=== PATIENT | male | born 1950 | race Caucasian/White ===

== ENCOUNTER 2018-12-04 23:52 | Inpatient (IN) | payer MEDICARE, SELFPAY ==
[~2018-12-04] VITALS: Ht 180.3 cm; Wt 161.0 kg
[2018-12-05 01:24] LABS: BASO # 0.1 x10^3/uL (0.0-0.2); BASO % 1 % (0-3); EOS # 0.5 x10^3/uL (0.0-0.7); EOS % 6 % (0-3); HEMOGLOBIN 13.9 g/dL (13.0-17.5); LYMPH # 0.7 x10^3/uL (1.0-4.8); LYMPH % 8 % (24-48); MEAN CORPUSCULAR HEMOGLOBIN 32 pg (25-35); MEAN CORPUSCULAR HGB CONC 32 g/dL (31-37); MEAN CORPUSCULAR VOLUME 98 fL (79-100); MONO # 0.8 x10^3/uL (0.0-1.1); MONO % 10 % (0-9); NEUT # 6.3 x10^3uL (1.8-7.7); NEUT % 75 % (31-73); PLATELET COUNT 241 x10^3/uL (140-400); RED BLOOD COUNT 4.37 x10^6/uL (4.30-5.70); WHITE BLOOD COUNT 8.4 x10^3/uL (4.0-11.0)
[2018-12-05 01:39] LABS: CALCIUM 8.8 mg/dL (8.5-10.1); CREATININE 1.4 mg/dL (0.7-1.3); GFR 50.1; POTASSIUM 4.3 mmol/L (3.5-5.1)
[2018-12-05 01:44] LABS: ALBUMIN 3.3 g/dL (3.4-5.0); ALBUMIN/GLOBULIN RATIO 0.6 (1.0-1.7); TOTAL BILIRUBIN 0.6 mg/dL (0.2-1.0); TOTAL PROTEIN 8.6 g/dL (6.4-8.2)
[2018-12-05] MEDS ORDERED: IPRATRPIUM/ALBUTEROL 0.5/2.5MG 3 ML NEBU. NEB ONE (02:00)
[2018-12-05 03:00] VITALS: BP 160/78
--- NOTE | 2018-12-05 03:21 | PHYS DOC ---
Past Medical History Past Medical History: COPD, CVA, Diabetes-Type II, Heart Disease, Hypertension, Renal Disease, Stroke Past Surgical History: Pacemaker Additional Past Surgical Histo: HERNIA Alcohol Use: None Drug Use: None Adult General Chief Complaint Chief Complaint: SHORTNESS OF BREATH HPI HPI Patient is a 68 year old male with history of COPD, as heart failure, who presents with increased leg swelling with weeping of bilateral lower extremities. Patient has history of chronic respiratory failure requiring 4 L by nasal cannula. His reported to have O2 saturation and upper 80s. No fever chills, nausea vomiting or sweats. No chest pain, shortness of breath. Denies history of DVT or PE. No other acute symptoms or complaints.[] Review of Systems Review of Systems Review symptoms as per history of present illness. All other review symptoms are negative. All other systems were reviewed and found to be within normal limits, except as documented in this note. Current Medications Current Medications Current Medications Medications (Trade) Dose Ordered Sig/Clau Start Time Stop Time Status Last Admin Dose Admin Albuterol/ Ipratropium (Duoneb) 3 ml 1X ONCE 12/05/18 02:00 12/05/18 02:01 DC 12/05/18 01:50 3 ML Allergies Allergies Allergies Coded Allergies Type Severity Reaction Last Updated Verified adhesive tape Allergy Intermediate 12/05/18 Yes Physical Exam Physical Exam Constitutional: Well developed, well nourished, no acute distress, non-toxic ap pearance. [] HENT: Normocephalic, atraumatic, bilateral external ears normal, nose normal. [] Eyes: PERRL. [] Neck: Normal range of motion. [] Cardiovascular:Heart rate regular rhythm, no murmur, peripheral edema, negative Homans sign/ [] Lungs & Thorax: Respirations diminished coarse breath sounds bilaterally.[] Abdomen: Bowel sounds normal, soft, ventral wall hernia. [] Skin: Warm, dry, no erythema, no rash. [] Back: No tenderness, no CVA tenderness. [] Extremities: Left hand partial amputation[] Neurologic: Alert and oriented X 3, normal motor function, normal sensory functi on, no focal deficits noted. [] Psychologic: Affect normal, judgement normal, mood normal. [] Current Patient Data Vital Signs Vital Signs Date Time Temp Pulse Resp B/P (MAP) Pulse Ox O2 Delivery O2 Flow Rate FiO2 12/05/18 01:49 96 Nasal Cannula 4.0 12/05/18 01:32 72 137/71 (93) 12/05/18 00:08 98.7 22 98.7 Lab Values Laboratory Tests Test 12/05/18 01:10 White Blood Count 8.4 x10^3/uL (4.0-11.0) Red Blood Count 4.37 x10^6/uL (4.30-5.70) Hemoglobin 13.9 g/dL (13.0-17.5) Hematocrit 43.0 % (39.0-53.0) Mean Corpuscular Volume 98 fL (79-100) Mean Corpuscular Hemoglobin 32 pg (25-35) Mean Corpuscular Hemoglobin Concent 32 g/dL (31-37) Red Cell Distribution Width 15.0 % (11.5-14.5) H Platelet Count 241 x10^3/uL (140-400) Neutrophils (%) (Auto) 75 % (31-73) H Lymphocytes (%) (Auto) 8 % (24-48) L Monocytes (%) (Auto) 10 % (0-9) H Eosinophils (%) (Auto) 6 % (0-3) H Basophils (%) (Auto) 1 % (0-3) Neutrophils # (Auto) 6.3 x10^3uL (1.8-7.7) Lymphocytes # (Auto) 0.7 x10^3/uL (1.0-4.8) L Monocytes # (Auto) 0.8 x10^3/uL (0.0-1.1) Eosinophils # (Auto) 0.5 x10^3/uL (0.0-0.7) Basophils # (Auto) 0.1 x10^3/uL (0.0-0.2) Sodium Level 142 mmol/L (136-145) Potassium Level 4.3 mmol/L (3.5-5.1) Chloride Level 105 mmol/L (98-107) Carbon Dioxide Level 31 mmol/L (21-32) Anion Gap 6 (6-14) Blood Urea Nitrogen 24 mg/dL (8-26) Creatinine 1.4 mg/dL (0.7-1.3) H Estimated GFR (Cockcroft-Gault) 50.1 BUN/Creatinine Ratio 17 (6-20) Glucose Level 99 mg/dL (70-99) Lactic Acid Level 0.6 mmol/L (0.4-2.0) Calcium Level 8.8 mg/dL (8.5-10.1) Total Bilirubin 0.6 mg/dL (0.2-1.0) Aspartate Amino Transferase (AST) 16 U/L (15-37) Alanine Aminotransferase (ALT) 19 U/L (16-63) Alkaline Phosphatase 89 U/L (46-116) Troponin I Quantitative < 0.017 ng/mL (0.000-0.055) C-Reactive Protein, Quantitative 20.0 mg/L (0-3.3) H ND-Pkp-U-Type Natriuretic Peptide 744 pg/mL (0-124) H Total Protein 8.6 g/dL (6.4-8.2) H Albumin 3.3 g/dL (3.4-5.0) L Albumin/Globulin Ratio 0.6 (1.0-1.7) L Laboratory Tests 12/05/18 01:10 Laboratory Tests 12/05/18 01:10 EKG EKG [EKG: Atrial fibrillation, rate 95, QTC 504.] Radiology/Procedures Radiology/Procedures [Chest x-ray: Cardiomegaly, question left pleural effusion versus infiltrate on preliminary ED review] Course & Med Decision Making Course & Med Decision Making Pertinent Labs and Imaging studies reviewed. (See chart for details) [Patient given nebs, for treatment of CHF exacerbation. IV Lasix ordered after patient admitted. Patient declining BiPAP mask in the ED. ] Dragon Disclaimer Dragon Disclaimer This electronic medical record was generated, in whole or in part, using a voice recognition dictation system. Departure Departure Impression: Primary Impression: Acute and chronic respiratory failure Additional Impression: Congestive heart failure Disposition: 09 ADMITTED INPATIENT Admitting Physician: Berta Srivastava Condition: IMPROVED Referrals: NON,STAFF (PCP) Problem Qualifiers RANDEE FRANCO DO December 05, 2018 03:21
[2018-12-05] MEDS ORDERED: FUROSEMIDE 20 MG/2 ML VIAL. IVP ONE (03:30)
[2018-12-05] MEDS ORDERED: ONDANSETRON PF 4 MG/2 ML VIAL. IV PRN (03:30)
--- NOTE | 2018-12-05 03:34 | RAD ---
CHEST AP ONLY Clinical Indication: Shortness of air Comparison: None. Findings: There is left chest dual-chamber ICD. Atherosclerotic thoracic aorta. Cardiac size appears normal. There is mild pulmonary vascular congestion. Reticular opacity in the right lung base may be atelectasis or scarring. There is airspace opacity in the left mid to lower lung. There is no pleural effusion or pneumothorax. There is degenerative arthropathy of the bilateral shoulders. IMPRESSION: 1. Moderate left mid and lower lung airspace disease. 2. Mild pulmonary vascular congestion. Electronically signed by: Evan Fernandez MD (12/05/2018 3:31 AM) [facility]
[2018-12-05 07:00] VITALS: BP 142/94
[2018-12-05] MEDS: IPRATRPIUM/ALBUTEROL 0.5/2.5MG 3 ML NEBU. NEB SCH ×4 (08:00→20:00)
[2018-12-05] MEDS ORDERED: FUROSEMIDE 20 MG/2 ML VIAL. IVP SCH (09:00)
[2018-12-05] MEDS ORDERED: NYST15PO9 TP (09:09)
[2018-12-05] MEDS ORDERED: POLY17PO PO (09:09)
[2018-12-05] MEDS ORDERED: ASPI-630 PO (09:09)
[2018-12-05] MEDS ORDERED: DIPH25CA20 PO (09:09)
[2018-12-05] MEDS ORDERED: CARV6.2511 PO (09:09)
[2018-12-05] MEDS ORDERED: TORS20TA2 PO (09:09)
[2018-12-05] MEDS ORDERED: AMIO200T4 PO (09:09)
[2018-12-05] MEDS ORDERED: GLIM2TAB2 PO (09:09)
[2018-12-05] MEDS ORDERED: WARF4TAB64 PO (09:09)
[2018-12-05] MEDS ORDERED: SODI45SP4 NS (09:09)
[2018-12-05] MEDS ORDERED: AMLO5TAB10 PO (09:09)
[2018-12-05] MEDS ORDERED: ACET325T9 PO (09:09)
[2018-12-05] MEDS ORDERED: AMMO226L TP (09:09)
[2018-12-05 09:27] LABS: BASE EXCESS ABG 2 mmol/L (-3-3); HCO3 ABG 27 mmol/L (21-28); PCO2 ABG 44 mmHg (35-46); PO2 ABG 67 mmHg (65-108); SAT O2 ABG 93 % (92-99)
[2018-12-05 09:30] LABS: FIO2 ABG 36%
[2018-12-05] MEDS ORDERED: SODIUM CHLORIDE 0.65% NASAL SPRAY 45ML BOTTLE. NS PRN ×2 (09:45)
[2018-12-05] MEDS: GLIMEPIRIDE 2 MG TABLET. PO SCH (09:47)
[2018-12-05] MEDS: AMIODARONE HCL 200 MG TABLET. PO SCH (09:47)
[2018-12-05] MEDS: amLODIPine BESYLATE 5 MG TABLET PO SCH (09:47)
[2018-12-05] MEDS: ASPIRIN CHEWABLE 81 MG TABLET. PO SCH (09:47)
[2018-12-05] MEDS: CARVEDILOL 6.25 MG TABLET. PO SCH ×2 (09:48→17:13)
[2018-12-05] MEDS: POLYETHYLENE GLYCOL 3350 17 GM PACKET. PO SCH (10:00)
[2018-12-05] MEDS: AMMONIUM LACTATE 12% TOPICAL LOTION 226GM BOTTLE. TP SCH ×3 (10:00→20:39)
[2018-12-05] MEDS ORDERED: PIP/TAZO PER PHARMACY MC PRN (10:00)
[2018-12-05] MEDS: NYSTATIN TOPICAL POWDER 15GM BOTTLE. TP SCH ×3 (10:11→20:39)
[2018-12-05] MEDS: PIPERACILLIN/TAZOBACTAM 3.375 GM in IV NORMAL SALINE 50ML 50 ML IV SCH ×3 (10:12→23:58)
[2018-12-05 10:27] LABS: PROTHROMBIN TIME PATIENT 32.7 SEC (11.7-14.0)
[2018-12-05 11:00] VITALS: BP 138/88
[2018-12-05] MEDS ORDERED: VANCOMYCIN 2 GM in IV NORMAL SALINE 500ML BAG 500 ML IV ONE (11:00)
--- NOTE | 2018-12-05 11:02 | HP ---
ADMIT DATE: 12/05/2018 HISTORY OF PRESENT ILLNESS: The patient is a 68-year-old male patient, a resident at [facility] in [place], who was basically admitted with increasing shortness of breath and worsening swelling of his legs that are weeping on both sides. The patient has also morbid obesity and obstructive sleep apnea, for which he is on BiPAP and apparently given his worsening leg swelling and shortness of breath, a decision was made to transfer him to the Emergency Room of [facility] as he was also hypoxic with oxygen saturation of only 80%. He was extensively investigated and has had a chest x-ray which showed that he has mild to moderate left mid and lower lung airspace disease and mild pulmonary vascular congestion and the patient was admitted with acute on chronic congestive heart failure and COPD exacerbation. He has also severe intertriginous candidiasis and urinary incontinence making that worse. He is diabetic and he is very noncompliant with all his medications. PAST MEDICAL HISTORY: Significant for type 2 diabetes mellitus, hypertension, chronic kidney disease, atrial fibrillation, morbid obesity and obstructive sleep apnea, on CPAP. He has chronic hypoxic hypercapnic respiratory failure, cardiomyopathy, cerebrovascular accident, ventricular tachycardia for which he has AICD and also chronic intertriginous candidiasis. PAST SURGICAL HISTORY: Significant for left heart catheterization, hernia repair, colonoscopy, AICD implantation for ventricular tachycardia. FAMILY HISTORY: Both parents had hypertension. SOCIAL HISTORY: He is single, used to live alone, was a registered nurse. According to him, he does not smoke, drink alcohol or use any recreational drugs. ALLERGIES: He is allergic to TAPE. MEDICATIONS: He is currently on following medications; he is on diphenhydramine 25 mg every 6 hours, Coumadin 4 mg daily, amiodarone 200 mg once a day, carvedilol 6.25 mg twice a day, amlodipine besylate 5 mg daily, aspirin 81 mg once a day, acetaminophen 650 mg every 4 hours, torsemide 20 mg daily, sodium chloride for Saline Mist one spray to each nostril every 4 hours as needed, polyethylene glycol 17 grams daily, glimepiride 2 mg once a day, nystatin powder topically 3 times a day, and ammonium lactate for Lac-Hydrin apply topically twice a day for his dry skin. REVIEW OF SYSTEMS: As per history of present illness. PHYSICAL EXAMINATION: GENERAL: On arrival to the Emergency Room, the patient was slightly tachypneic. There is no pallor, jaundice, cyanosis, or thyromegaly. No jugular venous distention. Marked bilateral lower limb edema. VITAL SIGNS: His heart rate was 84, blood pressure was 122/71, temperature was 98.7, respiratory rate was 52 and oxygen saturation was only 90% on 3 liters of oxygen. HEAD, EYES, EARS, NOSE AND THROAT: Showed normocephalic, atraumatic. NECK: Supple. HEART: Showed normal first and second heart sounds. No gallop, rub or murmur. CHEST: Shows central trachea, equal bilateral chest expansion, air entry, vesicular breath sounds. He has crepitation, mostly in the right side serially. Scattered rhonchi bilaterally. ABDOMEN: Markedly distended, soft with the periumbilical hernia. There is no tenderness. No guarding or rigidity. No organomegaly. All hernial orifices intact. Bowel sounds normal. NEUROLOGIC: He is awake and alert, responding appropriately. All cranial nerves intact. He moves extremities without difficulty, although he is mostly bed bound and wheelchair bound. LABORATORY DATA AND DIAGNOSTIC STUDIES: His lab work on arrival showed a white cell count of 8400, hemoglobin 13.9, hematocrit 43, MCV 98 and platelet count of 241,000 with normal manual differential. His chemistry showed serum sodium of 142, potassium 4.3, chloride 105, bicarbonate 31, anion gap of 6, BUN 24, creatinine 1.4, estimated GFR was 50 mL per minute, his glucose was 99, calcium was 8.8. Total bilirubin, AST, ALT, alkaline phosphatase normal. His total protein was 8.6, albumin was 3.3. His chest x-ray showed that there is a left chest dual chamber ICD, has atherosclerotic thoracic aorta. Cardiac size appears normal. There is mild pulmonary vascular congestion; reticular opacity in the right lung base, may be atelectasis or scarring. There is airspace opacity in the left mid to lower lung. There is no pleural effusion or pneumothorax. There is degenerative arthropathy in the bilateral shoulders. ASSESSMENT AND PLAN: The patient was admitted with chronic obstructive pulmonary disease exacerbation, acute on chronic hypoxic hypercapnic respiratory failure and questionable healthcare-associated pneumonia as chest x-ray showed that he has left lower lobe infiltrate and he has also congestive heart failure, probably acute diastolic and chronic and he has urinary incontinence for which he has an indwelling Jacome catheter and also severe intertriginous candidiasis that is very resistant to treatment to treat him with multiple courses of nystatin powder as well as Diflucan. The patient unfortunately is very noncompliant, does not allow us to check his blood sugars and the glucosuria probably aggravates his candidiasis. My plan is to resume all his medications, consult the Communications Senior Associate, check his prothrombin time, INR as well as his arterial blood gases and also consult the Cardiology team to optimize his treatment. We will continue with nystatin topically for now and if he continues to have problem with that, we will consult the Infectious Disease. RENEA RAGLAND MD DR: ANGEL/nila JOB#: [id number] / [id number]
--- NOTE | 2018-12-05 11:05 | RAD ---
Bilateral lower extremity venous duplex study 12/05/2018 Clinical History: Bilateral leg swelling. Noncompliant with Coumadin. Technique: Using a combination of real time ultrasound imaging and color-flow and pulse Doppler imaging techniques along with graded compression and augmentation, duplex evaluation of the deep venous system of the both lower extremities was performed. Multiple images were obtained. Findings: There is no sonographic evidence of deep venous thrombosis involving the visualized deep venous structures of either lower extremity. Impression: Negative study. Electronically signed by: Abhishek Price MD (12/05/2018 11:02 AM) [facility]
[2018-12-05] MEDS: diphenhydrAMINE HCL 25 MG CAPSULE PO SCH ×2 (11:50→16:57)
[2018-12-05] MEDS: VANCOMYCIN PER PHARMACY MC PRN (12:47)
--- NOTE | 2018-12-05 12:59 | NUR ---
Pharmacy Vancomycin Dosing Note S:Consulted to monitor and dose vancomycin started 12/05/18. O:BRITTANY DOAN is a 68 year old M with Pneumonia Height: 6 feet, 1 inches Weight: 161 kg [place] Body Weight: 79.90 Adjusted Body Weight: 112.34 Dosing Weight: ADJUSTED Other Antibiotics: ZOSYN LABS: Last BUN: 24 Last Creatinine: 1.4 Creatinine Clearance: 78 mL/min Last WBC: 8.4 Last Procalcitonin: <0.1 Tmax (past 24 hours): 98.1 Microbiology: I/O: 240/1250 Drug Levels: Last level: on at Last dose given 12/05/18 at 1051 Vancomycin Dosing: Loading Dose: 2000 mg x1 Dosing Weight: Actual Target Trough: 15-20 A: Based on: WEIGHT AND RENAL FUNCTION P: 1. BEGIN Vancomycin 1500 mg IV q12h 2. Follow up Trough level on 12/06/18 at 2230 3. Pharmacy will continue to monitor, follow and adjust therapy as needed. Stacie Taylor RPH, 12/05/18 [id number]
[2018-12-05 15:00] VITALS: BP 122/65
--- NOTE | 2018-12-05 15:57 | EKG ---
[facility] [address] [place] [address] Test Date: 2018-12-05 Test Time: 00:51:48 Pat Name: BRITTANY DOAN Department: Room: [facility] Gender: M Hospital Admissions Clerk: : 1950 Requested By: RANDEE FRANCO Order Number: [id number] Reading MD: Sherif Quezada MD Measurements Intervals [place] Rate: 95 P: CT: QRS: -31 QRSD: 118 T: 56 QT: 398 QTc: 503 Interpretive Statements ATRIAL FIBRILLATION ABNORMAL LEFT AXIS DEVIATION LEFT ANTERIOR FASCICULAR BLOCK QRS(T) CONTOUR ABNORMALITY CONSIDER ANTEROSEPTAL MYOCARDIAL DAMAGE PROLONGED QT ABNORMAL ECG Electronically Signed On 12-05-2018 17:02:46 CDT by Sherif Quezada MD
--- NOTE | 2018-12-05 16:16 | PDOC ---
PULMONARY PROGRESS NOTES Vitals Vital Signs Date Time Temp Pulse Resp B/P (MAP) Pulse Ox O2 Delivery O2 Flow Rate FiO2 12/05/18 11:00 98.1 87 18 138/88 (105) 96 Nasal Cannula 4.0 98.1 Labs Laboratory Tests Test 12/05/18 01:10 12/05/18 07:14 12/05/18 09:15 12/05/18 11:26 White Blood Count 8.4 x10^3/uL (4.0-11.0) Red Blood Count 4.37 x10^6/uL (4.30-5.70) Hemoglobin 13.9 g/dL (13.0-17.5) Hematocrit 43.0 % (39.0-53.0) Mean Corpuscular Volume 98 fL (79-100) Mean Corpuscular Hemoglobin 32 pg (25-35) Mean Corpuscular Hemoglobin Concent 32 g/dL (31-37) Red Cell Distribution Width 15.0 % (11.5-14.5) Platelet Count 241 x10^3/uL (140-400) Neutrophils (%) (Auto) 75 % (31-73) Lymphocytes (%) (Auto) 8 % (24-48) Monocytes (%) (Auto) 10 % (0-9) Eosinophils (%) (Auto) 6 % (0-3) Basophils (%) (Auto) 1 % (0-3) Neutrophils # (Auto) 6.3 x10^3uL (1.8-7.7) Lymphocytes # (Auto) 0.7 x10^3/uL (1.0-4.8) Monocytes # (Auto) 0.8 x10^3/uL (0.0-1.1) Eosinophils # (Auto) 0.5 x10^3/uL (0.0-0.7) Basophils # (Auto) 0.1 x10^3/uL (0.0-0.2) Prothrombin Time 32.7 SEC (11.7-14.0) Prothromb Time International Ratio 3.2 (0.8-1.1) Sodium Level 142 mmol/L (136-145) Potassium Level 4.3 mmol/L (3.5-5.1) Chloride Level 105 mmol/L (98-107) Carbon Dioxide Level 31 mmol/L (21-32) Anion Gap 6 (6-14) Blood Urea Nitrogen 24 mg/dL (8-26) Creatinine 1.4 mg/dL (0.7-1.3) Estimated GFR (Cockcroft-Gault) 50.1 BUN/Creatinine Ratio 17 (6-20) Glucose Level 99 mg/dL (70-99) Lactic Acid Level 0.6 mmol/L (0.4-2.0) Calcium Level 8.8 mg/dL (8.5-10.1) Total Bilirubin 0.6 mg/dL (0.2-1.0) Aspartate Amino Transf (AST/SGOT) 16 U/L (15-37) Alanine Aminotransferase (ALT/SGPT) 19 U/L (16-63) Alkaline Phosphatase 89 U/L (46-116) Troponin I Quantitative < 0.017 ng/mL (0.000-0.055) C-Reactive Protein, Quantitative 20.0 mg/L (0-3.3) FG-Bti-T-Type Natriuretic Peptide 744 pg/mL (0-124) Total Protein 8.6 g/dL (6.4-8.2) Albumin 3.3 g/dL (3.4-5.0) Albumin/Globulin Ratio 0.6 (1.0-1.7) Procalcitonin < 0.10 ng/mL (0.00-0.10) Glucose (Fingerstick) 153 mg/dL (70-99) 137 mg/dL (70-99) O2 Saturation 93 % (92-99) Arterial Blood pH 7.41 (7.35-7.45) Arterial Blood pCO2 at Patient Temp 44 mmHg (35-46) Arterial Blood pO2 at Patient Temp 67 mmHg (65-108) Arterial Blood HCO3 27 mmol/L (21-28) Arterial Blood Base Excess 2 mmol/L (-3-3) FiO2 36% Laboratory Tests Test 12/05/18 01:10 12/05/18 07:14 12/05/18 09:15 12/05/18 11:26 White Blood Count 8.4 x10^3/uL (4.0-11.0) Red Blood Count 4.37 x10^6/uL (4.30-5.70) Hemoglobin 13.9 g/dL (13.0-17.5) Hematocrit 43.0 % (39.0-53.0) Mean Corpuscular Volume 98 fL (79-100) Mean Corpuscular Hemoglobin 32 pg (25-35) Mean Corpuscular Hemoglobin Concent 32 g/dL (31-37) Red Cell Distribution Width 15.0 % (11.5-14.5) Platelet Count 241 x10^3/uL (140-400) Neutrophils (%) (Auto) 75 % (31-73) Lymphocytes (%) (Auto) 8 % (24-48) Monocytes (%) (Auto) 10 % (0-9) Eosinophils (%) (Auto) 6 % (0-3) Basophils (%) (Auto) 1 % (0-3) Neutrophils # (Auto) 6.3 x10^3uL (1.8-7.7) Lymphocytes # (Auto) 0.7 x10^3/uL (1.0-4.8) Monocytes # (Auto) 0.8 x10^3/uL (0.0-1.1) Eosinophils # (Auto) 0.5 x10^3/uL (0.0-0.7) Basophils # (Auto) 0.1 x10^3/uL (0.0-0.2) Prothrombin Time 32.7 SEC (11.7-14.0) Prothromb Time International Ratio 3.2 (0.8-1.1) Sodium Level 142 mmol/L (136-145) Potassium Level 4.3 mmol/L (3.5-5.1) Chloride Level 105 mmol/L (98-107) Carbon Dioxide Level 31 mmol/L (21-32) Anion Gap 6 (6-14) Blood Urea Nitrogen 24 mg/dL (8-26) Creatinine 1.4 mg/dL (0.7-1.3) Estimated GFR (Cockcroft-Gault) 50.1 BUN/Creatinine Ratio 17 (6-20) Glucose Level 99 mg/dL (70-99) Lactic Acid Level 0.6 mmol/L (0.4-2.0) Calcium Level 8.8 mg/dL (8.5-10.1) Total Bilirubin 0.6 mg/dL (0.2-1.0) Aspartate Amino Transf (AST/SGOT) 16 U/L (15-37) Alanine Aminotransferase (ALT/SGPT) 19 U/L (16-63) Alkaline Phosphatase 89 U/L (46-116) Troponin I Quantitative < 0.017 ng/mL (0.000-0.055) C-Reactive Protein, Quantitative 20.0 mg/L (0-3.3) BL-Dfq-P-Type Natriuretic Peptide 744 pg/mL (0-124) Total Protein 8.6 g/dL (6.4-8.2) Albumin 3.3 g/dL (3.4-5.0) Albumin/Globulin Ratio 0.6 (1.0-1.7) Procalcitonin < 0.10 ng/mL (0.00-0.10) Glucose (Fingerstick) 153 mg/dL (70-99) 137 mg/dL (70-99) O2 Saturation 93 % (92-99) Arterial Blood pH 7.41 (7.35-7.45) Arterial Blood pCO2 at Patient Temp 44 mmHg (35-46) Arterial Blood pO2 at Patient Temp 67 mmHg (65-108) Arterial Blood HCO3 27 mmol/L (21-28) Arterial Blood Base Excess 2 mmol/L (-3-3) FiO2 36% Medications Active Scripts Medications Dose Route/Sig Max Daily Dose Days Date Category Saline Mist (Sodium Chloride) 44 Ml [place] 44 Ml NS PRN PRN 12/05/18 Reported Banophen (Diphenhydramine Hcl) 25 Mg Capsule 25 Mg PO Q6HRS 12/05/18 Reported Tylenol (Acetaminophen) 325 Mg Tablet 2 Tab PO PRN Q4HRS 12/05/18 Reported Warfarin Sodium 4 Mg Tablet 4 Mg PO DAILY 12/05/18 Reported Lac-Hydrin Five (Ammonium Lactate) 226 Gm Lotion 226 Gm TP BID 12/05/18 Reported Nystatin 15 Gm Powder 1 [place] TP TID 12/05/18 Reported Carvedilol (Carvedilol) 6.25 Mg Tablet 6.25 Mg PO BIDWMEALS 12/05/18 Reported Torsemide 20 Mg Tablet 1 Tab PO DAILY 12/05/18 Reported Glimepiride 2 Mg Tablet 1 Tab PO DAILY 12/05/18 Reported Gavilax (Polyethylene Glycol 3350) 17 Gm Powd.pack 17 Gm PO DAILY08 12/05/18 Reported Aspirin 81 Mg Tab.chew 1 Tab PO DAILY 12/05/18 Reported Amlodipine Besylate 5 Mg Tablet 5 Mg PO DAILY 12/05/18 Reported Amiodarone Hcl 200 Mg Tablet 1 Tab PO DAILY 12/05/18 Reported Impression . A/C RESP FAILURE ACUTE COR PULMONALE PNEUMONIA THANKS AGREE WITH CURRENT RX ZORA CATHERINE MD December 05, 2018 16:16
--- NOTE | 2018-12-05 17:25 | PDOC2 ---
CARDIOLOGY CONSULT NOTE CHEIF COMPLAINT: Swelling in my legs HPI: Consult requested by Dr. RAGLAND 68-year-old man with multiple comorbidities who presents to the hospital with lower extremity edema. Current working diagnosis is that of acute exacerbation of COPD. The patient was quite difficult to interview and seems to have poor insight into his current physical state. He denied any chest pain or dyspnea but then later stated that he is able to only get around in a wheelchair mostly due to his morbid obesity. He blamed most of his weight gain on food that he receives at the detention. He denies any syncope, palpitations, orthopnea or PND. He hasn't struggling with lower 70 edema for several months. He is currently also being treated for a COPD exacerbation and is on home oxygen therapy. Although the patient has significant cardiovascular history he during the interview denied any specific cardiac problems. PMHX: 1. Morbid obesity 2. COPD 3. Diabetes 4. Hypertension 5. Dyslipidemia 6. Probable diastolic heart failure chronic 7. Probable bilateral venous stasis changes, lymphedema and venous insufficiency. 8. History of ventricular tachycardia, ? ischemic or NICM and s/p dual chamber ICD 9. Atrial fibrillation - likely permanent SOCHX: He lives in a detention. Denies any excessive alcohol use. He does not smoke. FAMHX: Noncontributory CURRENT MEDS: Current Medications Medications (Trade) Dose Ordered Sig/Clau Start Time Stop Time Status Last Admin Dose Admin Acetaminophen (Tylenol) 650 mg PRN Q4HRS PRN 12/05/18 09:45 Albuterol/ Ipratropium (Duoneb) 3 ml RTQID 12/05/18 08:00 12/06/18 07:59 Amiodarone HCl (Cordarone) 200 mg DAILY 12/05/18 10:00 12/05/18 09:47 200 MG Amlodipine Besylate (Norvasc) 5 mg DAILY 12/05/18 10:00 12/05/18 09:47 5 MG Aspirin (Children'S Aspirin) 81 mg DAILY 12/05/18 10:00 12/05/18 09:47 81 MG Carvedilol (Coreg) 6.25 mg BIDWMEALS 12/05/18 10:00 12/05/18 09:48 6.25 MG Diphenhydramine HCl (Benadryl) 25 mg Q6HRS 12/05/18 12:00 Furosemide (Lasix) 40 mg DAILY 12/06/18 09:00 Glimepiride (Amaryl) 2 mg DAILY 12/05/18 10:00 12/05/18 09:47 2 MG Lactic Acid (Lac-Hydrin) 1 karen BID 12/05/18 10:00 Nystatin (Nystop) 1 karen TID 12/05/18 10:00 12/05/18 15:05 1 KAREN Ondansetron HCl (Zofran) 4 mg PRN Q8HRS PRN 12/05/18 03:30 12/06/18 03:29 Piperacillin Sod/ Tazobactam Sod (Zosyn Per Pharmacy) 1 each PRN DAILY PRN 12/05/18 10:00 Piperacillin Sod/ Tazobactam Sod 3.375 gm/Sodium Chloride 50 ml @ 100 mls/hr Q6HRS 12/05/18 10:30 12/05/18 10:12 100 MLS/HR Polyethylene Glycol (miraLAX PACKET) 17 gm DAILY08 12/05/18 10:00 Sodium Chloride (Saline Mist Nasal) 1 karen PRN Q1HR PRN 12/05/18 09:45 Vancomycin HCl (Vanco Per Pharmacy) 1 each PRN DAILY PRN 12/05/18 10:00 12/05/18 12:47 1 EACH Vancomycin HCl (Vancomycin Trough Level) 1 each 1X ONCE 12/06/18 22:30 12/06/18 22:31 Vancomycin HCl 1.5 gm/Sodium Chloride 500 ml @ 250 mls/hr Q12H 12/05/18 23:00 Vancomycin HCl 2 gm/Sodium Chloride 500 ml @ 250 mls/hr 1X ONCE 12/05/18 11:00 12/05/18 12:59 DC 12/05/18 10:51 250 MLS/HR Warfarin Sodium (Coumadin Per Physician) 1 each PRN DAILY PRN 12/05/18 09:45 12/05/18 14:20 1 EACH Warfarin Sodium (Coumadin) 4 mg DAILY16 12/06/18 16:00 ALLERGIES: Allergies Coded Allergies Type Severity Reaction Last Updated Verified adhesive tape Allergy Intermediate 12/05/18 Yes ROS: Negative for 05/09 systems reviewed unless otherwise noted above in HPI. PHYSICAL EXAM: Vital Signs: Vital Signs Date Time Temp Pulse Resp B/P (MAP) Pulse Ox O2 Delivery O2 Flow Rate FiO2 12/05/18 15:00 98.6 93 18 122/65 (84) 93 Nasal Cannula 4.0 98.6 I & O Intake and Output 12/05/18 07:00 Intake Total 240 ml Output Total 1250 ml Balance -1010 ml Intake Oral 240 ml Output Urine Total 1250 ml Physical Exam: GEN.: He is morbidly obese and has tachypnea with eating/talking HEENT: Head is normocephalic, atraumatic NECK: Supple. LUNGS: Decreased breath sounds throughout. HEART: RRR, S1, S2 present. 2+ radial pulses. Unable to palpate pedal pulses. ABDOMEN: Soft, nontender. Positive bowel sounds. EXTREMITIES: 2+ pitting edema, chronic venous stasis changes. NEUROLOGIC: Normal speech, normal tone PSYCHIATRIC: Normal affect, normal mood. SKIN: No obvious ulcerations. DIAGNOSTIC TESTING: Cr 1.4 Hgb/plts wnl. CXR reviewed. Ekg with afib. ASSESSMENT: 1. Acute on chronic probable diastolic HF, 2. s/p ICD with prior arrhythmia 3. Bilateral chronic venous insufficiency, lymphedema likely due to obesity and other comorbidities. PLAN: 1. I spoke with the patient regarding treatment options. He flat out told me that he will not get any further CV interventions. He does not want any invasive procedures. Therefore, we will obtain an echo to ensure that he doesn't have any significant LV dysfunction, which may alter his medical therapy. 2. Continue amiodarone, warfarin for afib. 3. Continue lasix, coreg and amlodipine. Await EF prior to initiation of any after load reducing agents. 4. Check ICD interrogation to rule out arrhythmias. Thanks. Will follow along peripherally. FADY DUMONT MD December 05, 2018 17:25
--- NOTE | 2018-12-05 17:44 | NUR ---
See Nursing Communication. Wu at [employer] at notified for interrogation of ICD tomorrow per order.
[2018-12-05] MEDS: ACETAMINOPHEN 325 MG TABLET. PO PRN (18:36)
[2018-12-05 19:57] VITALS: BP 121/64
--- NOTE | 2018-12-05 21:54 | CONS ---
DATE OF CONSULTATION: 12/05/2018 ATTENDING PHYSICIAN: Dr. Brennan. REASON FOR CONSULTATION: The patient seen in pulmonary consultation at the request of Dr. Brennan for shortness of air, abnormal x-ray revealing left lower lobe airspace disease. HISTORY OF PRESENT ILLNESS: The patient is a 68-year-old that resides at [facility] in [place] was admitted with increasing shortness of breath and lower extremity edema. The patient states he normally wears BiPAP at home. He is compliant with the BiPAP at 5 liters per nasal cannula. He does not walk much. He has noticed some increasing shortness of breath, mainly increasing lower extremity edema, some paroxysmal nocturnal dyspnea. He was found to be hypoxic with O2 saturations in the 80s. He had a chest x-ray, which revealed a left lower lobe airspace disease with questionable effusion. There is definitely mild venous congestion. I was asked to see him in consultation. The patient denied fever, chills, nausea or productive cough. PAST MEDICAL HISTORY: 1. Chronic respiratory failure, normally on 2 liters of oxygen supplementation throughout the day. 2. Obstructive sleep apnea, BiPAP at bedtime. 3. Type 2 diabetes. 4. Morbid obesity. 5. Hypertension. 6. Chronic AFib. 7. Chronic kidney disease. 8. Cardiomyopathy with status post ICD placement. 9. Previous CVA. PAST SURGICAL HISTORY: Left heart catheterization, hernia repair, colonoscopy, AICD placement. FAMILY HISTORY: Hypertension. SOCIAL HISTORY: He lives alone, was a registered nurse, does not smoke. ALLERGIES: LISTED TO TAPE. MEDICATIONS: List was reviewed. He is on anticoagulation and amiodarone. CURRENT MEDICATION: List was reviewed. REVIEW OF SYSTEMS: CONSTITUTIONAL: No fever or chills. EYES: No changes in visual acuity. HENT: No nasal congestion or sore throat. PULMONARY: As indicated above. CARDIOVASCULAR: No recent chest pain or pressure. ABDOMEN: No nausea, vomiting, diarrhea. GENITOURINARY: No dysuria or frequency. MUSCULOSKELETAL: No localized muscle aches or joint pains. SKIN: No new skin rashes. He does have some chronic lower extremity lymphedema and cellulitis. PHYSICAL EXAMINATION: GENERAL: Morbid obese individual in no respiratory distress. BMI of 46, currently on 4 liters. HEENT: Eyes, the sclerae were nonicteric. NECK: Jugular venous distention was not elevated. No lymphadenopathy. CHEST: Full expansion. LUNGS: Crackles throughout both lung garcia. No wheezes. CARDIOVASCULAR: Regular rate and rhythm with S1, S2, no S3. ABDOMEN: Soft, nontender, nondistended. Obese. EXTREMITIES: Obese with edema and cellulitis. NEUROLOGIC: The patient was awake, alert, following commands. A detailed neuro exam was not performed. LABORATORY DATA: Reviewed. White count was 8.4, hemoglobin and hematocrit were noted. Arterial blood gas; pH of 7.41, PaCO2 of 44, PaO2 of 67, bicarb of 27. INR was 3.2. Electrolytes were noted. C-reactive protein was markedly elevated. Troponin level was not elevated. Albumin was 3.3. Chest x-ray as indicated above. IMPRESSION: 1. Ycvkl-pt-qjycdcu hypoxemic respiratory failure. 2. Lijkj-tx-scejzkg cor pulmonale. 3. Chronic lower extremity lymphedema with cellulitis. 4. Left lower lobe airspace disease compatible with pneumonia, possibly Gram-negative or Gram-positive. 5. Morbid obesity. 6. Other comorbidities including type 2 diabetes, hypertension, chronic kidney disease, atrial fibrillation and cardiomyopathy status post automatic implantable cardioverter-defibrillator placement. PLAN: 1. Complex decision making in this patient with multiple comorbidities. We will proceed with treatment for Gram-negative and Gram-positive pneumonia. 2. Diurese. 3. At bedtime BiPAP. 4. Oxygen supplementation throughout the day. 5. Follow clinical course and make further adjustments in his medications. 6. Continue anticoagulation. 7. Monitor blood sugars. 8. Follow up Cardiology input. Dr. Brennan, I do appreciate the privilege in sharing in the patient's care. ZORA CATHERINE MD DR: PABLO/nila JOB#: [id number] / [id number]
[2018-12-05 23:55] VITALS: BP 121/86
[2018-12-05] MEDS: VANCOMYCIN 1.5 GM in IV NORMAL SALINE 500ML BAG 500 ML IV SCH (23:59)
[2018-12-06] MEDS: diphenhydrAMINE HCL 25 MG CAPSULE PO SCH
[2018-12-06] MEDS: ACETAMINOPHEN 325 MG TABLET. PO PRN (00:26)
[2018-12-06] MEDS ORDERED: diphenhydrAMINE HCL 25 MG CAPSULE PO PRN (02:45)
[2018-12-06 03:58] VITALS: BP 123/79
[2018-12-06] MEDS: PIPERACILLIN/TAZOBACTAM 3.375 GM in IV NORMAL SALINE 50ML 50 ML IV SCH ×3 (05:35→17:35)
[2018-12-06 07:30] VITALS: BP 102/78
[2018-12-06] MEDS: POLYETHYLENE GLYCOL 3350 17 GM PACKET. PO SCH (08:00)
[2018-12-06] MEDS ORDERED: MAGNESIUM CITRATE 296 ML SOLUTION. PO ONE (08:30)
--- NOTE | 2018-12-06 08:41 | PDOC ---
PULMONARY PROGRESS NOTES Subjective PT STILL SOA Vitals Vital Signs Date Time Temp Pulse Resp B/P (MAP) Pulse Ox O2 Delivery O2 Flow Rate FiO2 12/06/18 07:30 98.0 80 24 102/78 (86) 97 Nasal Cannula 4.0 98.0 ROS: No Nausea, No Chest Pain, No Abdominal Pain General: Alert Lungs: Wheezing, Crackles Cardiovascular: S1, S2 Abdomen: Other (OBESE) Neuro Exam: Alert Extremities: Other (EDEMA CELLUTITIS) Skin: Warm Labs Laboratory Tests Test 12/05/18 01:10 12/05/18 07:14 12/05/18 07:30 12/05/18 09:15 White Blood Count 8.4 x10^3/uL (4.0-11.0) Red Blood Count 4.37 x10^6/uL (4.30-5.70) Hemoglobin 13.9 g/dL (13.0-17.5) Hematocrit 43.0 % (39.0-53.0) Mean Corpuscular Volume 98 fL (79-100) Mean Corpuscular Hemoglobin 32 pg (25-35) Mean Corpuscular Hemoglobin Concent 32 g/dL (31-37) Red Cell Distribution Width 15.0 % (11.5-14.5) Platelet Count 241 x10^3/uL (140-400) Neutrophils (%) (Auto) 75 % (31-73) Lymphocytes (%) (Auto) 8 % (24-48) Monocytes (%) (Auto) 10 % (0-9) Eosinophils (%) (Auto) 6 % (0-3) Basophils (%) (Auto) 1 % (0-3) Neutrophils # (Auto) 6.3 x10^3uL (1.8-7.7) Lymphocytes # (Auto) 0.7 x10^3/uL (1.0-4.8) Monocytes # (Auto) 0.8 x10^3/uL (0.0-1.1) Eosinophils # (Auto) 0.5 x10^3/uL (0.0-0.7) Basophils # (Auto) 0.1 x10^3/uL (0.0-0.2) Prothrombin Time 32.7 SEC (11.7-14.0) Prothromb Time International Ratio 3.2 (0.8-1.1) Sodium Level 142 mmol/L (136-145) Potassium Level 4.3 mmol/L (3.5-5.1) Chloride Level 105 mmol/L (98-107) Carbon Dioxide Level 31 mmol/L (21-32) Anion Gap 6 (6-14) Blood Urea Nitrogen 24 mg/dL (8-26) Creatinine 1.4 mg/dL (0.7-1.3) Estimated GFR (Cockcroft-Gault) 50.1 BUN/Creatinine Ratio 17 (6-20) Glucose Level 99 mg/dL (70-99) Lactic Acid Level 0.6 mmol/L (0.4-2.0) Calcium Level 8.8 mg/dL (8.5-10.1) Total Bilirubin 0.6 mg/dL (0.2-1.0) Aspartate Amino Transf (AST/SGOT) 16 U/L (15-37) Alanine Aminotransferase (ALT/SGPT) 19 U/L (16-63) Alkaline Phosphatase 89 U/L (46-116) Troponin I Quantitative < 0.017 ng/mL (0.000-0.055) C-Reactive Protein, Quantitative 20.0 mg/L (0-3.3) NT-Mhj-Q-Type Natriuretic Peptide 744 pg/mL (0-124) Total Protein 8.6 g/dL (6.4-8.2) Albumin 3.3 g/dL (3.4-5.0) Albumin/Globulin Ratio 0.6 (1.0-1.7) Procalcitonin < 0.10 ng/mL (0.00-0.10) Glucose (Fingerstick) 153 mg/dL (70-99) Nasal Screen MRSA (PCR) Positive (Negative) O2 Saturation 93 % (92-99) Arterial Blood pH 7.41 (7.35-7.45) Arterial Blood pCO2 at Patient Temp 44 mmHg (35-46) Arterial Blood pO2 at Patient Temp 67 mmHg (65-108) Arterial Blood HCO3 27 mmol/L (21-28) Arterial Blood Base Excess 2 mmol/L (-3-3) FiO2 36% Test 12/05/18 11:26 12/05/18 16:31 12/05/18 20:46 12/06/18 07:48 Glucose (Fingerstick) 137 mg/dL (70-99) 92 mg/dL (70-99) 114 mg/dL (70-99) 121 mg/dL (70-99) Laboratory Tests Test 12/05/18 09:15 12/05/18 11:26 12/05/18 16:31 12/05/18 20:46 O2 Saturation 93 % (92-99) Arterial Blood pH 7.41 (7.35-7.45) Arterial Blood pCO2 at Patient Temp 44 mmHg (35-46) Arterial Blood pO2 at Patient Temp 67 mmHg (65-108) Arterial Blood HCO3 27 mmol/L (21-28) Arterial Blood Base Excess 2 mmol/L (-3-3) FiO2 36% Glucose (Fingerstick) 137 mg/dL (70-99) 92 mg/dL (70-99) 114 mg/dL (70-99) Test 12/06/18 07:48 Glucose (Fingerstick) 121 mg/dL (70-99) Medications Active Scripts Medications Dose Route/Sig Max Daily Dose Days Date Category Saline Mist (Sodium Chloride) 44 Ml Laotto 44 Ml NS PRN PRN 12/05/18 Reported Banophen (Diphenhydramine Hcl) 25 Mg Capsule 25 Mg PO Q6HRS 12/05/18 Reported Tylenol (Acetaminophen) 325 Mg Tablet 2 Tab PO PRN Q4HRS 12/05/18 Reported Warfarin Sodium 4 Mg Tablet 4 Mg PO DAILY 12/05/18 Reported Lac-Hydrin Five (Ammonium Lactate) 226 Gm Lotion 226 Gm TP BID 12/05/18 Reported Nystatin 15 Gm Powder 1 Yamila TP TID 12/05/18 Reported Carvedilol (Carvedilol) 6.25 Mg Tablet 6.25 Mg PO BIDWMEALS 12/05/18 Reported Torsemide 20 Mg Tablet 1 Tab PO DAILY 12/05/18 Reported Glimepiride 2 Mg Tablet 1 Tab PO DAILY 12/05/18 Reported Gavilax (Polyethylene Glycol 3350) 17 Gm Powd.pack 17 Gm PO DAILY08 12/05/18 Reported Aspirin 81 Mg Tab.chew 1 Tab PO DAILY 12/05/18 Reported Amlodipine Besylate 5 Mg Tablet 5 Mg PO DAILY 12/05/18 Reported Amiodarone Hcl 200 Mg Tablet 1 Tab PO DAILY 12/05/18 Reported Impression . IMPRESSION: 1. Xzzrs-bx-laxpsog hypoxemic respiratory failure. 2. Ltlgc-zh-qwsaiil cor pulmonale. 3. Chronic lower extremity lymphedema with cellulitis. 4. Left lower lobe airspace disease compatible with pneumonia, possibly Gram-negative or Gram-positive. 5. Morbid obesity. 6. Other comorbidities including type 2 diabetes, hypertension, chronic kidney disease, atrial fibrillation and cardiomyopathy status post automatic implantable cardioverter-defibrillator placement. Plan . PT UNABLE TO SIT UP IN CHAIR UNABLE TO TOLERATED CPAP/BIPAP WITH FULL FACE MASK I THINK MAIN PROBLEM IS ACUTE COR PULMONALE TREAT FOR PNEUMONIA DIFFICULT SITUATION TO MANAGE 12/05 1. Complex decision making in this patient with multiple comorbidities. We will proceed with treatment for Gram-negative and Gram-positive pneumonia. 2. Diurese. 3. At bedtime BiPAP. 4. Oxygen supplementation throughout the day. 5. Follow clinical course and make further adjustments in his medications. 6. Continue anticoagulation. 7. Monitor blood sugars. 8. Follow up Cardiology input. Dr. Brennan, I do appreciate the privilege in sharing in the patient's care. ZORA CATHERINE MD December 06, 2018 08:41
[2018-12-06] MEDS: DOCUSATE SODIUM 100 MG CAPSULE. PO SCH ×3 (09:00→21:00)
[2018-12-06] MEDS: GLIMEPIRIDE 2 MG TABLET. PO SCH (09:41)
[2018-12-06] MEDS: ASPIRIN CHEWABLE 81 MG TABLET. PO SCH (09:41)
[2018-12-06] MEDS: AMIODARONE HCL 200 MG TABLET. PO SCH (09:42)
[2018-12-06] MEDS: CARVEDILOL 6.25 MG TABLET. PO SCH ×2 (09:42→17:34)
[2018-12-06] MEDS: AMMONIUM LACTATE 12% TOPICAL LOTION 226GM BOTTLE. TP SCH ×2 (09:43→21:37)
[2018-12-06] MEDS: amLODIPine BESYLATE 5 MG TABLET PO SCH (09:43)
[2018-12-06] MEDS: FUROSEMIDE 40 MG/4 ML VIAL. IVP SCH (09:43)
[2018-12-06] MEDS: NYSTATIN TOPICAL POWDER 15GM BOTTLE. TP SCH ×3 (09:44→21:36)
--- NOTE | 2018-12-06 09:45 | NUR ---
Wound Care Pt seen for wound care consult re: LE wounds. Pt has two stasis ulcers on his left lower leg, superficial, sloughy and draining min-moderate amount, wounds cleaned and redressed with Xeroform gauze, ABD and kerlix, pt refused lotion, admission photos in chart. Pt also has maceration, redness and yeast to groin and pannus folds, areas cleaned, dried and Nystatin powder applied. After several requests, pt continues to decline for WCRNs to assess pt's backside, pt became angry and stated he's getting ready for lunch and doesn't want us to move him, will attempt to reassess at another time. no other wounds noted on skin inspection, heels floated with pillows.
--- NOTE | 2018-12-06 10:00 | NUR ---
IP: Pt is mrsa screen + requiring contact precautions.
[2018-12-06] MEDS: VANCOMYCIN PER PHARMACY MC PRN (10:11)
[2018-12-06] MEDS: MULTIVITAMIN with MINERAL TABLET. PO SCH (10:33)
[2018-12-06] MEDS: ASCORBIC ACID 500 MG TABLET PO SCH (10:33)
[2018-12-06 10:51] VITALS: BP 108/72
[2018-12-06] MEDS: LACTOBACILLUS RHAMNOSUS GG 1 CAPSULE. PO SCH ×2 (13:00→21:36)
[2018-12-06] MEDS: VANCOMYCIN 1.5 GM in IV NORMAL SALINE 500ML BAG 500 ML IV SCH (13:12)
--- NOTE | 2018-12-06 15:26 | CARD ---
MR#: [id number] Date of Study: 12/06/2018 Ordering Physician: FADY QUEZADA, Referring Physician: RENEA RAGLAND, Tech: Mee Carmona APPROVED REPORT EXAM: Two-dimensional and M-mode echocardiogram with Doppler and color Doppler. Other Information Quality : FairHR: 78bpm INDICATION COPD Dyspnea Atrial Fibrillation Cardiomyopathy Congestive Heart Failure Surgery/Intervention ICD/Pacemaker: Date: 2013 RISK FACTORS Hyperlipidemia Diabetes 2D DIMENSIONS RVDd3.4 (2.9-3.5cm)Left Atrium(2D)3.7 (1.6-4.0cm) IVSd1.4 (0.7-1.1cm)Aortic Root(2D)3.6 (2.0-3.7cm) LVDd6.4 (3.9-5.9cm)LVOT Diameter2.7 (1.8-2.4cm) PWd1.2 (0.7-1.1cm)LVDs4.3 (2.5-4.0cm) FS (%) 28.7 %SV111.5 ml LVEF(%)54.2 (>50%) Aortic Valve AoV Peak Porfirio.148.0cm/sAoV VTI26.4cm AO Peak GR.8.8mmHgLVOT VTI 17.22cm AO Mean GR.5mmHg TDI Lateral E' P. V11.39cm/sMedial E' P. V10.49cm/s Tricuspid Valve TR P. Iwilihgg992oj/sRAP DIJSXJWQ1zqNf TR Peak Gr.42mfLgMHXX57lnIg Pulmonary Vein S1 Zspfgijk21.8cm/sS2 Ubjgtnvp63.67cm/s D2 Mcaoypnb02.7cm/sPVa qgcmbnqr290jgon LEFT VENTRICLE The Left Ventricle is mildly dilated. There is mild to moderate concentric left ventricular hypertrop hy. The left ventricular systolic function is low normal. The Ejection Fraction is 50%. Unable to det ermine wall motion accurately due to image limitation but grossly within normal limits. Tissue Dopple r imaging reveals moderate left ventricular diastolic dysfunction. RIGHT VENTRICLE The right ventricle is borderline dilated. There is normal right ventricular wall thickness. The righ t ventricular systolic function is normal. ATRIA The left atrium is moderately dilated. The right atrium is mildly dilated. The interatrial septum is intact with no evidence for an atrial septal defect or patent foramen ovale as noted on 2-D or Dopple r imaging. AORTIC VALVE Doppler and Color Flow revealed no significant aortic regurgitation. There is no significant aortic v alvular stenosis. MITRAL VALVE There is no evidence of mitral valve prolapse. There is no mitral valve stenosis. Doppler and Color F low revealed no mitral valve regurgitation noted. TRICUSPID VALVE The tricuspid valve is not well visualized. Doppler and Color Flow revealed trace tricuspid regurgita tion. There is no tricuspid valve stenosis. PULMONIC VALVE The pulmonic valve is not well visualized. Doppler and Color Flow revealed no pulmonic valvular regur gitation. GREAT VESSELS The aortic root is normal in size. The IVC is normal in size and collapses >50% with inspiration. PERICARDIAL EFFUSION There is no evidence of significant pericardial effusion. Critical Notification Critical Value: No <Conclusion> The left ventricular systolic function is low normal. The Ejection Fraction is 50%. Unable to determine wall motion accurately due to image limitation but grossly within normal limits. Tissue Doppler imaging reveals moderate left ventricular diastolic dysfunction. Signed by : Fady Quezada, Electronically Approved : 12/06/2018 15:25:34
--- NOTE | 2018-12-06 15:33 | NUR ---
KRISTI consulted for dc needs. Chart reviewed and BASSAM RN. KRISTI confirmed with [facility], pt is LTC resident at [facility] and plan of return upon dc.
[2018-12-06 15:43] VITALS: BP 106/78
[2018-12-06] MEDS ORDERED: SODIUM CHLORIDE 0.65% NASAL SPRAY 45ML BOTTLE. NS PRN (16:00)
[2018-12-06] MEDS: WARFARIN 4 MG TABLET. PO SCH (17:35)
[2018-12-06 19:20] VITALS: BP 130/77
--- NOTE | 2018-12-06 22:51 | PN ---
DATE: 12/06/2018 SUBJECTIVE: The patient is resting slightly propped up in bed, in no apparent respiratory distress. Awake, alert, continued to complain of swelling of both lower extremities, shortness of breath. He is clearly orthopneic, cannot lie flat. We did do a Doppler ultrasound of both lower extremities, which showed no evidence of deep vein thrombosis involving the visualized deep venous structure of either lower extremity. He was seen by the cable reeler who is interrogating the AICD and ordering an echocardiogram. The patient was initially refusing to do the echocardiogram thinking that was an MRI. I explained to him the nature of the test and that it was not invasive and apparently finally he agreed to it. He was seen also by the salesperson furniture. We did start him on IV antibiotic for his left lower lobe pneumonia. PHYSICAL EXAMINATION: GENERAL: When I examined him this morning, he was resting, slightly propped up in bed, clearly tachypneic, but no pallor, jaundice or cyanosis. No lymphadenopathy, no thyromegaly. No jugular venous distention, but bilateral lower limb edema. VITAL SIGNS: His heart rate was 80, blood pressure was 102/78, temperature was 98, respiratory rate 24, and oxygen saturation was 97% on 4 liters of oxygen. HEAD, EYES, EARS, NOSE AND THROAT: Showed normocephalic, atraumatic. NECK: Supple. HEART: Showed normal first and second sounds. No gallop, rub or murmur. CHEST: Showed central trachea, equally reduced expansion, air entry, vesicular sounds with crepitation mostly in the left side posteriorly, few scattered rhonchi bilaterally. ABDOMEN: Distended, soft, nontender. NEUROLOGIC: He is awake, alert, responding appropriately. All cranial nerves intact. EXTREMITIES: He moves extremities without difficulty. He has marked bilateral lower extremity lymphedema. SKIN: He has also an indwelling Jacome catheter with marked intertriginous candidiasis in both groins and perianal and scrotal area. His intake was 0, output was 1250. LABORATORY DATA: As of yesterday showed that has no lactic acidosis. His BUN is 24, creatinine 1.4. His hemoglobin was 14, hematocrit 43 with normal white cell count and platelets. His nasal screen for MRSA with PCR was positive. His blood cultures so far negative. ASSESSMENT: In summary, this is a 68-year-old male patient who was most time very noncompliant with care and medication who was admitted with: 1. Ulaos-vx-jhizaib diastolic congestive heart failure. 2. Hyfzx-sn-cgchefi hypoxic respiratory failure. 3. Left lower lobe pneumonia. 4. Morbid obesity, obstructive sleep apnea, on BiPAP. 5. Type 2 diabetes. 6. Hypertension. 7. Chronic atrial fibrillation. 8. Chronic kidney disease. 9. History of cerebrovascular accident. 10. He has cardiomyopathy, status post ICD placement. PLAN: To continue with IV antibiotic. Continue with IV antibiotic. Continue with IV Lasix. We will consult the wound care team for his bilateral lymphedema and also wounds in his left leg. Continue to monitor his blood sugar. Continue with his current medication in the form of glimepiride 2 mg once a day and continue with amiodarone and Coumadin to control his heart for stroke prevention. He is constipated, so I added Colace as well as magnesium citrate. RENEA RAGLAND MD DR: ANGEL/nila JOB#: [id number] / [id number]
[2018-12-06 23:14] LABS: BASO # 0.1 x10^3/uL (0.0-0.2); BASO % 1 % (0-3); EOS # 0.5 x10^3/uL (0.0-0.7); EOS % 6 % (0-3); HEMATOCRIT 40.1 % (39.0-53.0); HEMOGLOBIN 13.1 g/dL (13.0-17.5); LYMPH # 0.6 x10^3/uL (1.0-4.8); LYMPH % 8 % (24-48); MEAN CORPUSCULAR HEMOGLOBIN 32 pg (25-35); MEAN CORPUSCULAR HGB CONC 33 g/dL (31-37); MEAN CORPUSCULAR VOLUME 99 fL (79-100); MONO # 0.7 x10^3/uL (0.0-1.1); MONO % 10 % (0-9); NEUT # 5.8 x10^3uL (1.8-7.7); NEUT % 75 % (31-73); PLATELET COUNT 208 x10^3/uL (140-400); RED BLOOD COUNT 4.06 x10^6/uL (4.30-5.70); RED CELL DISTRIBUTION WIDTH 14.5 % (11.5-14.5); WHITE BLOOD COUNT 7.7 x10^3/uL (4.0-11.0)
[2018-12-06 23:22] VITALS: BP 130/87
[2018-12-06 23:23] LABS: PROTHROMBIN TIME PATIENT 24.5 SEC (11.7-14.0)
[2018-12-06 23:32] LABS: ALBUMIN 2.8 g/dL (3.4-5.0); ALBUMIN/GLOBULIN RATIO 0.6 (1.0-1.7); CALCIUM 8.5 mg/dL (8.5-10.1); CREATININE 1.7 mg/dL (0.7-1.3); MAGNESIUM 2.1 mg/dL (1.8-2.4); TOTAL BILIRUBIN 0.6 mg/dL (0.2-1.0); TOTAL PROTEIN 7.6 g/dL (6.4-8.2)
[2018-12-06 23:34] LABS: VANC TR 22.6 mcg/mL (10.0-20.0)
[2018-12-07] MEDS: PIPERACILLIN/TAZOBACTAM 3.375 GM in IV NORMAL SALINE 50ML 50 ML IV SCH ×4 (02:01→18:00)
[2018-12-07] MEDS: VANCOMYCIN PER PHARMACY MC PRN ×2 (02:15→13:00)
--- NOTE | 2018-12-07 02:15 | NUR ---
Pharmacy Vancomycin Dosing Note S:Consulted to monitor and dose vancomycin started 12/05/18. O:BRITTANY DOAN is a 68 year old M with Pneumonia . Height: 5 feet, 10 inches Weight: 162.907297 kg [place] Body Weight: 79.90 Adjusted Body Weight: 112.34 Dosing Weight: Actual Other Antibiotics: ZOSYN LABS: Last BUN: 24 Last Creatinine: 1.7 Creatinine Clearance: 78 mL/min Last WBC: 8.4 Last Procalcitonin: <0.1 Tmax (past 24 hours): 99.5 Microbiology: BLOOD CULTURE Preliminary NO GROWTH AFTER 1 DAY I/O: 860/2225 Drug Levels: Last Trough level: TRUE TROUGH 20.2 on 12/06/18 at 2230 Last dose given 12/05/18 at 2359 Vancomycin Dosing: Loading Dose: 2000 mg x1 Dosing Weight: Actual Target Trough: 15-20 A: Based on: TRUE TROUGH P: 1. Begin Vancomycin 1500 mg IV q18h 2. Follow up Trough level on 12/08/18 at 1630 3. Pharmacy will continue to monitor, follow and adjust therapy as needed. ERIC KIMBLE RPH, 12/07/18215 Signed: 12/07/18 at 215 by ERIC KIMBLE RPH PHA
[2018-12-07 03:58] VITALS: BP 117/68
[2018-12-07] MEDS: VANCOMYCIN 1.5 GM in IV NORMAL SALINE 500ML BAG 500 ML IV SCH ×2 (06:13→22:37)
[2018-12-07 07:15] VITALS: BP_SYST 141; BP_SYST 154; BP_DIAS 83; BP_DIAS 88
[2018-12-07 07:50] LABS: CALCIUM 8.2 mg/dL (8.5-10.1); CREATININE 1.4 mg/dL (0.7-1.3); GFR 50.1; POTASSIUM 4.1 mmol/L (3.5-5.1)
[2018-12-07] MEDS: POLYETHYLENE GLYCOL 3350 17 GM PACKET. PO SCH (08:00)
[2018-12-07 08:02] LABS: PROTHROMBIN TIME PATIENT 24.1 SEC (11.7-14.0)
[2018-12-07] MEDS: AMMONIUM LACTATE 12% TOPICAL LOTION 226GM BOTTLE. TP SCH ×2 (08:07→21:07)
[2018-12-07] MEDS: ASPIRIN CHEWABLE 81 MG TABLET. PO SCH (08:08)
[2018-12-07] MEDS: DOCUSATE SODIUM 100 MG CAPSULE. PO SCH ×2 (08:08→21:04)
[2018-12-07] MEDS: AMIODARONE HCL 200 MG TABLET. PO SCH (08:08)
[2018-12-07] MEDS: MULTIVITAMIN with MINERAL TABLET. PO SCH (08:08)
[2018-12-07] MEDS: ASCORBIC ACID 500 MG TABLET PO SCH (08:09)
[2018-12-07] MEDS: GLIMEPIRIDE 2 MG TABLET. PO SCH (08:10)
[2018-12-07] MEDS: amLODIPine BESYLATE 5 MG TABLET PO SCH (08:10)
[2018-12-07] MEDS: CARVEDILOL 6.25 MG TABLET. PO SCH (08:11)
[2018-12-07] MEDS: FUROSEMIDE 40 MG/4 ML VIAL. IVP SCH (08:11)
[2018-12-07] MEDS: LACTOBACILLUS RHAMNOSUS GG 1 CAPSULE. PO SCH ×2 (08:12→21:04)
[2018-12-07] MEDS: NYSTATIN TOPICAL POWDER 15GM BOTTLE. TP SCH ×3 (08:12→21:06)
--- NOTE | 2018-12-07 08:33 | PDOC ---
PULMONARY PROGRESS NOTES Subjective PT STILL SOA Vitals Vital Signs Date Time Temp Pulse Resp B/P (MAP) Pulse Ox O2 Delivery O2 Flow Rate FiO2 12/07/18 08:11 98 144/92 12/07/18 07:15 99.0 22 94 Nasal Cannula 4.0 99.0 ROS: No Nausea, No Chest Pain, No Abdominal Pain General: Alert Lungs: Other (decrease bs) Cardiovascular: S1, S2 Abdomen: Other (OBESE) Neuro Exam: Alert Extremities: Other (EDEMA CELLUTITIS) Skin: Warm Labs Laboratory Tests Test 12/05/18 09:15 12/05/18 11:26 12/05/18 16:31 12/05/18 20:46 O2 Saturation 93 % (92-99) Arterial Blood pH 7.41 (7.35-7.45) Arterial Blood pCO2 at Patient Temp 44 mmHg (35-46) Arterial Blood pO2 at Patient Temp 67 mmHg (65-108) Arterial Blood HCO3 27 mmol/L (21-28) Arterial Blood Base Excess 2 mmol/L (-3-3) FiO2 36% Glucose (Fingerstick) 137 mg/dL (70-99) 92 mg/dL (70-99) 114 mg/dL (70-99) Test 12/06/18 07:48 12/06/18 11:29 12/06/18 17:01 12/06/18 19:54 Glucose (Fingerstick) 121 mg/dL (70-99) 121 mg/dL (70-99) 85 mg/dL (70-99) 156 mg/dL (70-99) Test 12/06/18 22:50 12/07/18 07:00 12/07/18 07:43 White Blood Count 7.7 x10^3/uL (4.0-11.0) Red Blood Count 4.06 x10^6/uL (4.30-5.70) Hemoglobin 13.1 g/dL (13.0-17.5) Hematocrit 40.1 % (39.0-53.0) Mean Corpuscular Volume 99 fL (79-100) Mean Corpuscular Hemoglobin 32 pg (25-35) Mean Corpuscular Hemoglobin Concent 33 g/dL (31-37) Red Cell Distribution Width 14.5 % (11.5-14.5) Platelet Count 208 x10^3/uL (140-400) Neutrophils (%) (Auto) 75 % (31-73) Lymphocytes (%) (Auto) 8 % (24-48) Monocytes (%) (Auto) 10 % (0-9) Eosinophils (%) (Auto) 6 % (0-3) Basophils (%) (Auto) 1 % (0-3) Neutrophils # (Auto) 5.8 x10^3uL (1.8-7.7) Lymphocytes # (Auto) 0.6 x10^3/uL (1.0-4.8) Monocytes # (Auto) 0.7 x10^3/uL (0.0-1.1) Eosinophils # (Auto) 0.5 x10^3/uL (0.0-0.7) Basophils # (Auto) 0.1 x10^3/uL (0.0-0.2) Prothrombin Time 24.5 SEC (11.7-14.0) 24.1 SEC (11.7-14.0) Prothromb Time International Ratio 2.2 (0.8-1.1) 2.2 (0.8-1.1) Sodium Level 145 mmol/L (136-145) 142 mmol/L (136-145) Potassium Level 4.0 mmol/L (3.5-5.1) 4.1 mmol/L (3.5-5.1) Chloride Level 105 mmol/L (98-107) 106 mmol/L (98-107) Carbon Dioxide Level 33 mmol/L (21-32) 30 mmol/L (21-32) Anion Gap 7 (6-14) 6 (6-14) Blood Urea Nitrogen 19 mg/dL (8-26) 16 mg/dL (8-26) Creatinine 1.7 mg/dL (0.7-1.3) 1.4 mg/dL (0.7-1.3) Estimated GFR (Cockcroft-Gault) 40.0 50.1 BUN/Creatinine Ratio 11 (6-20) Glucose Level 128 mg/dL (70-99) 119 mg/dL (70-99) Calcium Level 8.5 mg/dL (8.5-10.1) 8.2 mg/dL (8.5-10.1) Magnesium Level 2.1 mg/dL (1.8-2.4) Total Bilirubin 0.6 mg/dL (0.2-1.0) Aspartate Amino Transf (AST/SGOT) 12 U/L (15-37) Alanine Aminotransferase (ALT/SGPT) 14 U/L (16-63) Alkaline Phosphatase 76 U/L (46-116) Total Protein 7.6 g/dL (6.4-8.2) Albumin 2.8 g/dL (3.4-5.0) Albumin/Globulin Ratio 0.6 (1.0-1.7) Vancomycin Level Trough 22.6 mcg/mL (10.0-20.0) Vancomycin Last Dose Date 12/06/18 Vancomycin Last Dose Time 1100 Glucose (Fingerstick) 116 mg/dL (70-99) Laboratory Tests Test 12/06/18 11:29 12/06/18 17:01 12/06/18 19:54 12/06/18 22:50 Glucose (Fingerstick) 121 mg/dL (70-99) 85 mg/dL (70-99) 156 mg/dL (70-99) White Blood Count 7.7 x10^3/uL (4.0-11.0) Red Blood Count 4.06 x10^6/uL (4.30-5.70) Hemoglobin 13.1 g/dL (13.0-17.5) Hematocrit 40.1 % (39.0-53.0) Mean Corpuscular Volume 99 fL (79-100) Mean Corpuscular Hemoglobin 32 pg (25-35) Mean Corpuscular Hemoglobin Concent 33 g/dL (31-37) Red Cell Distribution Width 14.5 % (11.5-14.5) Platelet Count 208 x10^3/uL (140-400) Neutrophils (%) (Auto) 75 % (31-73) Lymphocytes (%) (Auto) 8 % (24-48) Monocytes (%) (Auto) 10 % (0-9) Eosinophils (%) (Auto) 6 % (0-3) Basophils (%) (Auto) 1 % (0-3) Neutrophils # (Auto) 5.8 x10^3uL (1.8-7.7) Lymphocytes # (Auto) 0.6 x10^3/uL (1.0-4.8) Monocytes # (Auto) 0.7 x10^3/uL (0.0-1.1) Eosinophils # (Auto) 0.5 x10^3/uL (0.0-0.7) Basophils # (Auto) 0.1 x10^3/uL (0.0-0.2) Prothrombin Time 24.5 SEC (11.7-14.0) Prothromb Time International Ratio 2.2 (0.8-1.1) Sodium Level 145 mmol/L (136-145) Potassium Level 4.0 mmol/L (3.5-5.1) Chloride Level 105 mmol/L (98-107) Carbon Dioxide Level 33 mmol/L (21-32) Anion Gap 7 (6-14) Blood Urea Nitrogen 19 mg/dL (8-26) Creatinine 1.7 mg/dL (0.7-1.3) Estimated GFR (Cockcroft-Gault) 40.0 BUN/Creatinine Ratio 11 (6-20) Glucose Level 128 mg/dL (70-99) Calcium Level 8.5 mg/dL (8.5-10.1) Magnesium Level 2.1 mg/dL (1.8-2.4) Total Bilirubin 0.6 mg/dL (0.2-1.0) Aspartate Amino Transf (AST/SGOT) 12 U/L (15-37) Alanine Aminotransferase (ALT/SGPT) 14 U/L (16-63) Alkaline Phosphatase 76 U/L (46-116) Total Protein 7.6 g/dL (6.4-8.2) Albumin 2.8 g/dL (3.4-5.0) Albumin/Globulin Ratio 0.6 (1.0-1.7) Vancomycin Level Trough 22.6 mcg/mL (10.0-20.0) Vancomycin Last Dose Date 12/06/18 Vancomycin Last Dose Time 1100 Test 12/07/18 07:00 12/07/18 07:43 Prothrombin Time 24.1 SEC (11.7-14.0) Prothromb Time International Ratio 2.2 (0.8-1.1) Sodium Level 142 mmol/L (136-145) Potassium Level 4.1 mmol/L (3.5-5.1) Chloride Level 106 mmol/L (98-107) Carbon Dioxide Level 30 mmol/L (21-32) Anion Gap 6 (6-14) Blood Urea Nitrogen 16 mg/dL (8-26) Creatinine 1.4 mg/dL (0.7-1.3) Estimated GFR (Cockcroft-Gault) 50.1 Glucose Level 119 mg/dL (70-99) Calcium Level 8.2 mg/dL (8.5-10.1) Glucose (Fingerstick) 116 mg/dL (70-99) Medications Active Scripts Medications Dose Route/Sig Max Daily Dose Days Date Category Saline Mist (Sodium Chloride) 44 Ml [place] 44 Ml NS PRN PRN 12/05/18 Reported Banophen (Diphenhydramine Hcl) 25 Mg Capsule 25 Mg PO Q6HRS 12/05/18 Reported Tylenol (Acetaminophen) 325 Mg Tablet 2 Tab PO PRN Q4HRS 12/05/18 Reported Warfarin Sodium 4 Mg Tablet 4 Mg PO DAILY 12/05/18 Reported Lac-Hydrin Five (Ammonium Lactate) 226 Gm Lotion 226 Gm TP BID 12/05/18 Reported Nystatin 15 Gm Powder 1 [place] TP TID 12/05/18 Reported Carvedilol (Carvedilol) 6.25 Mg Tablet 6.25 Mg PO BIDWMEALS 12/05/18 Reported Torsemide 20 Mg Tablet 1 Tab PO DAILY 12/05/18 Reported Glimepiride 2 Mg Tablet 1 Tab PO DAILY 12/05/18 Reported Gavilax (Polyethylene Glycol 3350) 17 Gm Powd.pack 17 Gm PO DAILY08 12/05/18 Reported Aspirin 81 Mg Tab.chew 1 Tab PO DAILY 12/05/18 Reported Amlodipine Besylate 5 Mg Tablet 5 Mg PO DAILY 12/05/18 Reported Amiodarone Hcl 200 Mg Tablet 1 Tab PO DAILY 12/05/18 Reported Impression . IMPRESSION: 1. Epwaq-nw-rorwksn hypoxemic respiratory failure. 2. Gjusr-ic-fruyfme cor pulmonale. 3. Chronic lower extremity lymphedema with cellulitis. 4. Left lower lobe airspace disease compatible with pneumonia, possibly Gram-negative or Gram-positive. 5. Morbid obesity. 6. Other comorbidities including type 2 diabetes, hypertension, chronic kidney disease, atrial fibrillation and cardiomyopathy status post automatic implantable cardioverter-defibrillator placement. 7. EF 50%, Moderate diastolic dys. Plan . PT UNABLE TO SIT UP IN CHAIR BIPAP QHS I THINK MAIN PROBLEM IS ACUTE COR PULMONALE TREAT FOR PNEUMONIA DIFFICULT SITUATION TO MANAGE REPEAT CXR IN AM 12/05 1. Complex decision making in this patient with multiple comorbidities. We will proceed with treatment for Gram-negative and Gram-positive pneumonia. 2. Diurese. 3. At bedtime BiPAP. 4. Oxygen supplementation throughout the day. 5. Follow clinical course and make further adjustments in his medications. 6. Continue anticoagulation. 7. Monitor blood sugars. 8. Follow up Cardiology input. D/W PEGGY PERRY MD December 07, 2018 08:33
[2018-12-07 11:02] VITALS: BP 131/74
--- NOTE | 2018-12-07 13:16 | PDOC ---
RICH RUBALCAVA DIRECTOR VISUAL 12/07/18 1316: CARDIO Progress Notes Date and Time Date of Service 12/07/2018 Time of Evaluation 1250 Subjective Subjective: No Chest Pain, No shortness of breath, No Palpitations, Other (does not want to follow up, currently nude and does not wear his clothes) Vitals Vitals Vital Signs Date Time Temp Pulse Resp B/P (MAP) Pulse Ox O2 Delivery O2 Flow Rate FiO2 12/07/18 11:02 98.9 86 24 131/74 (93) 96 Nasal Cannula 4.0 98.9 Weight Weight [ ] Input and Output Intake and Output Intake and Output 12/07/18 07:00 Intake Total 1100 ml Output Total 4885 ml Balance -3785 ml Intake Oral 1100 ml Output Urine Total 4775 ml Stool Total 110 ml # Bowel Movements 5 Laboratory Labs Laboratory Tests Test 12/06/18 17:01 12/06/18 19:54 12/06/18 22:50 12/07/18 07:00 Glucose (Fingerstick) 85 mg/dL (70-99) 156 mg/dL (70-99) White Blood Count 7.7 x10^3/uL (4.0-11.0) Red Blood Count 4.06 x10^6/uL (4.30-5.70) Hemoglobin 13.1 g/dL (13.0-17.5) Hematocrit 40.1 % (39.0-53.0) Mean Corpuscular Volume 99 fL (79-100) Mean Corpuscular Hemoglobin 32 pg (25-35) Mean Corpuscular Hemoglobin Concent 33 g/dL (31-37) Red Cell Distribution Width 14.5 % (11.5-14.5) Platelet Count 208 x10^3/uL (140-400) Neutrophils (%) (Auto) 75 % (31-73) Lymphocytes (%) (Auto) 8 % (24-48) Monocytes (%) (Auto) 10 % (0-9) Eosinophils (%) (Auto) 6 % (0-3) Basophils (%) (Auto) 1 % (0-3) Neutrophils # (Auto) 5.8 x10^3uL (1.8-7.7) Lymphocytes # (Auto) 0.6 x10^3/uL (1.0-4.8) Monocytes # (Auto) 0.7 x10^3/uL (0.0-1.1) Eosinophils # (Auto) 0.5 x10^3/uL (0.0-0.7) Basophils # (Auto) 0.1 x10^3/uL (0.0-0.2) Prothrombin Time 24.5 SEC (11.7-14.0) 24.1 SEC (11.7-14.0) Prothromb Time International Ratio 2.2 (0.8-1.1) 2.2 (0.8-1.1) Sodium Level 145 mmol/L (136-145) 142 mmol/L (136-145) Potassium Level 4.0 mmol/L (3.5-5.1) 4.1 mmol/L (3.5-5.1) Chloride Level 105 mmol/L (98-107) 106 mmol/L (98-107) Carbon Dioxide Level 33 mmol/L (21-32) 30 mmol/L (21-32) Anion Gap 7 (6-14) 6 (6-14) Blood Urea Nitrogen 19 mg/dL (8-26) 16 mg/dL (8-26) Creatinine 1.7 mg/dL (0.7-1.3) 1.4 mg/dL (0.7-1.3) Estimated GFR (Cockcroft-Gault) 40.0 50.1 BUN/Creatinine Ratio 11 (6-20) Glucose Level 128 mg/dL (70-99) 119 mg/dL (70-99) Calcium Level 8.5 mg/dL (8.5-10.1) 8.2 mg/dL (8.5-10.1) Magnesium Level 2.1 mg/dL (1.8-2.4) Total Bilirubin 0.6 mg/dL (0.2-1.0) Aspartate Amino Transf (AST/SGOT) 12 U/L (15-37) Alanine Aminotransferase (ALT/SGPT) 14 U/L (16-63) Alkaline Phosphatase 76 U/L (46-116) Total Protein 7.6 g/dL (6.4-8.2) Albumin 2.8 g/dL (3.4-5.0) Albumin/Globulin Ratio 0.6 (1.0-1.7) Vancomycin Level Trough 22.6 mcg/mL (10.0-20.0) Vancomycin Last Dose Date 12/06/18 Vancomycin Last Dose Time 1100 Test 12/07/18 07:43 12/07/18 11:10 Glucose (Fingerstick) 116 mg/dL (70-99) 122 mg/dL (70-99) Microbiology Micro Microbiology 12/05/18 Blood Culture - Preliminary, Resulted NO GROWTH AFTER 2 DAYS Physical Exam HEENT: Neck Supple W Full Motion Chest: Symmetric LUNGS: Other (diminished) Heart: irregularly irregular (AFIB) Abdomen: Soft N/T, Other (obese) Extremities: Other (2-3+ bilateral LE pitting edema) Neurology: alert, oriented, follow commands Assessment Assessment 1. Acute respiratory failure with PNA/CHF 2. Acute on chronic diastolic CHF/cor pulmonale. EF 50% compensated 3. AICD in situ: medtronic, normal functioning device. 100% AFIB>1 yr mode changed to DDIR with 3.4 battery life. 4. Chronic lymphedema 5. Morbid obesity 6. Chronic AFIB: INR 2.2 Recommendations 1. Medical therapy only, pt has refused any invasive procedures. and was inappropriate to staff. Discussed with pt and compliance as well. 2. DC amiodarone with failed therapy. Warfarin for stroke prevention. Inter mittent burst, will change coreg to metoprolol at 50 mg PO bid for better control. and uptitrate kajal BP trend. 3. Continue lasix and change to PO after tomorrow and amlodipine. 4. Follow up as an outpt if pt complies. 5. Bipap PRN FADY DUMONT MD 12/07/18 1713: CARDIO Progress Notes Plan Plan Pt. seen and examined. Agree with above [facility] note. No significant change room attendant the last 2 days. Still has poor judgement regarding his issues. Continue medical therapy for now. Rest of plan as above. RICH RUBALCAVA APRN December 07, 2018 13:16 FADY DUMONT MD December 07, 2018 17:13
--- NOTE | 2018-12-07 14:24 | NUR ---
SW faxed updates to [facility]. Will continue to follow.
--- NOTE | 2018-12-07 15:04 | PN ---
DATE: 12/07/2018 SUBJECTIVE: The patient is resting slightly propped up in bed, eating his breakfast comfortably. He refused to go on the CPAP machine in the hospital, although he is using his CPAP machine at the assisted. OBJECTIVE: GENERAL: When I examined him, he looked well and was clearly in no respiratory distress. There is no pallor, jaundice or cyanosis. No lymphadenopathy. No thyromegaly. His bilateral lower extremity edema is slightly better. VITAL SIGNS: His heart rate was 98, blood pressure was 144/92, temperature was 99, respiratory rate was 22 and oxygen saturation was 94% on 4 liters of oxygen by nasal cannula. HEAD, EYES, EARS, NOSE AND THROAT: Showed normocephalic, atraumatic. NECK: Supple. HEART: Showed normal first and second heart sounds. No gallop, rub or murmur. CHEST: Shows central trachea, equal bilateral chest expansion, air entry, vesicular sounds with very few scattered rhonchi and crepitation, mostly in the left side posteriorly. ABDOMEN: Distended, soft, nontender. NEUROLOGIC: He is awake, alert, responding appropriately. All cranial nerves intact. He moves extremities without difficulty, although he is mostly bedbound, chair bound. His intertriginous candidiasis that was very extensive for has largely subsided now mostly in the groin areas. His intake was 860, output was 2225. LABORATORY DATA: His lab work this morning showed his white cell count to be 7700, hemoglobin 13, hematocrit 40, MCV 99 and platelet count 208,000. His chemistry this morning showed a serum sodium 142, potassium 4.1, chloride 106, bicarbonate 30, anion gap of 6, BUN 16, creatinine 1.4, estimated GFR was 50 mL per minute, his glucose was 119, calcium was 8.2. His prothrombin time was 24.1, INR of 2.2. His vancomycin trough level was 22.6 and his nasal screen for MRSA with PCR was negative. His blood cultures are so far negative. ASSESSMENT: 1. Acute on chronic diastolic congestive heart failure. 2. Acute on chronic hypoxic respiratory failure. 3. Left lower lobe pneumonia. 4. Morbid obesity, obstructive sleep apnea, on CPAP. 5. Type 2 diabetes mellitus. 6. Hypertension. 7. Chronic atrial fibrillation, rate controlled, well anticoagulated. 8. Chronic kidney disease. 9. History of cerebrovascular accident. 10. He has cardiomyopathy status post AICD placement. PLAN: My plan is to continue with the IV antibiotic. Continue with IV Lasix. Continue to monitor his blood sugar and adjust insulin as needed. Continue with amiodarone and Coumadin to control the heart rate and for stroke prevention. We will repeat his chest x-ray tomorrow and I will probably discontinue his vancomycin given that his cultures were negative. RENEA RAGLAND MD DR: ANGEL/nila JOB#: [id number] / [id number]
[2018-12-07 15:06] VITALS: BP 138/72
[2018-12-07] MEDS: WARFARIN 4 MG TABLET. PO SCH (16:22)
--- NOTE | 2018-12-07 19:20 | NUR ---
Nursing note: Pt refusing to turn with or with assistance. Refusing to be repositioned in bed. Pt educated on importance of maintaining skin intergrity, risk for pressure ulcers. 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 Pt has a flat affect. Pt appears to be grumpy, but states he is only joking. Will relay to oncoming staff.
[2018-12-07 19:40] VITALS: BP 137/80
[2018-12-07] MEDS: METOPROLOL TART IMMED RELEASE 50 MG TABLET. PO SCH (21:05)
[2018-12-07 23:16] VITALS: BP 139/77
[2018-12-08] MEDS: PIPERACILLIN/TAZOBACTAM 3.375 GM in IV NORMAL SALINE 50ML 50 ML IV SCH ×3 (00:40→13:06)
[2018-12-08 03:50] VITALS: BP 87/69
[2018-12-08 07:15] VITALS: BP 110/71
[2018-12-08] MEDS: POLYETHYLENE GLYCOL 3350 17 GM PACKET. PO SCH (08:00)
--- NOTE | 2018-12-08 08:17 | RAD ---
Portable chest, 12/08/2018: HISTORY: Pneumonia Comparison is made to a study from 12/05/2018. A left-sided transvenous pacemaker remains in place with 2 leads extending into the right heart. The heart is moderately enlarged. There is calcific plaquing the aorta. There is unchanged mild interstitial prominence in the lungs. Obscuration of the left lateral costophrenic angle is probably related to a prominent epicardial fat pad in patient rotation. Infiltrate or pleural fluid in this region cannot be excluded. There is no evidence of pneumothorax. IMPRESSION: 1. Cardiomegaly. 2. Ongoing bilateral interstitial opacities suggesting low-grade interstitial edema versus fibrosis. Electronically signed by: Jorge Park MD (12/08/2018 8:15 AM) [facility]
[2018-12-08] MEDS: MULTIVITAMIN with MINERAL TABLET. PO SCH (09:00)
[2018-12-08] MEDS: ASCORBIC ACID 500 MG TABLET PO SCH (09:00)
[2018-12-08] MEDS: DOCUSATE SODIUM 100 MG CAPSULE. PO SCH (09:00)
[2018-12-08] MEDS: LACTOBACILLUS RHAMNOSUS GG 1 CAPSULE. PO SCH (09:11)
[2018-12-08] MEDS: METOPROLOL TART IMMED RELEASE 50 MG TABLET. PO SCH (09:12)
[2018-12-08] MEDS: ASPIRIN CHEWABLE 81 MG TABLET. PO SCH (09:13)
[2018-12-08] MEDS: GLIMEPIRIDE 2 MG TABLET. PO SCH (09:13)
[2018-12-08] MEDS: amLODIPine BESYLATE 5 MG TABLET PO SCH (09:14)
[2018-12-08] MEDS: FUROSEMIDE 40 MG/4 ML VIAL. IVP SCH (09:14)
[2018-12-08] MEDS: NYSTATIN TOPICAL POWDER 15GM BOTTLE. TP SCH ×2 (09:15→13:07)
[2018-12-08] MEDS: AMMONIUM LACTATE 12% TOPICAL LOTION 226GM BOTTLE. TP SCH (09:15)
[2018-12-08 09:36] LABS: PROTHROMBIN TIME PATIENT 22.4 SEC (11.7-14.0)
--- NOTE | 2018-12-08 10:55 | PDOC ---
PULMONARY PROGRESS NOTES Subjective no soa Vitals Vital Signs Date Time Temp Pulse Resp B/P (MAP) Pulse Ox O2 Delivery O2 Flow Rate FiO2 12/08/18 09:14 80 110/71 12/08/18 08:30 Nasal Cannula 4.0 12/08/18 07:15 98.5 20 93 98.5 ROS: No Nausea, No Chest Pain, No Abdominal Pain General: Alert Lungs: Other (decrease bs) Cardiovascular: S1, S2 Abdomen: Other (OBESE) Neuro Exam: Alert Extremities: Other (EDEMA CELLUTITIS) Skin: Warm Labs Laboratory Tests Test 12/06/18 11:29 12/06/18 17:01 12/06/18 19:54 12/06/18 22:50 Glucose (Fingerstick) 121 mg/dL (70-99) 85 mg/dL (70-99) 156 mg/dL (70-99) White Blood Count 7.7 x10^3/uL (4.0-11.0) Red Blood Count 4.06 x10^6/uL (4.30-5.70) Hemoglobin 13.1 g/dL (13.0-17.5) Hematocrit 40.1 % (39.0-53.0) Mean Corpuscular Volume 99 fL (79-100) Mean Corpuscular Hemoglobin 32 pg (25-35) Mean Corpuscular Hemoglobin Concent 33 g/dL (31-37) Red Cell Distribution Width 14.5 % (11.5-14.5) Platelet Count 208 x10^3/uL (140-400) Neutrophils (%) (Auto) 75 % (31-73) Lymphocytes (%) (Auto) 8 % (24-48) Monocytes (%) (Auto) 10 % (0-9) Eosinophils (%) (Auto) 6 % (0-3) Basophils (%) (Auto) 1 % (0-3) Neutrophils # (Auto) 5.8 x10^3uL (1.8-7.7) Lymphocytes # (Auto) 0.6 x10^3/uL (1.0-4.8) Monocytes # (Auto) 0.7 x10^3/uL (0.0-1.1) Eosinophils # (Auto) 0.5 x10^3/uL (0.0-0.7) Basophils # (Auto) 0.1 x10^3/uL (0.0-0.2) Prothrombin Time 24.5 SEC (11.7-14.0) Prothromb Time International Ratio 2.2 (0.8-1.1) Sodium Level 145 mmol/L (136-145) Potassium Level 4.0 mmol/L (3.5-5.1) Chloride Level 105 mmol/L (98-107) Carbon Dioxide Level 33 mmol/L (21-32) Anion Gap 7 (6-14) Blood Urea Nitrogen 19 mg/dL (8-26) Creatinine 1.7 mg/dL (0.7-1.3) Estimated GFR (Cockcroft-Gault) 40.0 BUN/Creatinine Ratio 11 (6-20) Glucose Level 128 mg/dL (70-99) Calcium Level 8.5 mg/dL (8.5-10.1) Magnesium Level 2.1 mg/dL (1.8-2.4) Total Bilirubin 0.6 mg/dL (0.2-1.0) Aspartate Amino Transf (AST/SGOT) 12 U/L (15-37) Alanine Aminotransferase (ALT/SGPT) 14 U/L (16-63) Alkaline Phosphatase 76 U/L (46-116) Total Protein 7.6 g/dL (6.4-8.2) Albumin 2.8 g/dL (3.4-5.0) Albumin/Globulin Ratio 0.6 (1.0-1.7) Vancomycin Level Trough 22.6 mcg/mL (10.0-20.0) Vancomycin Last Dose Date 12/06/18 Vancomycin Last Dose Time 1100 Test 12/07/18 07:00 12/07/18 07:43 12/07/18 11:10 12/07/18 16:58 Prothrombin Time 24.1 SEC (11.7-14.0) Prothromb Time International Ratio 2.2 (0.8-1.1) Sodium Level 142 mmol/L (136-145) Potassium Level 4.1 mmol/L (3.5-5.1) Chloride Level 106 mmol/L (98-107) Carbon Dioxide Level 30 mmol/L (21-32) Anion Gap 6 (6-14) Blood Urea Nitrogen 16 mg/dL (8-26) Creatinine 1.4 mg/dL (0.7-1.3) Estimated GFR (Cockcroft-Gault) 50.1 Glucose Level 119 mg/dL (70-99) Calcium Level 8.2 mg/dL (8.5-10.1) Glucose (Fingerstick) 116 mg/dL (70-99) 122 mg/dL (70-99) 80 mg/dL (70-99) Test 12/07/18 21:02 12/08/18 07:35 12/08/18 08:55 Glucose (Fingerstick) 98 mg/dL (70-99) 110 mg/dL (70-99) Prothrombin Time 22.4 SEC (11.7-14.0) Prothromb Time International Ratio 2.0 (0.8-1.1) Laboratory Tests Test 12/07/18 11:10 12/07/18 16:58 12/07/18 21:02 12/08/18 07:35 Glucose (Fingerstick) 122 mg/dL (70-99) 80 mg/dL (70-99) 98 mg/dL (70-99) 110 mg/dL (70-99) Test 12/08/18 08:55 Prothrombin Time 22.4 SEC (11.7-14.0) Prothromb Time International Ratio 2.0 (0.8-1.1) Medications Active Scripts Medications Dose Route/Sig Max Daily Dose Days Date Category Saline Mist (Sodium Chloride) 44 Ml [place] 44 Ml NS PRN PRN 12/05/18 Reported Banophen (Diphenhydramine Hcl) 25 Mg Capsule 25 Mg PO Q6HRS 12/05/18 Reported Tylenol (Acetaminophen) 325 Mg Tablet 2 Tab PO PRN Q4HRS 12/05/18 Reported Warfarin Sodium 4 Mg Tablet 4 Mg PO DAILY 12/05/18 Reported Lac-Hydrin Five (Ammonium Lactate) 226 Gm Lotion 226 Gm TP BID 12/05/18 Reported Nystatin 15 Gm Powder 1 Yamila TP TID 12/05/18 Reported Carvedilol (Carvedilol) 6.25 Mg Tablet 6.25 Mg PO BIDWMEALS 12/05/18 Reported Torsemide 20 Mg Tablet 1 Tab PO DAILY 12/05/18 Reported Glimepiride 2 Mg Tablet 1 Tab PO DAILY 12/05/18 Reported Gavilax (Polyethylene Glycol 3350) 17 Gm Powd.pack 17 Gm PO DAILY08 12/05/18 Reported Aspirin 81 Mg Tab.chew 1 Tab PO DAILY 12/05/18 Reported Amlodipine Besylate 5 Mg Tablet 5 Mg PO DAILY 12/05/18 Reported Amiodarone Hcl 200 Mg Tablet 1 Tab PO DAILY 12/05/18 Reported Impression . IMPRESSION: 1. Ungvu-xe-tmzpxnz hypoxemic respiratory failure. 2. Mfsnw-lz-rbpfsil cor pulmonale. 3. Chronic lower extremity lymphedema with cellulitis. 4. Left lower lobe airspace disease compatible with pneumonia, possibly Gram-negative or Gram-positive. 5. Morbid obesity. 6. Other comorbidities including type 2 diabetes, hypertension, chronic kidney disease, atrial fibrillation and cardiomyopathy status post automatic implantable cardioverter-defibrillator placement. 7. EF 50%, Moderate diastolic dys. Plan . PT UNABLE TO SIT UP IN CHAIR BIPAP QHS I THINK MAIN PROBLEM IS ACUTE COR PULMONALE TREAT FOR PNEUMONIA DIFFICULT SITUATION TO MANAGE REPEAT CXR UNCHANGED, CLINICALLY IMPROVED 12/05 1. Complex decision making in this patient with multiple comorbidities. We will proceed with treatment for Gram-negative and Gram-positive pneumonia. 2. Diurese. 3. At bedtime BiPAP. 4. Oxygen supplementation throughout the day. 5. Follow clinical course and make further adjustments in his medications. 6. Continue anticoagulation. 7. Monitor blood sugars. 8. Follow up Cardiology input. OK WITH DC TO SKILL D/W PEGGY PERRY MD December 08, 2018 10:55
[2018-12-08 11:02] VITALS: BP 128/74
[2018-12-08 12:16] LABS: HEMOGLOBIN A1C 5.5 % (4.8-5.6)
[2018-12-08 15:17] VITALS: BP 119/71
[2018-12-08] MEDS ORDERED: AMOX1TAB61 PO (16:10)
[2018-12-08] MEDS ORDERED: LACT100C2 PO (16:10)
--- NOTE | 2018-12-08 16:13 | SNU/HH DC ---
DISCHARGE ORDERS DISCHARGE INFORMATION: DISCHARGE DATE: December 08, 2018 FINAL DIAGNOSIS Problems Medical Problems: (1) Acute and chronic respiratory failure Status: Acute (2) Congestive heart failure Status: Acute CONDITION ON DISCHARGE: Stable CODE STATUS: Code Status: Full PRISON: SNF STAY <30 DAYS: Yes POST DISCHARGE ORDERS: ACTIVITY ORDERS: Resume previous activity DIET AFTER DISCHARGE: ADA CHECKS AFTER DISCHARGE: CHECKS AFTER DISCHARGE: Check blood sugar, ac/hs TREATMENT/EQUIPMENT ORDERS: ADAPTIVE EQUIPMENT NEEDED: Wheelchair RESPIRATORY EQUIPMENT NEEDED: Oxygen, CPAP Physical Therapy For: Evalulation/Treatment Occupational Therapy For: Evaluation/Treatment DISCHARGE MEDICATIONS: Home Meds Active Scripts Lactobacillus Acidophilus (Acidophilus) 100 Mg Capsule, 100 MG PO BID for c diff for 10 Days, #20 CAP Prov:RENEA RAGLAND MD 12/08/18 Amoxicillin/Potassium Clav (AUGMENTIN 875-125 TABLET) 1 Each Tablet, 1 TAB PO BID for pneumonia for 7 Days, #14 TAB Prov:RENEA RAGLAND MD 12/08/18 Reported Medications Sodium Chloride (Saline Mist) 44 Ml [place], 44 ML NS PRN PRN for dry nose, SPRAY 12/05/18 Diphenhydramine Hcl (BANOPHEN) 25 Mg Capsule, 25 MG PO Q6HRS PRN for ITCHING, CAP 12/05/18 Acetaminophen (TYLENOL) 325 Mg Tablet, 2 TAB PO PRN Q4HRS for pain, #30 TAB 12/05/18 Warfarin Sodium (WARFARIN SODIUM) 4 Mg Tablet, 4 MG PO DAILY for anticoagulation, #30 TAB 12/05/18 Ammonium Lactate (Lac-Hydrin Five) 226 Gm Lotion, 226 GM TP BID for infected sites, MISC 12/05/18 Nystatin (NYSTATIN) 15 Gm Powder, 1 DAVON TP TID for infected sites, #1 BOTTLE 12/05/18 Carvedilol (CARVEDILOL ) 6.25 Mg Tablet, 6.25 MG PO BIDWMEALS for CARDIAC, TAB 12/05/18 Torsemide (TORSEMIDE) 20 Mg Tablet, 1 TAB PO DAILY for fluid retention, #90 TAB 1 Refill 12/05/18 Glimepiride (GLIMEPIRIDE) 2 Mg Tablet, 1 TAB PO DAILY for blood sugars, #30 TAB 5 Refills 12/05/18 Polyethylene Glycol 3350 (GAVILAX) 17 Gm Powd.pack, 17 GM PO DAILY08 for constipation, PKT 12/05/18 Aspirin (ASPIRIN) 81 Mg Tab.chew, 1 TAB PO DAILY for antiplatelet, #30 TAB 3 Refills 12/05/18 Amlodipine Besylate (AMLODIPINE BESYLATE) 5 Mg Tablet, 5 MG PO DAILY for blood pressure, TAB 12/05/18 Amiodarone Hcl (AMIODARONE HCL) 200 Mg Tablet, 1 TAB PO DAILY for heart , #90 TAB 1 Refill 12/05/18 RENEA RAGLAND MD December 08, 2018 16:13
--- NOTE | 2018-12-08 16:24 | NUR ---
KRISTI following pt. KRISTI phoned and faxed orders to [facility]. 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 Packet on chart and BASSAM RN.
[2018-12-08] MEDS: WARFARIN 4 MG TABLET. PO SCH (16:55)
--- NOTE | 2018-12-08 17:24 | NUR ---
Discharge Note: BRITTANY DOAN [address] Discharge instructions and discharge home medications reviewed with Other facility Jerad Nurse and a copy given. All questions have been answered and understanding verbalized. The following instructions and handouts were given: COPD exac, Pneumonia Discontinued lines and drains: Peripheral IV intact. Patient discharged to [facility] with wheelchair van personnel via Wheelchair
--- NOTE | 2018-12-08 18:42 | DS ---
DATE OF DISCHARGE: 12/08/2018 HOSPITAL COURSE: The patient is a 68-year-old male patient, a resident of [facility] [place] in [place], who was admitted with increasing shortness of breath, worsening swelling of both legs that are weeping on both sides. The patient also has morbid obesity and obstructive sleep apnea and he was also hypoxic with oxygen saturation about 80%. He was extensively investigated and has had chest x-ray, which showed he has mild to moderate left mid to lower lung airspace disease and mild pulmonary vascular congestion. He was admitted with acute on chronic congestive heart failure, COPD exacerbation and also severe intertriginous candidiasis and urinary incontinence making that worse. He is diabetic and he is very noncompliant with all his medication. We did start him on IV antibiotic in the form of Zosyn and vancomycin and he did actually well with that. He was seen in consultation by the skip locator and the store associate and as he remained stable, afebrile, and his swelling has largely subsided and the indwelling Jacome catheter held with the urinary incontinence and the intertriginous candidiasis, a decision was made to discharge him back to [facility] [place] in [place] to continue oral antibiotic in the form of Augmentin, will keep the Jacome catheter for at least a week until he finish his antibiotic. I also added lactobacillus to continue with all other medications. PHYSICAL EXAMINATION: GENERAL: When I saw him this afternoon, he looked well and was clearly in no apparent respiratory distress. No pallor or jaundice, cyanosis or thyromegaly. No jugular venous distension. He has bilateral lower edema. VITAL SIGNS: His heart rate was 72, blood pressure was 119/71, temperature was 98.4, respiratory rate was 22 and oxygen saturation was 95% on 4 liters of oxygen. HEAD, EYES, EARS, NOSE AND THROAT: Normocephalic, atraumatic. NECK: Supple. HEART: Showed normal first and second heart sounds with no gallop, rub or murmur. CHEST: Clear to auscultation. No crepitation or rhonchi. ABDOMEN: Distended, soft, nontender. NEUROLOGIC: He is awake, alert. All his cranial nerves are intact. He moves extremities without difficulty; however, he is mostly bedbound and chair bound. His intake over the last 24 hours was 1100, output was 4885. LABORATORY DATA: His lab work this morning showed a serum sodium of 142, potassium 4.1, chloride 106, bicarbonate 30, anion gap of 6, BUN 16, creatinine 1.4, estimated GFR was 50 mL per minute, his glucose 119, calcium was 8.2. His white cell count was 7700, hemoglobin 13, hematocrit 40, MCV 99 and platelet count 108. DISCHARGE MEDICATIONS: He was discharged back to [facility] [place] in [place] to continue on amoxicillin/clavulanic acid 875 mg twice a day for 7 days, lactobacillus acidophilus 1 capsule twice a day for 10 days. He should continue on acetaminophen 650 mg every 4 hours, amiodarone 200 mg once a day, amlodipine 5 mg daily, ammonium lactate for Lac-Hydrin apply topically twice a day, aspirin 81 mg once a day, carvedilol 6.25 mg twice a day, diphenhydramine 25 mg every 6 hours, glimepiride 2 mg once a day, nystatin powder applied topically 3 times a day, polyethylene glycol 17 grams as needed, sodium chloride saline spray one spray to each nostril twice a day, torsemide 20 mg daily and warfarin 4 mg once a day. FINAL DISCHARGE DIAGNOSES: 1. Acute on chronic diastolic congestive heart failure. 2. Acute on chronic hypoxic respiratory failure. 3. Left lower lobe pneumonia. 4. Chronic obstructive pulmonary disease exacerbation. 5. Morbid obesity, obstructive sleep apnea, on CPAP. 6. Type 2 diabetes mellitus, reasonably controlled. 7. Hypertension. 8. Chronic atrial fibrillation, rate controlled, well anticoagulated. 9. Chronic kidney disease. 10. History of cerebrovascular accident. 11. He has cardiomyopathy, status post automatic implantable cardioverter-defibrillator placement. 12. Severe intertriginous candidiasis, much improved. RENEA RAGLAND MD DR: ANGEL/nila JOB#: [id number] / [id number]
[2018-12-09] MEDS ORDERED: FUROSEMIDE 40 MG TABLET. PO SCH (09:00)
== END 2018-12-08 17:25 | disposition home or self-care (01) | DRG 871 ==
LOC: ER 23:52 → 6 SOUTH 12-05 02:18
PROVIDERS: ADMIT Internal Medicine; ATTEND Internal Medicine
DX: A41.9 Sepsis, unspecified organism (principal); J15.6 Pneumonia due to other Gram-negative bacteria; J96.21 Acute and chronic respiratory failure with hypoxia; I50.33 Acute on chronic diastolic (congestive) heart failure; J96.22 Acute and chronic respiratory failure with hypercapnia; J18.1 Lobar pneumonia, unspecified organism; I13.0 Hypertensive heart and chronic kidney disease with heart failure and stage 1 through stage 4 chronic kidney disease, or unspecified chronic kidney disease; J44.1 Chronic obstructive pulmonary disease with (acute) exacerbation; L03.90 Cellulitis, unspecified; J44.0 Chronic obstructive pulmonary disease with (acute) lower respiratory infection; I42.9 Cardiomyopathy, unspecified; Z68.41 Body mass index [BMI] 40.0-44.9, adult; N18.9 Chronic kidney disease, unspecified; I27.81 Cor pulmonale (chronic); E11.22 Type 2 diabetes mellitus with diabetic chronic kidney disease; I48.2 Chronic atrial fibrillation; G47.33 Obstructive sleep apnea (adult) (pediatric); E66.01 Morbid (severe) obesity due to excess calories; B37.2 Candidiasis of skin and nail; I87.2 Venous insufficiency (chronic) (peripheral); Z86.73 Personal history of transient ischemic attack (TIA), and cerebral infarction without residual deficits; Z82.49 Family history of ischemic heart disease and other diseases of the circulatory system; Z95.810 Presence of automatic (implantable) cardiac defibrillator; Z91.19 Patient's noncompliance with other medical treatment and regimen; Z91.14 Patient's other noncompliance with medication regimen
CPT/HCPCS: 36415; 36600; 71045; 80048; 80053; 80202; 82805; 82962; 83036; 83605; 83735; 83880; 84145; 84484; 85025; 85610; 86140; 87040; 87641; 93005; 93306; 93970; 94640; 96365; 96366; 96375; J1940; J2543; J3370; J7040; J7620; 99285-25

== ENCOUNTER 2020-02-06 18:26 | Inpatient (IN) | payer MEDICARE, MEDICAID ==
[~2020-02-06] VITALS: Ht 177.8 cm; Wt 137.0 kg
[~2020-02-06 18:26] MED LIST: ACET325T9 PO; AMIO200T4 PO; AMLO5TAB10 PO; AMMO226L TP; AMOX1TAB61 PO; ASPI-630 PO; CARV6.2511 PO; DIPH25CA20 PO; GLIM2TAB7 PO; LACT100C2 PO; NYST15PO9 TP; POLY17PO PO; SODI45SP4 NS; TORS20TA2 PO; WARF4TAB64 PO
[2020-02-06] MEDS ORDERED: ACETAMINOPHEN 500 MG TABLET PO ONE (19:00)
[2020-02-06 19:19] LABS: BASO # 0.1 x10^3/uL (0.0-0.2); BASO % 1 % (0-3); EOS # 0.2 x10^3/uL (0.0-0.7); EOS % 2 % (0-3); HEMATOCRIT 33.4 % (39.0-53.0); HEMOGLOBIN 11.6 g/dL (13.0-17.5); LYMPH # 0.6 x10^3/uL (1.0-4.8); LYMPH % 7 % (24-48); MEAN CORPUSCULAR HEMOGLOBIN 34 pg (25-35); MEAN CORPUSCULAR HGB CONC 35 g/dL (31-37); MEAN CORPUSCULAR VOLUME 98 fL (79-100); MONO % 11 % (0-9); NEUT # 7.5 x10^3/uL (1.8-7.7); NEUT % 80 % (31-73); PLATELET COUNT 189 x10^3/uL (140-400); RED BLOOD COUNT 3.39 x10^6/uL (4.30-5.70); RED CELL DISTRIBUTION WIDTH 15.5 % (11.5-14.5); WHITE BLOOD COUNT 9.4 x10^3/uL (4.0-11.0)
[2020-02-06 19:26] LABS: CALCIUM 8.2 mg/dL (8.5-10.1); CREATININE 1.7 mg/dL (0.7-1.3); GFR 39.9; POTASSIUM 3.9 mmol/L (3.5-5.1)
[2020-02-06] MEDS ORDERED: MORPHINE SULFATE 2 MG/ML VIAL. IM ONE (19:30)
[2020-02-06 19:39] LABS: ALBUMIN 2.6 g/dL (3.4-5.0); ALBUMIN/GLOBULIN RATIO 0.6 (1.0-1.7); TOTAL BILIRUBIN 1.1 mg/dL (0.2-1.0); TOTAL PROTEIN 7.3 g/dL (6.4-8.2)
[2020-02-06] MEDS ORDERED: MORPHINE SULFATE 2 MG/ML VIAL. IV ONE (19:45)
--- NOTE | 2020-02-06 20:50 | RAD ---
Exam performed: One view chest HISTORY: Shortness of breath. DATE OF SERVICE: 02/08/2020. Comparison made to single view chest from 12/08/2018. FINDINGS: Cardiomegaly. Increasing confluent airspace opacities are seen throughout both lungs. There is probable left pleural effusion. There is a bipolar pacemaker in place. IMPRESSION: Cardiomegaly with worsening bilateral airspace infiltrates Electronically signed by: Marnie Mendez MD (02/06/2020 8:48 PM) [facility]
[2020-02-06 21:45] VITALS: BP 115/58
--- NOTE | 2020-02-06 21:45 | NUR ---
Received pt from ED and transferred to bed with assist x3 with sliding sheet. Pt moaned when repositioned however not responding when attempting to ask questions or after repositioning in bed. Pt with vitals within normal limits while this nurse in the room. However after leaving room noted that pt's O2 saturation was 77% on NRB at 12L. Entered back in the room and increased NRB to 15L and O2 saturation increased to 85%. Called RT and informed of pt's status and spoke of getting orders for ABG however RT called back and states orders were there however not entered correctly and she will be up to get ABG.
[2020-02-06] MEDS ORDERED: VANCOMYCIN 1 GM in IV NORMAL SALINE 250ML 250 ML IV SCH (22:15)
[2020-02-06] MEDS ORDERED: AZITHRMYCN 500MG IVPB FOR OMNI 250 ML IV ONE (22:30)
[2020-02-06 22:35] LABS: BASE EXCESS COOX 4 mmol/L (-3-3); HCO3 COOX 33 mmol/L (21-28); METHEMOGLOBIN 0.4 % (0.0-1.9); OXYHEMOGLOBIN 91.1 %; PCO2 COOX 71 mmHg (35-46); PO2 COOX 83 mmHg (65-108); SAT O2 COOX 93 % (92-99)
--- NOTE | 2020-02-06 22:36 | PHYS DOC ---
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 Patient being sent for evaluation of shortness of breath and fever. Upon EMS arrival patient was 70% on 5 L nasal cannula. EMS placeD patient on a 12l nonrebreather and on arrival his O2 sat have been 95% or greater. Patient states he does not know why he is here. He actually denies any shortness of breath. Patient is afebrile here with a temperature of 98 8.4. He is tachypneic with a respiratory rate of 27 and his blood pressure is within normal limits. + Covid patients at his NH. Review of Systems: Review of Systems: Constitutional: positive fever Eyes: Denies change in visual acuity. [] HENT: Denies nasal congestion or sore throat. [] Respiratory: positive shortness of breath history, positive hypoxia Cardiovascular: Denies chest pain or edema. [] GI: Denies abdominal pain, nausea, vomiting, bloody stools or diarrhea. [] : Denies dysuria. [] Musculoskeletal: Denies back pain or joint pain. [] Integument: Denies rash. [] Neurologic: Denies headache, focal weakness or sensory changes. [] Endocrine: Denies polyuria or polydipsia. [] Lymphatic: Denies swollen glands. [] Psychiatric: Denies depression or anxiety. [] Heart Score: Risk Factors: Risk Factors: DM, Current or recent (<one month) smoker, HTN, HLP, family history of CAD, obesity. Risk Scores: Score 0 - 3: 2.5% MACE over next 6 weeks - Discharge Home Score 4 - 6: 20.3% MACE over next 6 weeks - Admit for Clinical Observation Score 7 - 10: 72.7% MACE over next 6 weeks - Early Invasive Strategies Current Medications: Current Medications Medications (Trade) Dose Ordered Sig/Clau Start Time Stop Time Status Last Admin Dose Admin Acetaminophen (Tylenol) 1,000 mg 1X ONCE 02/06/20 19:00 02/06/20 19:01 Cancel Allergies: Allergies: Allergies Coded Allergies Type Severity Reaction Last Updated Verified adhesive tape Allergy Intermediate 12/05/18 Yes I S O L A T I O N *CONTACT* Allergy Unknown 12/06/18 Yes Physical Exam: PE: Constitutional: Well developed, well nourished, no acute distress, non-toxic appearance. [] HENT: Normocephalic, atraumatic, bilateral external ears normal, oropharynx moist, no oral exudates, nose normal. [] Eyes: PERRLA, EOMI, conjunctiva normal, no discharge. [] Neck: Normal range of motion, no tenderness, supple, no stridor. [] Cardiovascular:Heart rate regular rhythm, no murmur [] Lungs & Thorax: Bilateral breath sounds clear to auscultation [] Abdomen: Bowel sounds normal, soft, no tenderness, no masses, no pulsatile masses. [] Skin: Warm, dry, no erythema, no rash. [] Back: No tenderness, no CVA tenderness. [] Extremities: No tenderness, no cyanosis, no clubbing, ROM intact, no edema. [] Neurologic: Alert and oriented X 3, normal motor function, normal sensory function, no focal deficits noted. [] Psychologic: Affect normal, judgement normal, mood normal. [] Current Patient Data: Labs: Laboratory Tests Test 02/06/20 19:00 02/06/20 21:52 White Blood Count 9.4 x10^3/uL (4.0-11.0) Red Blood Count 3.39 x10^6/uL (4.30-5.70) L Hemoglobin 11.6 g/dL (13.0-17.5) L Hematocrit 33.4 % (39.0-53.0) L Mean Corpuscular Volume 98 fL (79-100) Mean Corpuscular Hemoglobin 34 pg (25-35) Mean Corpuscular Hemoglobin Concent 35 g/dL (31-37) Red Cell Distribution Width 15.5 % (11.5-14.5) H Platelet Count 189 x10^3/uL (140-400) Neutrophils (%) (Auto) 80 % (31-73) H Lymphocytes (%) (Auto) 7 % (24-48) L Monocytes (%) (Auto) 11 % (0-9) H Eosinophils (%) (Auto) 2 % (0-3) Basophils (%) (Auto) 1 % (0-3) Neutrophils # (Auto) 7.5 x10^3/uL (1.8-7.7) Lymphocytes # (Auto) 0.6 x10^3/uL (1.0-4.8) L Monocytes # (Auto) 1.0 x10^3/uL (0.0-1.1) Eosinophils # (Auto) 0.2 x10^3/uL (0.0-0.7) Basophils # (Auto) 0.1 x10^3/uL (0.0-0.2) Sodium Level 144 mmol/L (136-145) Potassium Level 3.9 mmol/L (3.5-5.1) Chloride Level 105 mmol/L (98-107) Carbon Dioxide Level 35 mmol/L (21-32) H Anion Gap 4 (6-14) L Blood Urea Nitrogen 25 mg/dL (8-26) Creatinine 1.7 mg/dL (0.7-1.3) H Estimated GFR (Cockcroft-Gault) 39.9 BUN/Creatinine Ratio 15 (6-20) Glucose Level 121 mg/dL (70-99) H Lactic Acid Level 1.3 mmol/L (0.4-2.0) Calcium Level 8.2 mg/dL (8.5-10.1) L Total Bilirubin 1.1 mg/dL (0.2-1.0) H Aspartate Amino Transferase (AST) 15 U/L (15-37) Alanine Aminotransferase (ALT) 10 U/L (16-63) L Alkaline Phosphatase 78 U/L (46-116) Troponin I Quantitative < 0.017 ng/mL (0.000-0.055) LQ-Usg-D-Type Natriuretic Peptide 5495 pg/mL (0-124) H Total Protein 7.3 g/dL (6.4-8.2) Albumin 2.6 g/dL (3.4-5.0) L Albumin/Globulin Ratio 0.6 (1.0-1.7) L Glucose (Fingerstick) 117 mg/dL (70-99) H Laboratory Tests 02/06/20 19:00 Laboratory Tests 02/06/20 19:00 Vital Signs: Vital Signs Date Time Temp Pulse Resp B/P (MAP) Pulse Ox O2 Delivery O2 Flow Rate FiO2 02/06/20 21:17 25 121/66 (84) 93 NonRebreather Mask 12.0 02/06/20 19:16 99.8 99.8 02/06/20 18:26 90 EKG: EKG: [] Radiology/Procedures: Radiology/Procedures: [] Impression: Cardiomegaly. Increasing confluent airspace opacities are seen throughout both lungs. There is probable left pleural effusion. There is a bipolar pacemaker in place. IMPRESSION: Cardiomegaly with worsening bilateral airspace infiltrates Electronically signed by: Marnie Mendez MD (02/06/2020 8:48 PM) [facility] Course & Med Decision Making: Course & Med Decision Making Pertinent Labs and Imaging studies reviewed. (See chart for details) [] Patient being evaluated for COVID. COVID lab obtained and pending. Chest x- ray infiltrates. Patient was treated with Zosyn Rocephin and vancomycin. Dragon Disclaimer: Dragon Disclaimer: This electronic medical record was generated, in whole or in part, using a voice recognition dictation system. Departure Departure Impression: Primary Impression: Person under investigation for COVID-19 Additional Impressions: Hypoxia Pneumonia Disposition: ADMITTED INPATIENT Admitting Physician: Madi. De La Rosa Condition: GUARDED Referrals: RENEA RAGLAND MD (PCP) Justicifation of Admission Dx: Justifications for Admission: Justification of Admission Dx: Yes Aspiration Pneumonia: Hypoxemia TL SANTOYO I DO Feb 06, 2020 22:36
--- NOTE | 2020-02-06 22:37 | NUR ---
Received ok orders to transfer pt to ICU for bipap.
--- NOTE | 2020-02-06 22:40 | NUR ---
After receiving ok orders to transfer, paged Impregnator Operator however approximately 10 min later received call from ICU nurse Eliane and states she will be taking the pt. Given report on pt and informed at this time only being able to do assessment on pt unable to perform anything else since just receiving from ED and attempting to assist pt with respiratory status. Informed Nurse of pt with excoriation in skin folds, groins, pannus and under arms.
[2020-02-06] MEDS ORDERED: VANCOMYCIN PER PHARMACY MC PRN (23:00)
[2020-02-06] MEDS ORDERED: VANCOMYCIN 2 GM in IV NORMAL SALINE 500ML BAG 500 ML IV ONE (23:00)
[2020-02-06 23:15] VITALS: BP 106/68
[2020-02-06 23:30] VITALS: BP 118/64
--- NOTE | 2020-02-06 23:37 | NUR ---
Spoke to Dr. Brennan and received ok orders for full code status. Placed in chart and informed ICU Nurse.
[2020-02-06 23:45] VITALS: BP 109/58
[2020-02-06 23:59] VITALS: BP 86/53
--- NOTE | 2020-02-06 23:59 | NUR ---
Pharmacy Vancomycin Dosing Note S:Consulted to monitor and dose vancomycin started 02/06/20. O:BRITTANY DOAN is a 69 year old M with Pneumonia . Height: 5 feet, 9 inches Weight: 159.0 kg [place] Body Weight: 70.70 Adjusted Body Weight: 106.02 Dosing Weight: Actual Other Antibiotics: ZOSYN 4.5GM IV Q6H LABS: Last BUN: 25 Last Creatinine: 1.7 Creatinine Clearance: 60 mL/min Last WBC: 9.4 Last Procalcitonin: Tmax (past 24 hours): Microbiology: I/O: Drug Levels: Last level: on at Last dose given at Vancomycin Dosing: Loading Dose: 2000 mg x1 02/06/20 2300 Dosing Weight: Actual Target Trough: 15-20 A: Based on: Actual Wt and CrCl P: 1. 02/07/20 1100 Vancomycin 2000 mg IV q12h 2. Follow up Trough level on 02/08/20 at 1030 3. Pharmacy will continue to monitor, follow and adjust therapy as needed. SVETA ABCA RPH, 02/06/20 2359 Signed: 02/06/20 at 0000 by SVETA BACA RPH PHA
[2020-02-07] VITALS (25 sets, daily range): BP systolic 87–133; BP diastolic 51–80
[2020-02-07] MEDS ORDERED: PIPERACILLIN/TAZOBACTAM 4.5 GM in IV NORMAL SALINE 100ML 100 ML IV SCH
--- NOTE | 2020-02-07 | NUR ---
2314 TRANSFER From 6s to ICU for increasing O2 needs. Upon arrival patient placed on bipap. RT to redraw ABG in one hour Addendum: 02/07/20 at 0034 by YULISA FONTANA RN unable to complete admission. patient is non-verbal
[2020-02-07] MEDS ORDERED: ACET325T21 PO (00:21)
[2020-02-07 01:29] LABS: BASE EXCESS ABG 9 mmol/L (-3-3); FIO2 ABG 50; HCO3 ABG 36 mmol/L (21-28); PCO2 ABG 59 mmHg (35-46); PO2 ABG 70 mmHg (65-108); SAT O2 ABG 92 % (92-99)
--- NOTE | 2020-02-07 07:55 | EKG ---
[facility] [address] [place] [address] Test Date: 2020-02-06 Test Time: 18:40:43 Pat Name: BRITTANY DOAN Department: Room: Gender: M Stopping Builder: : [id number] Requested By: TL SANTOYO Order Number: [id number] Reading MD: Measurements Intervals [place] Rate: 95 P: DE: QRS: -28 QRSD: 118 T: 66 QT: 384 QTc: 486 Interpretive Statements IRREGULAR RHYTHM, NO P-WAVE FOUND LEFTWARD AXIS LOW LIMB LEAD VOLTAGE PROLONGED QT NO SPECIFIC ECG ABNORMALITIES RI6.01 No previous ECG available for comparison
[2020-02-07 09:10] LABS: BASE EXCESS ABG 7 mmol/L (-3-3); HCO3 ABG 32 mmol/L (21-28); PCO2 ABG 48 mmHg (35-46); PO2 ABG 75 mmHg (65-108); SAT O2 ABG 95 % (92-99)
[2020-02-07 09:19] LABS: FIO2 ABG 60%
[2020-02-07 09:58] LABS: BASO % 1 % (0-3); EOS # 0.3 x10^3/uL (0.0-0.7); EOS % 5 % (0-3); HEMATOCRIT 33.2 % (39.0-53.0); LYMPH # 0.6 x10^3/uL (1.0-4.8); LYMPH % 9 % (24-48); MEAN CORPUSCULAR HEMOGLOBIN 33 pg (25-35); MEAN CORPUSCULAR HGB CONC 33 g/dL (31-37); MEAN CORPUSCULAR VOLUME 100 fL (79-100); MONO # 0.6 x10^3/uL (0.0-1.1); MONO % 9 % (0-9); NEUT # 5.3 x10^3/uL (1.8-7.7); NEUT % 78 % (31-73); PLATELET COUNT 177 x10^3/uL (140-400); RED BLOOD COUNT 3.34 x10^6/uL (4.30-5.70); RED CELL DISTRIBUTION WIDTH 15.8 % (11.5-14.5); WHITE BLOOD COUNT 6.8 x10^3/uL (4.0-11.0)
[2020-02-07 10:16] LABS: CALCIUM 8.4 mg/dL (8.5-10.1); CREATININE 1.7 mg/dL (0.7-1.3); GFR 39.9; MAGNESIUM 2.2 mg/dL (1.8-2.4); POTASSIUM 3.6 mmol/L (3.5-5.1)
[2020-02-07] MEDS ORDERED: ACETAMINOPHEN 325 MG TABLET. PO PRN (10:45)
[2020-02-07] MEDS ORDERED: SODIUM CHLORIDE 0.65% NASAL SPRAY 45ML BOTTLE. NS PRN (10:45)
[2020-02-07] MEDS: AMMONIUM LACTATE 12% TOPICAL LOTION 226GM BOTTLE. TP SCH ×3 (11:00→20:39)
[2020-02-07] MEDS ORDERED: VANCOMYCIN 2 GM in IV NORMAL SALINE 500ML BAG 500 ML IV SCH (11:00)
[2020-02-07] MEDS: POLYETHYLENE GLYCOL 3350 17 GM PACKET. PO SCH ×2 (11:00→12:14)
[2020-02-07] MEDS: amLODIPine BESYLATE 5 MG TABLET PO SCH (11:00)
--- NOTE | 2020-02-07 11:01 | PDOC ---
Infectious Disease Note Vital Sign Vital Signs Vital Signs Date Time Temp Pulse Resp B/P (MAP) Pulse Ox O2 Delivery O2 Flow Rate FiO2 02/07/20 10:00 80 20 106/65 (79) 95 BiPAP/CPAP 02/07/20 08:00 99.4 99.4 02/06/20 22:00 15.0 Labs Lab Laboratory Tests Test 02/06/20 19:00 02/06/20 21:52 02/06/20 22:23 02/07/20 01:13 White Blood Count 9.4 x10^3/uL (4.0-11.0) Red Blood Count 3.39 x10^6/uL (4.30-5.70) Hemoglobin 11.6 g/dL (13.0-17.5) Hematocrit 33.4 % (39.0-53.0) Mean Corpuscular Volume 98 fL (79-100) Mean Corpuscular Hemoglobin 34 pg (25-35) Mean Corpuscular Hemoglobin Concent 35 g/dL (31-37) Red Cell Distribution Width 15.5 % (11.5-14.5) Platelet Count 189 x10^3/uL (140-400) Neutrophils (%) (Auto) 80 % (31-73) Lymphocytes (%) (Auto) 7 % (24-48) Monocytes (%) (Auto) 11 % (0-9) Eosinophils (%) (Auto) 2 % (0-3) Basophils (%) (Auto) 1 % (0-3) Neutrophils # (Auto) 7.5 x10^3/uL (1.8-7.7) Lymphocytes # (Auto) 0.6 x10^3/uL (1.0-4.8) Monocytes # (Auto) 1.0 x10^3/uL (0.0-1.1) Eosinophils # (Auto) 0.2 x10^3/uL (0.0-0.7) Basophils # (Auto) 0.1 x10^3/uL (0.0-0.2) Sodium Level 144 mmol/L (136-145) Potassium Level 3.9 mmol/L (3.5-5.1) Chloride Level 105 mmol/L (98-107) Carbon Dioxide Level 35 mmol/L (21-32) Anion Gap 4 (6-14) Blood Urea Nitrogen 25 mg/dL (8-26) Creatinine 1.7 mg/dL (0.7-1.3) Estimated GFR (Cockcroft-Gault) 39.9 BUN/Creatinine Ratio 15 (6-20) Glucose Level 121 mg/dL (70-99) Lactic Acid Level 1.3 mmol/L (0.4-2.0) Calcium Level 8.2 mg/dL (8.5-10.1) Total Bilirubin 1.1 mg/dL (0.2-1.0) Aspartate Amino Transf (AST/SGOT) 15 U/L (15-37) Alanine Aminotransferase (ALT/SGPT) 10 U/L (16-63) Alkaline Phosphatase 78 U/L (46-116) Troponin I Quantitative < 0.017 ng/mL (0.000-0.055) LE-Nbt-E-Type Natriuretic Peptide 5495 pg/mL (0-124) Total Protein 7.3 g/dL (6.4-8.2) Albumin 2.6 g/dL (3.4-5.0) Albumin/Globulin Ratio 0.6 (1.0-1.7) Glucose (Fingerstick) 117 mg/dL (70-99) O2 Saturation 93 % (92-99) 92 % (92-99) Arterial Blood pH 7.28 (7.35-7.45) 7.41 (7.35-7.45) Arterial Blood pCO2 at Patient Temp 71 mmHg (35-46) 59 mmHg (35-46) Arterial Blood pO2 at Patient Temp 83 mmHg (65-108) 70 mmHg (65-108) Arterial Blood HCO3 33 mmol/L (21-28) 36 mmol/L (21-28) Arterial Blood Base Excess 4 mmol/L (-3-3) 9 mmol/L (-3-3) Oxyhemoglobin 91.1 % Methemoglobin 0.4 % (0.0-1.9) Carbon Monoxide, Quantitative 1.7 % (0.0-1.9) FiO2 100 50 Test 02/07/20 08:43 02/07/20 09:35 O2 Saturation 95 % (92-99) Arterial Blood pH 7.45 (7.35-7.45) Arterial Blood pCO2 at Patient Temp 48 mmHg (35-46) Arterial Blood pO2 at Patient Temp 75 mmHg (65-108) Arterial Blood HCO3 32 mmol/L (21-28) Arterial Blood Base Excess 7 mmol/L (-3-3) FiO2 60% White Blood Count 6.8 x10^3/uL (4.0-11.0) Red Blood Count 3.34 x10^6/uL (4.30-5.70) Hemoglobin 11.0 g/dL (13.0-17.5) Hematocrit 33.2 % (39.0-53.0) Mean Corpuscular Volume 100 fL (79-100) Mean Corpuscular Hemoglobin 33 pg (25-35) Mean Corpuscular Hemoglobin Concent 33 g/dL (31-37) Red Cell Distribution Width 15.8 % (11.5-14.5) Platelet Count 177 x10^3/uL (140-400) Neutrophils (%) (Auto) 78 % (31-73) Lymphocytes (%) (Auto) 9 % (24-48) Monocytes (%) (Auto) 9 % (0-9) Eosinophils (%) (Auto) 5 % (0-3) Basophils (%) (Auto) 1 % (0-3) Neutrophils # (Auto) 5.3 x10^3/uL (1.8-7.7) Lymphocytes # (Auto) 0.6 x10^3/uL (1.0-4.8) Monocytes # (Auto) 0.6 x10^3/uL (0.0-1.1) Eosinophils # (Auto) 0.3 x10^3/uL (0.0-0.7) Basophils # (Auto) 0.0 x10^3/uL (0.0-0.2) Prothrombin Time 18.0 SEC (11.7-14.0) Prothromb Time International Ratio 1.5 (0.8-1.1) Sodium Level 147 mmol/L (136-145) Potassium Level 3.6 mmol/L (3.5-5.1) Chloride Level 106 mmol/L (98-107) Carbon Dioxide Level 33 mmol/L (21-32) Anion Gap 8 (6-14) Blood Urea Nitrogen 27 mg/dL (8-26) Creatinine 1.7 mg/dL (0.7-1.3) Estimated GFR (Cockcroft-Gault) 39.9 Glucose Level 72 mg/dL (70-99) Calcium Level 8.4 mg/dL (8.5-10.1) Magnesium Level 2.2 mg/dL (1.8-2.4) Micro Microbiology 02/06/20 Blood Culture - Final, Complete Objective Assessment pt seen, consult dictated Plan Plan of Care / MARY ARMENTA MD Feb 07, 2020 11:00
--- NOTE | 2020-02-07 11:05 | HP ---
ADMIT DATE: 02/06/2020 HISTORY OF PRESENT ILLNESS: The patient is a 69-year-old male patient, a resident at [facility], who apparently was noted by the nursing staff at the [facility] to have short of breath, he was febrile, hypoxic with oxygen saturation was only 70% on 5 liters by nasal cannula. He was put on 12 liters nonrebreather mask and by the time he arrived to the Emergency Room, his oxygen saturation was 95%. He was very confused and denied any shortness of breath. When he arrived here, he was afebrile on arrival, although the nursing staff when they called me said that his temperature was 101.5, he was tachypneic with the respiratory rate 27, blood pressure was within normal limits. He was extensively investigated in the Emergency Room. His lab work showed his white cell count was normal. His chemistry was mostly unremarkable. He has chronic kidney disease and his prothrombin time, INR was subtherapeutic. His blood gases showed that he was in acute hypoxic hypercapnic respiratory failure and his chest x-ray showed the patient has cardiomegaly with worsening bilateral airspace infiltrate. Therefore, the patient was admitted with acute hypoxic hypercapnic respiratory failure and treated with healthcare-associated pneumonia with IV vancomycin and Zosyn. Shortly after he was admitted, he continued to be hypoxic and therefore he was transferred to the ICU to continue on BiPAP machine. The patient himself is very lethargic and confused, does not give any useful information, although he normally is awake, alert, although sometimes somewhat eccentric. PAST MEDICAL HISTORY: Significant for type 2 diabetes mellitus, hypertension, chronic kidney disease, atrial fibrillation, morbid obesity and obstructive sleep apnea, on CPAP. He is known to have chronic hypoxic hypercapnic respiratory failure, cardiomyopathy, cerebrovascular accident. Has had episodes of ventricular tachycardia, for which he has an AICD and chronic intertriginous candidiasis. PAST SURGICAL HISTORY: Significant for left heart catheterization, hernia repair, colonoscopy, AICD implantation for ventricular tachycardia. FAMILY HISTORY: Both parents have hypertension and both . SOCIAL HISTORY: He is single, never , used to live alone, was a registered nurse. According to him, he does not smoke, drink alcohol or use any recreational drugs. ALLERGIES: ALLERGIC TO TAPE. MEDICATIONS: He is currently on the following medications: He is on diphenhydramine 25 mg every 6 hours as needed for itching, warfarin 4 mg daily, amiodarone 200 mg daily, carvedilol 6.25 mg twice a day, amlodipine 5 mg once a day, aspirin 81 mg chewable tablet 1 tablet once a day, acetaminophen 650 mg every 4 hours, torsemide 20 mg daily, saline mist one spray to each nostril every 4 hours, lactobacillus acidophilus 100 mg p.o. b.i.d., polyethylene glycol 17 grams daily, glimepiride 2 mg daily, Nystatin powder apply topically 3 times a day, ammonium lactate apply to dry skin of both lower extremities twice a day. REVIEW OF SYSTEMS: As per history of present illness. PHYSICAL EXAMINATION: GENERAL: On arrival to the Emergency Room, he was clearly tachypneic, pale. No jaundice, cyanosis or thyromegaly. No jugular venous distention. No limb edema. VITAL SIGNS: His heart rate was 90, blood pressure was 131/60, temperature was 98.4, respiratory rate was 27 and oxygen saturation was 95% on 10 liters of oxygen by nonrebreather mask. HEAD, EYES, EARS, NOSE AND THROAT: Normocephalic, atraumatic. NECK: Supple. HEART: Showed normal first and second heart sounds. No gallop or murmur. CHEST: Shows central trachea, equal bilateral expansion, air entry. Vesicular breath sounds. No crepitation or rhonchi anteriorly. ABDOMEN: Distended, soft, nontender. No guarding or rigidity. No organomegaly. All hernial orifice intact. Bowel sounds normal. NEUROLOGIC: He was alert, oriented x 3 with normal motor and sensory function with no obvious focal deficit. EXTREMITIES: Showed no clubbing, cyanosis or edema. He has chronic venous hypertension with marked hyperpigmentation of both lower extremities. He has also intertriginous candidiasis skin folds on both groin areas, although it seems to be much better than before. LABORATORY WORK: On arrival showed a white cell count of 9400, hemoglobin 11.6, hematocrit 33.4, MCV 98 and platelet count of 189,000 with normal manual differential. His prothrombin time was 18, INR of 1.5. His chemistry on arrival showed a serum sodium 144, potassium 3.9, chloride 105, bicarbonate 35, anion gap of 4, BUN 25, creatinine 1.7, estimated GFR was 39 mL per minute. His glucose is 121, calcium was 8.2. Total bilirubin, AST, ALT, alkaline phosphatase were normal. Total protein was 7.3, albumin was 2.6. Lactic acid was only 1.3. His beta natriuretic peptide was high at 5495. His blood gases on admission showed a pH of 7.28, pCO2 of 71, pO2 of 83, bicarbonate 33 and oxygen saturation was 93% on FiO2 of 100%. His blood sent for culture and sensitivity, the result showed growth of gram-positive cocci in clusters 1/2 bottles. The patient was started on IV Zosyn and vancomycin and per the ER physician, continued on BiPAP machine. We will consult the insurance risk manager and Infectious Disease to assist with management. RENEA RAGLAND MD DR: ANGEL/nila JOB#: [id number] / [id number]
--- NOTE | 2020-02-07 11:17 | PN ---
DATE: 02/07/2020 SUBJECTIVE: The patient is resting, slightly propped up in bed, continued to be very sleepy, but arousable. On questing him, he denied any complaint. The nursing staff did not voice any concerns that he has an uneventful night. PHYSICAL EXAMINATION: GENERAL: When I examined him, he looked somewhat pale, but no jaundice, cyanosis or thyromegaly. No jugular venous distention. No lower limb edema. VITAL SIGNS: His heart rate was 96, blood pressure was 118/64, temperature was 99.1, respiratory rate 30 and oxygen saturation was 97% on FiO2 of 60% on BiPAP machine. HEAD, EYES, EARS, NOSE AND THROAT: Showed normocephalic, atraumatic. NECK: Supple. HEART: Showed normal first and second heart sounds. No gallop, rub or murmur. CHEST: Clear to auscultation. No crepitation or rhonchi. ABDOMEN: Distended, soft, nontender. NEUROLOGIC: He was lethargic, but arousable. All cranial nerves are intact. He moves extremities without difficulty. His intake and output were incompletely recorded. LABORATORY DATA: His lab work this morning showed a white cell count of 6800, hemoglobin 11, hematocrit 33, MCV 100, and platelet count of 177,000. His chemistry this morning showed a serum sodium 147, potassium 3.6, chloride 106, bicarbonate 33, anion gap of 8, BUN 27, creatinine 1.7, estimated GFR was 40 mL per minute. His glucose was 72, calcium was 8.4, magnesium was 2.2. His blood gases this morning showed a pH of 7.45, pCO2 of 48, pO2 of 75, bicarbonate 32, oxygen saturation was 95% on FiO2 of 60%. His blood culture apparently showed growth of gram-positive cocci in clusters in 1 of 2 bottles. ASSESSMENT: 1. Acute hypoxic hypercapnic respiratory failure for which he is currently on BiPAP machine. 2. Healthcare-associated pneumonia for which he is currently on IV Zosyn and vancomycin. 3. Chronic hypoxic respiratory failure. 4. Morbid obesity, obstructive sleep apnea for which he is on CPAP. 5. Atrial fibrillation, rate controlled, well anticoagulated on Coumadin, although his INR is supratherapeutic. 6. The patient is known to have chronic diastolic congestive heart failure. 7. Chronic kidney disease, has ventricular tachycardia for which he has an automatic implantable cardioverter-defibrillator, chronic intertriginous candidiasis and type 2 diabetes as well as hypertension. PLAN: To switch him to Zyvox and discontinue the vancomycin given impaired kidney function. I will also cut down the dose of Zosyn. His kidney function is impaired. I will consult the [employer] managed service sales exec as well as the Infectious Disease specialist. RENEA RAGLAND MD DR: ANGEL/nila JOB#: [id number] / [id number]
[2020-02-07] MEDS: PIPERACILLIN/TAZOBACTAM 2.25 GM in IV NORMAL SALINE 50ML 50 ML IV SCH ×3 (11:22→23:54)
--- NOTE | 2020-02-07 12:08 | CONS ---
DATE OF CONSULTATION: 02/07/2020 REQUESTING PHYSICIAN: RENEA RAGLAND MD REASON FOR CONSULTATION: Blood culture positive. HISTORY OF PRESENT ILLNESS: This is a 69-year-old gentleman who is a senior living resident for at least 2 years, who was brought in for change in mental status and hypoxia. The patient's oxygen saturation was 70% on 5 liters. The patient has multiple medical problems. There was no nausea, vomiting, diarrhea or fever noted. The patient was admitted. Blood cultures were done, which is 1 out of 2 positive with Gram-positive cocci. The patient has bilateral pulmonary infiltrates, normal white count. COVID-19 has been ordered and is pending. The patient received several antibiotics and now is on Zyvox and Zosyn. The patient is alert, awake, able to communicate. He says he did not feel that he was short of breath or confused and he had no complaints. He does not know why he is here. PAST MEDICAL HISTORY: Positive for diabetes mellitus, hypertension, obesity, renal insufficiency, atrial fibrillation, obstructive sleep apnea, cardiomyopathy, CVA, AICD in place. SOCIAL HISTORY: Negative for smoking, alcohol or illicit drug use. The patient is a senior living resident. The patient cannot walk. ALLERGIES: No known drug allergies. CURRENT MEDICATIONS: Reviewed. REVIEW OF SYSTEMS: As per HPI, all other systems reviewed are negative. PHYSICAL EXAMINATION: GENERAL: Alert, oriented gentleman, not in distress. VITAL SIGNS: Stable with a T-max 99.4. HEENT: NAD. NECK: Supple, no JVP, no lymphadenopathy. LUNGS: Clear. HEART: S1, S2 regular. ABDOMEN: Benign. EXTREMITIES: No edema, cyanosis. The patient does have venous insufficiency changes in the leg. SKIN: Unremarkable. NEUROLOGIC: The patient is alert, awake, able to communicate simple questions and able to answer appropriately, does move all the extremities, although very weak and debilitated. LABORATORY DATA: White count is 8.6, hemoglobin 11.0, and platelets are normal. BUN and creatinine is 27 and 1.7. Lactic acid 1.3. BNP 5495. COVID-19 is pending. Blood culture 1 out of 2 is positive with Gram-positive cocci in clusters. Chest x-ray is showing bilateral cardiomegaly and bilateral airspace infiltrate. IMPRESSION: 1. Blood cultures positive 1 out of 2 most likely to be contaminant, identification is pending. 2. Pulmonary infiltrate. COVID-19 is pending. 3. Hypoxemia. 3. Congestive heart failure. 4. Renal insufficiency. 5. Diabetes. 6. Hypertension. 7. Obesity. RECOMMENDATIONS: Continue Zyvox and Zosyn. Supportive care. We will follow the cultures and adjust. Thank you very much, Dr. Ragland, for giving me the opportunity to participate in this patient's care. MARY ARMENTA MD DR: JANNET/nila JOB#: [id number] / [id number]
[2020-02-07] MEDS: LACTOBACILLUS RHAMNOSUS GG 1 CAPSULE. PO SCH ×2 (12:13→20:39)
[2020-02-07] MEDS: CARVEDILOL 6.25 MG TABLET. PO SCH (12:13)
[2020-02-07] MEDS: GLIMEPIRIDE 2 MG TABLET. PO SCH (12:13)
[2020-02-07] MEDS: ASPIRIN CHEWABLE 81 MG TABLET. PO SCH (12:14)
[2020-02-07] MEDS: TORSEMIDE 20 MG TABLET. PO SCH (12:14)
[2020-02-07] MEDS: NYSTATIN TOPICAL POWDER 15GM BOTTLE. TP SCH ×3 (12:14→20:39)
[2020-02-07] MEDS: AMIODARONE HCL 200 MG TABLET. PO SCH (12:14)
--- NOTE | 2020-02-07 12:21 | NUR ---
SS following for discharge planning. SS reviewed pt chart and discussed with pt RN. Pt is LTC resident from [facility], [place], ; fax [phone]. Pt is currently on BIPAP, IV Zosyn, and IV Zyvox. Pt COVID19 pending. SS will continue to follow for discharge planning.
[2020-02-07] MEDS ORDERED: SENN8.6T99 PO (13:41)
[2020-02-07] MEDS ORDERED: FINA5TAB4 PO (13:41)
[2020-02-07] MEDS ORDERED: APIX5TAB PO (13:41)
[2020-02-07] MEDS ORDERED: HYDR-2769 PO (13:41)
[2020-02-07] MEDS ORDERED: MULT-245 PO (13:41)
[2020-02-07] MEDS ORDERED: TAMS0.4C97 PO (13:41)
[2020-02-07] MEDS ORDERED: ANTI-COAG MONITOR BY PHARMACY. MC PRN (14:00)
--- NOTE | 2020-02-07 14:08 | PDOC ---
PULMONARY PROGRESS NOTES Vitals Vital Signs Date Time Temp Pulse Resp B/P (MAP) Pulse Ox O2 Delivery O2 Flow Rate FiO2 02/07/20 13:00 98 20 133/73 (93) 94 BiPAP/CPAP 02/07/20 12:00 98.1 98.1 02/06/20 22:00 15.0 General: Alert Lungs: Other Cardiovascular: S1, S2 Abdomen: Other Extremities: Other Labs Laboratory Tests Test 02/06/20 19:00 02/06/20 21:52 02/06/20 22:23 02/07/20 01:13 White Blood Count 9.4 x10^3/uL (4.0-11.0) Red Blood Count 3.39 x10^6/uL (4.30-5.70) Hemoglobin 11.6 g/dL (13.0-17.5) Hematocrit 33.4 % (39.0-53.0) Mean Corpuscular Volume 98 fL (79-100) Mean Corpuscular Hemoglobin 34 pg (25-35) Mean Corpuscular Hemoglobin Concent 35 g/dL (31-37) Red Cell Distribution Width 15.5 % (11.5-14.5) Platelet Count 189 x10^3/uL (140-400) Neutrophils (%) (Auto) 80 % (31-73) Lymphocytes (%) (Auto) 7 % (24-48) Monocytes (%) (Auto) 11 % (0-9) Eosinophils (%) (Auto) 2 % (0-3) Basophils (%) (Auto) 1 % (0-3) Neutrophils # (Auto) 7.5 x10^3/uL (1.8-7.7) Lymphocytes # (Auto) 0.6 x10^3/uL (1.0-4.8) Monocytes # (Auto) 1.0 x10^3/uL (0.0-1.1) Eosinophils # (Auto) 0.2 x10^3/uL (0.0-0.7) Basophils # (Auto) 0.1 x10^3/uL (0.0-0.2) Sodium Level 144 mmol/L (136-145) Potassium Level 3.9 mmol/L (3.5-5.1) Chloride Level 105 mmol/L (98-107) Carbon Dioxide Level 35 mmol/L (21-32) Anion Gap 4 (6-14) Blood Urea Nitrogen 25 mg/dL (8-26) Creatinine 1.7 mg/dL (0.7-1.3) Estimated GFR (Cockcroft-Gault) 39.9 BUN/Creatinine Ratio 15 (6-20) Glucose Level 121 mg/dL (70-99) Lactic Acid Level 1.3 mmol/L (0.4-2.0) Calcium Level 8.2 mg/dL (8.5-10.1) Total Bilirubin 1.1 mg/dL (0.2-1.0) Aspartate Amino Transf (AST/SGOT) 15 U/L (15-37) Alanine Aminotransferase (ALT/SGPT) 10 U/L (16-63) Alkaline Phosphatase 78 U/L (46-116) Troponin I Quantitative < 0.017 ng/mL (0.000-0.055) YJ-Ayz-D-Type Natriuretic Peptide 5495 pg/mL (0-124) Total Protein 7.3 g/dL (6.4-8.2) Albumin 2.6 g/dL (3.4-5.0) Albumin/Globulin Ratio 0.6 (1.0-1.7) Glucose (Fingerstick) 117 mg/dL (70-99) O2 Saturation 93 % (92-99) 92 % (92-99) Arterial Blood pH 7.28 (7.35-7.45) 7.41 (7.35-7.45) Arterial Blood pCO2 at Patient Temp 71 mmHg (35-46) 59 mmHg (35-46) Arterial Blood pO2 at Patient Temp 83 mmHg (65-108) 70 mmHg (65-108) Arterial Blood HCO3 33 mmol/L (21-28) 36 mmol/L (21-28) Arterial Blood Base Excess 4 mmol/L (-3-3) 9 mmol/L (-3-3) Oxyhemoglobin 91.1 % Methemoglobin 0.4 % (0.0-1.9) Carbon Monoxide, Quantitative 1.7 % (0.0-1.9) FiO2 100 50 Test 02/07/20 08:43 02/07/20 09:35 O2 Saturation 95 % (92-99) Arterial Blood pH 7.45 (7.35-7.45) Arterial Blood pCO2 at Patient Temp 48 mmHg (35-46) Arterial Blood pO2 at Patient Temp 75 mmHg (65-108) Arterial Blood HCO3 32 mmol/L (21-28) Arterial Blood Base Excess 7 mmol/L (-3-3) FiO2 60% White Blood Count 6.8 x10^3/uL (4.0-11.0) Red Blood Count 3.34 x10^6/uL (4.30-5.70) Hemoglobin 11.0 g/dL (13.0-17.5) Hematocrit 33.2 % (39.0-53.0) Mean Corpuscular Volume 100 fL (79-100) Mean Corpuscular Hemoglobin 33 pg (25-35) Mean Corpuscular Hemoglobin Concent 33 g/dL (31-37) Red Cell Distribution Width 15.8 % (11.5-14.5) Platelet Count 177 x10^3/uL (140-400) Neutrophils (%) (Auto) 78 % (31-73) Lymphocytes (%) (Auto) 9 % (24-48) Monocytes (%) (Auto) 9 % (0-9) Eosinophils (%) (Auto) 5 % (0-3) Basophils (%) (Auto) 1 % (0-3) Neutrophils # (Auto) 5.3 x10^3/uL (1.8-7.7) Lymphocytes # (Auto) 0.6 x10^3/uL (1.0-4.8) Monocytes # (Auto) 0.6 x10^3/uL (0.0-1.1) Eosinophils # (Auto) 0.3 x10^3/uL (0.0-0.7) Basophils # (Auto) 0.0 x10^3/uL (0.0-0.2) Prothrombin Time 18.0 SEC (11.7-14.0) Prothromb Time International Ratio 1.5 (0.8-1.1) Sodium Level 147 mmol/L (136-145) Potassium Level 3.6 mmol/L (3.5-5.1) Chloride Level 106 mmol/L (98-107) Carbon Dioxide Level 33 mmol/L (21-32) Anion Gap 8 (6-14) Blood Urea Nitrogen 27 mg/dL (8-26) Creatinine 1.7 mg/dL (0.7-1.3) Estimated GFR (Cockcroft-Gault) 39.9 Glucose Level 72 mg/dL (70-99) Calcium Level 8.4 mg/dL (8.5-10.1) Magnesium Level 2.2 mg/dL (1.8-2.4) Laboratory Tests Test 02/06/20 19:00 02/06/20 21:52 02/06/20 22:23 02/07/20 01:13 White Blood Count 9.4 x10^3/uL (4.0-11.0) Red Blood Count 3.39 x10^6/uL (4.30-5.70) Hemoglobin 11.6 g/dL (13.0-17.5) Hematocrit 33.4 % (39.0-53.0) Mean Corpuscular Volume 98 fL (79-100) Mean Corpuscular Hemoglobin 34 pg (25-35) Mean Corpuscular Hemoglobin Concent 35 g/dL (31-37) Red Cell Distribution Width 15.5 % (11.5-14.5) Platelet Count 189 x10^3/uL (140-400) Neutrophils (%) (Auto) 80 % (31-73) Lymphocytes (%) (Auto) 7 % (24-48) Monocytes (%) (Auto) 11 % (0-9) Eosinophils (%) (Auto) 2 % (0-3) Basophils (%) (Auto) 1 % (0-3) Neutrophils # (Auto) 7.5 x10^3/uL (1.8-7.7) Lymphocytes # (Auto) 0.6 x10^3/uL (1.0-4.8) Monocytes # (Auto) 1.0 x10^3/uL (0.0-1.1) Eosinophils # (Auto) 0.2 x10^3/uL (0.0-0.7) Basophils # (Auto) 0.1 x10^3/uL (0.0-0.2) Sodium Level 144 mmol/L (136-145) Potassium Level 3.9 mmol/L (3.5-5.1) Chloride Level 105 mmol/L (98-107) Carbon Dioxide Level 35 mmol/L (21-32) Anion Gap 4 (6-14) Blood Urea Nitrogen 25 mg/dL (8-26) Creatinine 1.7 mg/dL (0.7-1.3) Estimated GFR (Cockcroft-Gault) 39.9 BUN/Creatinine Ratio 15 (6-20) Glucose Level 121 mg/dL (70-99) Lactic Acid Level 1.3 mmol/L (0.4-2.0) Calcium Level 8.2 mg/dL (8.5-10.1) Total Bilirubin 1.1 mg/dL (0.2-1.0) Aspartate Amino Transf (AST/SGOT) 15 U/L (15-37) Alanine Aminotransferase (ALT/SGPT) 10 U/L (16-63) Alkaline Phosphatase 78 U/L (46-116) Troponin I Quantitative < 0.017 ng/mL (0.000-0.055) QH-Bkf-T-Type Natriuretic Peptide 5495 pg/mL (0-124) Total Protein 7.3 g/dL (6.4-8.2) Albumin 2.6 g/dL (3.4-5.0) Albumin/Globulin Ratio 0.6 (1.0-1.7) Glucose (Fingerstick) 117 mg/dL (70-99) O2 Saturation 93 % (92-99) 92 % (92-99) Arterial Blood pH 7.28 (7.35-7.45) 7.41 (7.35-7.45) Arterial Blood pCO2 at Patient Temp 71 mmHg (35-46) 59 mmHg (35-46) Arterial Blood pO2 at Patient Temp 83 mmHg (65-108) 70 mmHg (65-108) Arterial Blood HCO3 33 mmol/L (21-28) 36 mmol/L (21-28) Arterial Blood Base Excess 4 mmol/L (-3-3) 9 mmol/L (-3-3) Oxyhemoglobin 91.1 % Methemoglobin 0.4 % (0.0-1.9) Carbon Monoxide, Quantitative 1.7 % (0.0-1.9) FiO2 100 50 Test 02/07/20 08:43 02/07/20 09:35 O2 Saturation 95 % (92-99) Arterial Blood pH 7.45 (7.35-7.45) Arterial Blood pCO2 at Patient Temp 48 mmHg (35-46) Arterial Blood pO2 at Patient Temp 75 mmHg (65-108) Arterial Blood HCO3 32 mmol/L (21-28) Arterial Blood Base Excess 7 mmol/L (-3-3) FiO2 60% White Blood Count 6.8 x10^3/uL (4.0-11.0) Red Blood Count 3.34 x10^6/uL (4.30-5.70) Hemoglobin 11.0 g/dL (13.0-17.5) Hematocrit 33.2 % (39.0-53.0) Mean Corpuscular Volume 100 fL (79-100) Mean Corpuscular Hemoglobin 33 pg (25-35) Mean Corpuscular Hemoglobin Concent 33 g/dL (31-37) Red Cell Distribution Width 15.8 % (11.5-14.5) Platelet Count 177 x10^3/uL (140-400) Neutrophils (%) (Auto) 78 % (31-73) Lymphocytes (%) (Auto) 9 % (24-48) Monocytes (%) (Auto) 9 % (0-9) Eosinophils (%) (Auto) 5 % (0-3) Basophils (%) (Auto) 1 % (0-3) Neutrophils # (Auto) 5.3 x10^3/uL (1.8-7.7) Lymphocytes # (Auto) 0.6 x10^3/uL (1.0-4.8) Monocytes # (Auto) 0.6 x10^3/uL (0.0-1.1) Eosinophils # (Auto) 0.3 x10^3/uL (0.0-0.7) Basophils # (Auto) 0.0 x10^3/uL (0.0-0.2) Prothrombin Time 18.0 SEC (11.7-14.0) Prothromb Time International Ratio 1.5 (0.8-1.1) Sodium Level 147 mmol/L (136-145) Potassium Level 3.6 mmol/L (3.5-5.1) Chloride Level 106 mmol/L (98-107) Carbon Dioxide Level 33 mmol/L (21-32) Anion Gap 8 (6-14) Blood Urea Nitrogen 27 mg/dL (8-26) Creatinine 1.7 mg/dL (0.7-1.3) Estimated GFR (Cockcroft-Gault) 39.9 Glucose Level 72 mg/dL (70-99) Calcium Level 8.4 mg/dL (8.5-10.1) Magnesium Level 2.2 mg/dL (1.8-2.4) Medications Active Scripts Medications Dose Route/Sig Max Daily Dose Days Date Category Senokot (Sennosides) 8.6 Mg Tablet 2 Tab PO BID 20 02/07/20 Reported Finasteride 5 Mg Tablet 1 Tab PO DAILY 02/07/20 Reported Multi Vitamin Daily (Multivitamin) 1 Each Tablet 1 Tab PO DAILY 30 02/07/20 Reported Hydrocodone-Apap 10-325 (Hydrocodone Bit/Acetaminophen) 1 Tab Tablet 1 Tab PO PRN Q4HRS PRN 02/07/20 Reported Flomax (Tamsulosin Hcl) 0.4 Mg Cap.er.24h 1 Cap PO HS 02/07/20 Reported Eliquis (Apixaban) 5 Mg Tablet 5 Mg PO BID 02/07/20 Reported Tylenol (Acetaminophen) 325 Mg Tablet 2 Tab PO PRN Q4HRS 12/05/18 Reported Nystatin 15 Gm Powder 1 [place]ila TP TID 12/05/18 Reported Carvedilol (Carvedilol) 6.25 Mg Tablet 6.25 Mg PO BIDWMEALS 12/05/18 Reported Torsemide 20 Mg Tablet 2 Tab PO DAILY 12/05/18 Reported Glimepiride 2 Mg Tablet 1 Tab PO DAILY 12/05/18 Reported Aspirin 81 Mg Tab.chew 1 Tab PO DAILY 12/05/18 Reported Amlodipine Besylate 5 Mg Tablet 5 Mg PO DAILY 12/05/18 Reported Amiodarone Hcl 200 Mg Tablet 1 Tab PO DAILY 12/05/18 Reported Impression . Full note dictated, discussed with Dr. Moody Acute hypoxemic respiratory failure, possibly bacteremic, possible COVID-19. See orders. ZORA CATHERINE MD Feb 07, 2020 14:08
--- NOTE | 2020-02-07 14:35 | CONS ---
DATE OF CONSULTATION: 02/07/2020 ATTENDING PHYSICIAN: Rj Brennan MD REASON FOR CONSULTATION: The patient is seen in pulmonary consultation at the request of Dr. Brennan for respiratory failure. HISTORY OF PRESENT ILLNESS: The patient is a 69-year-old male who resides at a [facility] for the past 2 years, was brought in as a consequence of decreased level of consciousness and oxygen saturation of 70%. The patient is currently awake, alert. He is on BiPAP. He has had some blood cultures done, which were positive 1/2. He has been seen by Infectious Disease service. He is currently being treated for bacteremia, possible pneumonia. His x-ray revealed bilateral pulmonary infiltrates airspace in quality. LABORATORY DATA: Reviewed. White count was not elevated. SARS-CoV-2 testing is pending. His arterial blood gas initially pH 7.28, PaCO2 of 71, pO2 of 83. Repeat arterial blood gas; pH of 7.45, PaCO2 of 48, PaO2 of 75. His INR was 1.5. Electrolytes were noted. BUN and creatinine were elevated. BNP was elevated. PAST MEDICAL HISTORY: Remarkable for diabetes, hypertension, obesity, renal insufficiency, chronic AFib, obstructive sleep apnea, cardiomyopathy, CVA. PAST SURGICAL HISTORY: Status post AICD placement. SOCIAL HISTORY: He resides at a [facility]. There is no history of smoking. ALLERGIES: No known drug allergies. REVIEW OF SYSTEMS: Unobtainable secondary to the patient's condition. PHYSICAL EXAMINATION: VITAL SIGNS: Since admission, he has had a T-max of 99.8. HEENT: Eyes, the sclerae were nonicteric. NECK: Jugular venous distention was not elevated. No lymphadenopathy. CHEST: Full expansion. LUNGS: Adequate flow with some scattered rhonchi. CARDIOVASCULAR: Regular rate and rhythm with S1, S2, no S3. ABDOMEN: Soft, nontender, nondistended. EXTREMITIES: No clubbing, cyanosis or edema. NEUROLOGIC: The patient was awake, alert, following commands. A detailed neuro exam was not performed. LABORATORY DATA: As indicated above. Blood cultures once again 1/2 positive cultures for Gram-positive cocci in clusters. IMPRESSION: 1. Acute hypoxemic respiratory failure. 2. Bacteremia 3. Abnormal x-ray revealing bilateral pulmonary infiltrates. 4. Possible COVID-19. 5. Acute on chronic heart failure. 6. Renal insufficiency. 7. Diabetes. 8. Hypertension. DISCUSSION: The patient presents with complex medical decision making. He comes in with hypoxic abnormal x-ray with comorbidities of diabetes, hypertension, chronic kidney disease and congestive heart failure. He also is bacteremic. He will be treated for the possibility of Gram-positive, Gram-negative pneumonia. Check SARS-CoV-2. He will be maintained in isolation room. DVT and GI prophylaxis will be obtained. ID has been consulted. Continue current empiric antibiotics, oxygen supplementation, BiPAP. No need for intubation at this time. Full note dictated, discussed with Dr. Moody. Acute hypoxemic respiratory failure, possibly bacteremic, possible COVID-19. See orders. ZORA CATHERINE MD DR: PABLO/nila JOB#: [id number] / [id number]
[2020-02-07] MEDS ORDERED: WARFARIN 3 MG TABLET. PO SCH (16:00)
[2020-02-07] MEDS: APIXABAN 5 MG TABLET. PO SCH (20:39)
[2020-02-08] VITALS (23 sets, daily range): BP systolic 97–131; BP diastolic 50–82
[2020-02-08 05:44] LABS: HEMATOCRIT 31.8 % (39.0-53.0); HEMOGLOBIN 10.5 g/dL (13.0-17.5); RED BLOOD COUNT 3.19 x10^6/uL (4.30-5.70); RED CELL DISTRIBUTION WIDTH 15.5 % (11.5-14.5); WHITE BLOOD COUNT 6.7 x10^3/uL (4.0-11.0)
[2020-02-08] MEDS: PIPERACILLIN/TAZOBACTAM 2.25 GM in IV NORMAL SALINE 50ML 50 ML IV SCH ×3 (05:47→17:38)
[2020-02-08 06:10] LABS: ALBUMIN/GLOBULIN RATIO 0.5 (1.0-1.7); CALCIUM 7.9 mg/dL (8.5-10.1); CREATININE 1.7 mg/dL (0.7-1.3); GFR 39.9; POTASSIUM 3.3 mmol/L (3.5-5.1); TOTAL BILIRUBIN 0.8 mg/dL (0.2-1.0); TOTAL PROTEIN 6.3 g/dL (6.4-8.2)
[2020-02-08 07:19] LABS: PROTHROMBIN TIME PATIENT 16.6 SEC (11.7-14.0)
--- NOTE | 2020-02-08 07:52 | PDOC ---
Infectious Disease Note Subjective Subjective pt is awake, on bipap, says feeling ok ROS ROS no n/v/d Vital Sign Vital Signs Vital Signs Date Time Temp Pulse Resp B/P (MAP) Pulse Ox O2 Delivery O2 Flow Rate FiO2 02/08/20 07:19 95 BiPAP/CPAP 02/08/20 07:00 80 19 105/57 (73) 02/08/20 04:00 97.9 97.9 Physical Exam PHYSICAL EXAM GENERAL: Alert, oriented gentleman, not in distress. VITAL SIGNS: Stable HEENT: NAD. NECK: Supple, no JVP, no lymphadenopathy. LUNGS: Clear. HEART: S1, S2 regular. ABDOMEN: Benign. EXTREMITIES: No edema, cyanosis. The patient does have venous insufficiency changes in the leg. SKIN: Unremarkable. NEUROLOGIC: The patient is alert, awake, able to communicate simple questions and able to answer appropriately, does move all the extremities, although very weak and debilitated. Labs Lab Laboratory Tests Test 02/07/20 08:43 02/07/20 09:35 02/08/20 05:25 O2 Saturation 95 % (92-99) Arterial Blood pH 7.45 (7.35-7.45) Arterial Blood pCO2 at Patient Temp 48 mmHg (35-46) Arterial Blood pO2 at Patient Temp 75 mmHg (65-108) Arterial Blood HCO3 32 mmol/L (21-28) Arterial Blood Base Excess 7 mmol/L (-3-3) FiO2 60% White Blood Count 6.8 x10^3/uL (4.0-11.0) 6.7 x10^3/uL (4.0-11.0) Red Blood Count 3.34 x10^6/uL (4.30-5.70) 3.19 x10^6/uL (4.30-5.70) Hemoglobin 11.0 g/dL (13.0-17.5) 10.5 g/dL (13.0-17.5) Hematocrit 33.2 % (39.0-53.0) 31.8 % (39.0-53.0) Mean Corpuscular Volume 100 fL (79-100) 100 fL (79-100) Mean Corpuscular Hemoglobin 33 pg (25-35) 33 pg (25-35) Mean Corpuscular Hemoglobin Concent 33 g/dL (31-37) 33 g/dL (31-37) Red Cell Distribution Width 15.8 % (11.5-14.5) 15.5 % (11.5-14.5) Platelet Count 177 x10^3/uL (140-400) 182 x10^3/uL (140-400) Neutrophils (%) (Auto) 78 % (31-73) Lymphocytes (%) (Auto) 9 % (24-48) Monocytes (%) (Auto) 9 % (0-9) Eosinophils (%) (Auto) 5 % (0-3) Basophils (%) (Auto) 1 % (0-3) Neutrophils # (Auto) 5.3 x10^3/uL (1.8-7.7) Lymphocytes # (Auto) 0.6 x10^3/uL (1.0-4.8) Monocytes # (Auto) 0.6 x10^3/uL (0.0-1.1) Eosinophils # (Auto) 0.3 x10^3/uL (0.0-0.7) Basophils # (Auto) 0.0 x10^3/uL (0.0-0.2) Prothrombin Time 18.0 SEC (11.7-14.0) 16.6 SEC (11.7-14.0) Prothromb Time International Ratio 1.5 (0.8-1.1) 1.4 (0.8-1.1) Sodium Level 147 mmol/L (136-145) 146 mmol/L (136-145) Potassium Level 3.6 mmol/L (3.5-5.1) 3.3 mmol/L (3.5-5.1) Chloride Level 106 mmol/L (98-107) 107 mmol/L (98-107) Carbon Dioxide Level 33 mmol/L (21-32) 35 mmol/L (21-32) Anion Gap 8 (6-14) 4 (6-14) Blood Urea Nitrogen 27 mg/dL (8-26) 29 mg/dL (8-26) Creatinine 1.7 mg/dL (0.7-1.3) 1.7 mg/dL (0.7-1.3) Estimated GFR (Cockcroft-Gault) 39.9 39.9 Glucose Level 72 mg/dL (70-99) 73 mg/dL (70-99) Calcium Level 8.4 mg/dL (8.5-10.1) 7.9 mg/dL (8.5-10.1) Magnesium Level 2.2 mg/dL (1.8-2.4) BUN/Creatinine Ratio 17 (6-20) Total Bilirubin 0.8 mg/dL (0.2-1.0) Aspartate Amino Transf (AST/SGOT) 11 U/L (15-37) Alanine Aminotransferase (ALT/SGPT) 10 U/L (16-63) Alkaline Phosphatase 58 U/L (46-116) Total Protein 6.3 g/dL (6.4-8.2) Albumin 2.0 g/dL (3.4-5.0) Albumin/Globulin Ratio 0.5 (1.0-1.7) Micro Microbiology 02/06/20 Blood Culture - Final, Complete Objective Assessment IMPRESSION: 1. Blood cultures positive 1 out of 2 most likely to be contaminant, identification is pending. 2. Pulmonary infiltrate. COVID-19 neg 3. Hypoxemia. 3. Congestive heart failure. 4. Renal insufficiency. 5. Diabetes. 6. Hypertension. 7. Obesity. Plan Plan of Care cont antibiotics cont supportive care bipap overall prognosis guarded MARY ARMENTA MD Feb 08, 2020 07:52
[2020-02-08] MEDS ORDERED: POTASSIUM CHLORIDE 20 MEQ TABLET.ER. PO ONE (08:00)
[2020-02-08 08:13] LABS: BASE EXCESS ABG 9 mmol/L (-3-3); HCO3 ABG 34 mmol/L (21-28); PCO2 ABG 48 mmHg (35-46); PO2 ABG 62 mmHg (65-108); SAT O2 ABG 91 % (92-99)
[2020-02-08 08:43] LABS: FIO2 ABG 60 BIPAP
[2020-02-08] MEDS: APIXABAN 5 MG TABLET. PO SCH ×2 (09:01→21:22)
[2020-02-08] MEDS: GLIMEPIRIDE 2 MG TABLET. PO SCH (09:01)
[2020-02-08] MEDS: TORSEMIDE 20 MG TABLET. PO SCH (09:01)
[2020-02-08] MEDS: AMIODARONE HCL 200 MG TABLET. PO SCH (09:02)
[2020-02-08] MEDS: CARVEDILOL 6.25 MG TABLET. PO SCH ×3 (09:02→17:38)
[2020-02-08] MEDS: POLYETHYLENE GLYCOL 3350 17 GM PACKET. PO SCH (09:03)
[2020-02-08] MEDS: ASPIRIN CHEWABLE 81 MG TABLET. PO SCH (09:03)
[2020-02-08] MEDS: LACTOBACILLUS RHAMNOSUS GG 1 CAPSULE. PO SCH ×2 (09:03→21:22)
--- NOTE | 2020-02-08 09:25 | PDOC ---
PULMONARY PROGRESS NOTES Subjective Patient on BiPAP continues to be short of air no chest pain no pressure Vitals Vital Signs Date Time Temp Pulse Resp B/P (MAP) Pulse Ox O2 Delivery O2 Flow Rate FiO2 02/08/20 09:07 89 112/65 02/08/20 08:00 19 94 BiPAP/CPAP 02/08/20 04:00 97.9 97.9 ROS: No Nausea, No Chest Pain, No Abdominal Pain, No Increase Cough General: Alert Lungs: Crackles Cardiovascular: S1, S2 Abdomen: Other Neuro Exam: Alert Extremities: Other (Edema, peripheral vascular change) Skin: Warm Labs Laboratory Tests Test 02/06/20 19:00 02/06/20 21:52 02/06/20 22:23 02/07/20 01:13 White Blood Count 9.4 x10^3/uL (4.0-11.0) Red Blood Count 3.39 x10^6/uL (4.30-5.70) Hemoglobin 11.6 g/dL (13.0-17.5) Hematocrit 33.4 % (39.0-53.0) Mean Corpuscular Volume 98 fL (79-100) Mean Corpuscular Hemoglobin 34 pg (25-35) Mean Corpuscular Hemoglobin Concent 35 g/dL (31-37) Red Cell Distribution Width 15.5 % (11.5-14.5) Platelet Count 189 x10^3/uL (140-400) Neutrophils (%) (Auto) 80 % (31-73) Lymphocytes (%) (Auto) 7 % (24-48) Monocytes (%) (Auto) 11 % (0-9) Eosinophils (%) (Auto) 2 % (0-3) Basophils (%) (Auto) 1 % (0-3) Neutrophils # (Auto) 7.5 x10^3/uL (1.8-7.7) Lymphocytes # (Auto) 0.6 x10^3/uL (1.0-4.8) Monocytes # (Auto) 1.0 x10^3/uL (0.0-1.1) Eosinophils # (Auto) 0.2 x10^3/uL (0.0-0.7) Basophils # (Auto) 0.1 x10^3/uL (0.0-0.2) Sodium Level 144 mmol/L (136-145) Potassium Level 3.9 mmol/L (3.5-5.1) Chloride Level 105 mmol/L (98-107) Carbon Dioxide Level 35 mmol/L (21-32) Anion Gap 4 (6-14) Blood Urea Nitrogen 25 mg/dL (8-26) Creatinine 1.7 mg/dL (0.7-1.3) Estimated GFR (Cockcroft-Gault) 39.9 BUN/Creatinine Ratio 15 (6-20) Glucose Level 121 mg/dL (70-99) Lactic Acid Level 1.3 mmol/L (0.4-2.0) Calcium Level 8.2 mg/dL (8.5-10.1) Total Bilirubin 1.1 mg/dL (0.2-1.0) Aspartate Amino Transf (AST/SGOT) 15 U/L (15-37) Alanine Aminotransferase (ALT/SGPT) 10 U/L (16-63) Alkaline Phosphatase 78 U/L (46-116) Troponin I Quantitative < 0.017 ng/mL (0.000-0.055) YM-Lqa-N-Type Natriuretic Peptide 5495 pg/mL (0-124) Total Protein 7.3 g/dL (6.4-8.2) Albumin 2.6 g/dL (3.4-5.0) Albumin/Globulin Ratio 0.6 (1.0-1.7) Coronavirus (PCR) Not detected (Not Detected) Glucose (Fingerstick) 117 mg/dL (70-99) O2 Saturation 93 % (92-99) 92 % (92-99) Arterial Blood pH 7.28 (7.35-7.45) 7.41 (7.35-7.45) Arterial Blood pCO2 at Patient Temp 71 mmHg (35-46) 59 mmHg (35-46) Arterial Blood pO2 at Patient Temp 83 mmHg (65-108) 70 mmHg (65-108) Arterial Blood HCO3 33 mmol/L (21-28) 36 mmol/L (21-28) Arterial Blood Base Excess 4 mmol/L (-3-3) 9 mmol/L (-3-3) Oxyhemoglobin 91.1 % Methemoglobin 0.4 % (0.0-1.9) Carbon Monoxide, Quantitative 1.7 % (0.0-1.9) FiO2 100 50 Test 02/07/20 08:43 02/07/20 09:35 02/08/20 05:25 02/08/20 08:00 O2 Saturation 95 % (92-99) 91 % (92-99) Arterial Blood pH 7.45 (7.35-7.45) 7.47 (7.35-7.45) Arterial Blood pCO2 at Patient Temp 48 mmHg (35-46) 48 mmHg (35-46) Arterial Blood pO2 at Patient Temp 75 mmHg (65-108) 62 mmHg (65-108) Arterial Blood HCO3 32 mmol/L (21-28) 34 mmol/L (21-28) Arterial Blood Base Excess 7 mmol/L (-3-3) 9 mmol/L (-3-3) FiO2 60% 60 bipap White Blood Count 6.8 x10^3/uL (4.0-11.0) 6.7 x10^3/uL (4.0-11.0) Red Blood Count 3.34 x10^6/uL (4.30-5.70) 3.19 x10^6/uL (4.30-5.70) Hemoglobin 11.0 g/dL (13.0-17.5) 10.5 g/dL (13.0-17.5) Hematocrit 33.2 % (39.0-53.0) 31.8 % (39.0-53.0) Mean Corpuscular Volume 100 fL (79-100) 100 fL (79-100) Mean Corpuscular Hemoglobin 33 pg (25-35) 33 pg (25-35) Mean Corpuscular Hemoglobin Concent 33 g/dL (31-37) 33 g/dL (31-37) Red Cell Distribution Width 15.8 % (11.5-14.5) 15.5 % (11.5-14.5) Platelet Count 177 x10^3/uL (140-400) 182 x10^3/uL (140-400) Neutrophils (%) (Auto) 78 % (31-73) Lymphocytes (%) (Auto) 9 % (24-48) Monocytes (%) (Auto) 9 % (0-9) Eosinophils (%) (Auto) 5 % (0-3) Basophils (%) (Auto) 1 % (0-3) Neutrophils # (Auto) 5.3 x10^3/uL (1.8-7.7) Lymphocytes # (Auto) 0.6 x10^3/uL (1.0-4.8) Monocytes # (Auto) 0.6 x10^3/uL (0.0-1.1) Eosinophils # (Auto) 0.3 x10^3/uL (0.0-0.7) Basophils # (Auto) 0.0 x10^3/uL (0.0-0.2) Prothrombin Time 18.0 SEC (11.7-14.0) 16.6 SEC (11.7-14.0) Prothromb Time International Ratio 1.5 (0.8-1.1) 1.4 (0.8-1.1) Sodium Level 147 mmol/L (136-145) 146 mmol/L (136-145) Potassium Level 3.6 mmol/L (3.5-5.1) 3.3 mmol/L (3.5-5.1) Chloride Level 106 mmol/L (98-107) 107 mmol/L (98-107) Carbon Dioxide Level 33 mmol/L (21-32) 35 mmol/L (21-32) Anion Gap 8 (6-14) 4 (6-14) Blood Urea Nitrogen 27 mg/dL (8-26) 29 mg/dL (8-26) Creatinine 1.7 mg/dL (0.7-1.3) 1.7 mg/dL (0.7-1.3) Estimated GFR (Cockcroft-Gault) 39.9 39.9 Glucose Level 72 mg/dL (70-99) 73 mg/dL (70-99) Calcium Level 8.4 mg/dL (8.5-10.1) 7.9 mg/dL (8.5-10.1) Magnesium Level 2.2 mg/dL (1.8-2.4) BUN/Creatinine Ratio 17 (6-20) Total Bilirubin 0.8 mg/dL (0.2-1.0) Aspartate Amino Transf (AST/SGOT) 11 U/L (15-37) Alanine Aminotransferase (ALT/SGPT) 10 U/L (16-63) Alkaline Phosphatase 58 U/L (46-116) Total Protein 6.3 g/dL (6.4-8.2) Albumin 2.0 g/dL (3.4-5.0) Albumin/Globulin Ratio 0.5 (1.0-1.7) Laboratory Tests Test 02/07/20 09:35 02/08/20 05:25 02/08/20 08:00 White Blood Count 6.8 x10^3/uL (4.0-11.0) 6.7 x10^3/uL (4.0-11.0) Red Blood Count 3.34 x10^6/uL (4.30-5.70) 3.19 x10^6/uL (4.30-5.70) Hemoglobin 11.0 g/dL (13.0-17.5) 10.5 g/dL (13.0-17.5) Hematocrit 33.2 % (39.0-53.0) 31.8 % (39.0-53.0) Mean Corpuscular Volume 100 fL (79-100) 100 fL (79-100) Mean Corpuscular Hemoglobin 33 pg (25-35) 33 pg (25-35) Mean Corpuscular Hemoglobin Concent 33 g/dL (31-37) 33 g/dL (31-37) Red Cell Distribution Width 15.8 % (11.5-14.5) 15.5 % (11.5-14.5) Platelet Count 177 x10^3/uL (140-400) 182 x10^3/uL (140-400) Neutrophils (%) (Auto) 78 % (31-73) Lymphocytes (%) (Auto) 9 % (24-48) Monocytes (%) (Auto) 9 % (0-9) Eosinophils (%) (Auto) 5 % (0-3) Basophils (%) (Auto) 1 % (0-3) Neutrophils # (Auto) 5.3 x10^3/uL (1.8-7.7) Lymphocytes # (Auto) 0.6 x10^3/uL (1.0-4.8) Monocytes # (Auto) 0.6 x10^3/uL (0.0-1.1) Eosinophils # (Auto) 0.3 x10^3/uL (0.0-0.7) Basophils # (Auto) 0.0 x10^3/uL (0.0-0.2) Prothrombin Time 18.0 SEC (11.7-14.0) 16.6 SEC (11.7-14.0) Prothromb Time International Ratio 1.5 (0.8-1.1) 1.4 (0.8-1.1) Sodium Level 147 mmol/L (136-145) 146 mmol/L (136-145) Potassium Level 3.6 mmol/L (3.5-5.1) 3.3 mmol/L (3.5-5.1) Chloride Level 106 mmol/L (98-107) 107 mmol/L (98-107) Carbon Dioxide Level 33 mmol/L (21-32) 35 mmol/L (21-32) Anion Gap 8 (6-14) 4 (6-14) Blood Urea Nitrogen 27 mg/dL (8-26) 29 mg/dL (8-26) Creatinine 1.7 mg/dL (0.7-1.3) 1.7 mg/dL (0.7-1.3) Estimated GFR (Cockcroft-Gault) 39.9 39.9 Glucose Level 72 mg/dL (70-99) 73 mg/dL (70-99) Calcium Level 8.4 mg/dL (8.5-10.1) 7.9 mg/dL (8.5-10.1) Magnesium Level 2.2 mg/dL (1.8-2.4) BUN/Creatinine Ratio 17 (6-20) Total Bilirubin 0.8 mg/dL (0.2-1.0) Aspartate Amino Transf (AST/SGOT) 11 U/L (15-37) Alanine Aminotransferase (ALT/SGPT) 10 U/L (16-63) Alkaline Phosphatase 58 U/L (46-116) Total Protein 6.3 g/dL (6.4-8.2) Albumin 2.0 g/dL (3.4-5.0) Albumin/Globulin Ratio 0.5 (1.0-1.7) O2 Saturation 91 % (92-99) Arterial Blood pH 7.47 (7.35-7.45) Arterial Blood pCO2 at Patient Temp 48 mmHg (35-46) Arterial Blood pO2 at Patient Temp 62 mmHg (65-108) Arterial Blood HCO3 34 mmol/L (21-28) Arterial Blood Base Excess 9 mmol/L (-3-3) FiO2 60 bipap Medications Active Scripts Medications Dose Route/Sig Max Daily Dose Days Date Category Senokot (Sennosides) 8.6 Mg Tablet 2 Tab PO BID 20 02/07/20 Reported Finasteride 5 Mg Tablet 1 Tab PO DAILY 02/07/20 Reported Multi Vitamin Daily (Multivitamin) 1 Each Tablet 1 Tab PO DAILY 30 02/07/20 Reported Hydrocodone-Apap 10-325 (Hydrocodone Bit/Acetaminophen) 1 Tab Tablet 1 Tab PO PRN Q4HRS PRN 02/07/20 Reported Flomax (Tamsulosin Hcl) 0.4 Mg Cap.er.24h 1 Cap PO HS 02/07/20 Reported Eliquis (Apixaban) 5 Mg Tablet 5 Mg PO BID 02/07/20 Reported Tylenol (Acetaminophen) 325 Mg Tablet 2 Tab PO PRN Q4HRS 12/05/18 Reported Nystatin 15 Gm Powder 1 Yamila TP TID 12/05/18 Reported Carvedilol (Carvedilol) 6.25 Mg Tablet 6.25 Mg PO BIDWMEALS 12/05/18 Reported Torsemide 20 Mg Tablet 2 Tab PO DAILY 12/05/18 Reported Glimepiride 2 Mg Tablet 1 Tab PO DAILY 12/05/18 Reported Aspirin 81 Mg Tab.chew 1 Tab PO DAILY 12/05/18 Reported Amlodipine Besylate 5 Mg Tablet 5 Mg PO DAILY 12/05/18 Reported Amiodarone Hcl 200 Mg Tablet 1 Tab PO DAILY 12/05/18 Reported Impression . IMPRESSION: 1. Acute hypoxemic respiratory failure. 2. Bacteremia 3. Abnormal x-ray revealing bilateral pulmonary infiltrates. 4. Possible COVID-19. 5. Acute on chronic heart failure. 6. Renal insufficiency. 7. Diabetes. 8. Hypertension. Plan . SARS-CoV-2 negative, clinical presentation highly suspicious will repeat test. Empiric antibiotics. Maintain in isolation DVT GI prophylax Follow ID recommendation PRN BiPAP Total cumulative critical care time of 30 minutes, reviewing data, labs, chest x-ray, and formulating a plan ZORA CATHERINE MD Feb 08, 2020 09:25
[2020-02-08] MEDS: amLODIPine BESYLATE 5 MG TABLET PO SCH (09:44)
[2020-02-08] MEDS: NYSTATIN TOPICAL POWDER 15GM BOTTLE. TP SCH ×3 (09:44→21:22)
[2020-02-08] MEDS: DAPTOmycin (GENERIC) IVPB 600 MG in IV NORMAL SALINE 50ML 50 ML IV SCH (10:44)
--- NOTE | 2020-02-08 12:22 | PN ---
DATE: SUBJECTIVE: The patient is resting, slightly propped up in bed, in no apparent respiratory distress. He continued to be on BiPAP, maintaining his oxygen saturation of 98% on FiO2 of 60%. He is awake, alert. Denied any chest pain. PHYSICAL EXAMINATION: GENERAL: When I examined him, he looked pale, no jaundice, cyanosis or thyromegaly. No jugular venous distention. No limb edema. VITAL SIGNS: His heart rate was 73, blood pressure was 112/65, temperature was 97.9, respiratory rate was 19 and oxygen saturation was 98% on FiO2 of 60%. HEAD, EYES, EARS, NOSE AND THROAT: Normocephalic, atraumatic. NECK: Supple. HEART: Showed normal first and second heart sounds. No gallop or murmur. CHEST: Clear to auscultation. No crepitation or rhonchi. ABDOMEN: Distended, soft, nontender. No guarding or rigidity. No organomegaly. All hernial orifice intact. Bowel sounds normal. NEUROLOGIC: He is awake, alert, responding appropriately. All cranial nerves are intact. He moves extremities without difficulty. His intake over the last 24 hours was incompletely recorded, output also is incompletely recorded. LABORATORY DATA: His lab work this morning showed a white cell count 6700, hemoglobin 10.5, hematocrit 31, MCV 100, and platelet count of 182,000. His chemistry showed a serum sodium 146, potassium 3.3, chloride 107, bicarbonate 35, anion gap of 4, BUN 29, creatinine 1.7, estimated GFR was 40 mL per minute, glucose was 73, calcium was 7.9. Total bilirubin, AST, ALT, alkaline phosphatase were normal. Total protein 6.3, albumin 2. His prothrombin time 16.6 and INR 1.4. I transpired that the patient is actually on apixaban rather than Coumadin. ASSESSMENT: 1. In summary, this is a 69-year-old male patient who was admitted with acute hypoxic hypercapnic respiratory failure. 2. Healthcare-associated pneumonia with growth of Staphylococcus aureus and in fact both in 2 bottles out of 2, for which his Zyvox was switched to daptomycin. The patient is known to have chronic hypoxic hypercapnic respiratory failure. 3. Morbid obesity, obstructive sleep apnea, on CPAP. 4. Cardiomyopathy due to the patient has chronic diastolic congestive heart failure. 5. The patient is known to have atrial fibrillation, rate controlled, well anticoagulated. He has also chronic kidney disease, type 2 diabetes, hypertension. He also has sick sinus syndrome and episode of ventricular tachycardia for which he has an AICD, chronic intertriginous candidiasis. PLAN: To continue with IV antibiotic in the form of daptomycin as well as Zosyn. Continue with Lasix. Continue glimepiride. Continue with amiodarone and carvedilol to control the heart rate. DICTATION ENDS HERE. RENEA RAGLAND MD DR: ANGEL/nila JOB#: [id number] / [id number]
[2020-02-08] MEDS: AMMONIUM LACTATE 12% TOPICAL LOTION 226GM BOTTLE. TP SCH ×2 (14:11→21:00)
--- NOTE | 2020-02-08 14:44 | NUR ---
SS following up with discharge planning. SS reviewed pt chart and discussed with pt RN. Pt is LTC resident from [facility], ; fax [phone]. Pt COVID19 negative. Pt on BIPAP, IV Zosyn, and IV Daptomycin. SS will continue to follow for discharge planning.
[2020-02-09] VITALS (25 sets, daily range): BP systolic 97–144; BP diastolic 41–86
[2020-02-09] MEDS: PIPERACILLIN/TAZOBACTAM 2.25 GM in IV NORMAL SALINE 50ML 50 ML IV SCH ×4 (00:26→18:04)
[2020-02-09 07:07] LABS: ALBUMIN 2.1 g/dL (3.4-5.0); ALBUMIN/GLOBULIN RATIO 0.5 (1.0-1.7); CALCIUM 7.5 mg/dL (8.5-10.1); CREATININE 1.6 mg/dL (0.7-1.3); GFR 42.8; POTASSIUM 3.9 mmol/L (3.5-5.1); TOTAL BILIRUBIN 0.7 mg/dL (0.2-1.0); TOTAL PROTEIN 6.6 g/dL (6.4-8.2)
[2020-02-09] MEDS ORDERED: DEXTROSE 50% 25 GM / 50ML DISP.SYRIN. IV ONE ×2 (07:39→08:00)
--- NOTE | 2020-02-09 08:10 | PDOC ---
Infectious Disease Note Subjective Subjective pt is awake, on bipap, says feeling ok ROS ROS No nausea vomiting diarrhea Vital Sign Vital Signs Vital Signs Date Time Temp Pulse Resp B/P (MAP) Pulse Ox O2 Delivery O2 Flow Rate FiO2 02/09/20 06:00 60 20 105/61 (76) 98 BiPAP/CPAP 02/09/20 04:00 97.9 97.9 02/08/20 18:00 Physical Exam PHYSICAL EXAM GENERAL: Alert, oriented gentleman, not in distress. VITAL SIGNS: Stable HEENT: NAD. NECK: Supple, no JVP, no lymphadenopathy. LUNGS: Clear. HEART: S1, S2 regular. ABDOMEN: Benign. EXTREMITIES: No edema, cyanosis. The patient does have venous insufficiency changes in the leg. SKIN: Unremarkable. NEUROLOGIC: The patient is alert, awake, able to communicate simple questions and able to answer appropriately, does move all the extremities, although very weak and debilitated. Labs Lab Laboratory Tests Test 02/09/20 06:30 Sodium Level 142 mmol/L (136-145) Potassium Level 3.9 mmol/L (3.5-5.1) Chloride Level 106 mmol/L (98-107) Carbon Dioxide Level 34 mmol/L (21-32) Anion Gap 2 (6-14) Blood Urea Nitrogen 23 mg/dL (8-26) Creatinine 1.6 mg/dL (0.7-1.3) Estimated GFR (Cockcroft-Gault) 42.8 BUN/Creatinine Ratio 14 (6-20) Glucose Level 44 mg/dL (70-99) Calcium Level 7.5 mg/dL (8.5-10.1) Total Bilirubin 0.7 mg/dL (0.2-1.0) Aspartate Amino Transf (AST/SGOT) 12 U/L (15-37) Alanine Aminotransferase (ALT/SGPT) 8 U/L (16-63) Alkaline Phosphatase 65 U/L (46-116) Total Protein 6.6 g/dL (6.4-8.2) Albumin 2.1 g/dL (3.4-5.0) Albumin/Globulin Ratio 0.5 (1.0-1.7) Thyroid Stimulating Hormone (TSH) 1.787 uIU/mL (0.358-3.74) Micro Blood culture 1 out of 2 MSSA Objective Assessment IMPRESSION: 1. Blood cultures positive 1 out of 2 most likely to be contaminant, identification is pending. 2. Pulmonary infiltrate. COVID-19 neg 3. Hypoxemia. 3. Congestive heart failure. 4. Renal insufficiency. 5. Diabetes. 6. Hypertension. 7. Obesity. Plan Plan of Care cont antibiotics, Zosyn Continue daptomycin cont supportive care bipap overall prognosis guarded MARY ARMENTA MD Feb 09, 2020 08:10
[2020-02-09] MEDS: AMMONIUM LACTATE 12% TOPICAL LOTION 226GM BOTTLE. TP SCH ×2 (09:00→21:00)
[2020-02-09] MEDS: amLODIPine BESYLATE 5 MG TABLET PO SCH (09:00)
[2020-02-09] MEDS: GLIMEPIRIDE 2 MG TABLET. PO SCH (09:00)
[2020-02-09] MEDS: NYSTATIN TOPICAL POWDER 15GM BOTTLE. TP SCH ×3 (09:00→22:20)
[2020-02-09] MEDS: AMIODARONE HCL 200 MG TABLET. PO SCH (09:28)
[2020-02-09] MEDS: APIXABAN 5 MG TABLET. PO SCH ×2 (09:28→21:43)
[2020-02-09] MEDS: TORSEMIDE 20 MG TABLET. PO SCH (09:28)
[2020-02-09] MEDS: LACTOBACILLUS RHAMNOSUS GG 1 CAPSULE. PO SCH ×2 (09:28→21:43)
[2020-02-09] MEDS: POLYETHYLENE GLYCOL 3350 17 GM PACKET. PO SCH (09:28)
[2020-02-09] MEDS: ASPIRIN CHEWABLE 81 MG TABLET. PO SCH (09:28)
[2020-02-09] MEDS: CARVEDILOL 6.25 MG TABLET. PO SCH ×2 (09:29→16:23)
[2020-02-09] MEDS: DAPTOmycin (GENERIC) IVPB 600 MG in IV NORMAL SALINE 50ML 50 ML IV SCH (09:29)
--- NOTE | 2020-02-09 10:28 | PDOC ---
PULMONARY PROGRESS NOTES Subjective Patient with no new symptoms Patient on BiPAP continues to be short of air no chest pain no pressure Vitals Vital Signs Date Time Temp Pulse Resp B/P (MAP) Pulse Ox O2 Delivery O2 Flow Rate FiO2 02/09/20 09:29 72 105/57 02/09/20 09:09 96 BiPAP/CPAP 02/09/20 06:00 20 02/09/20 04:00 97.9 97.9 02/08/20 18:00 ROS: No Nausea, No Chest Pain, No Abdominal Pain, No Increase Cough General: Alert Lungs: Crackles Cardiovascular: S1, S2 Abdomen: Other Neuro Exam: Alert Extremities: Other (Edema, peripheral vascular change) Skin: Warm Labs Laboratory Tests Test 02/08/20 05:25 02/08/20 08:00 02/09/20 06:30 02/09/20 09:45 White Blood Count 6.7 x10^3/uL (4.0-11.0) Red Blood Count 3.19 x10^6/uL (4.30-5.70) Hemoglobin 10.5 g/dL (13.0-17.5) Hematocrit 31.8 % (39.0-53.0) Mean Corpuscular Volume 100 fL (79-100) Mean Corpuscular Hemoglobin 33 pg (25-35) Mean Corpuscular Hemoglobin Concent 33 g/dL (31-37) Red Cell Distribution Width 15.5 % (11.5-14.5) Platelet Count 182 x10^3/uL (140-400) Prothrombin Time 16.6 SEC (11.7-14.0) Prothromb Time International Ratio 1.4 (0.8-1.1) Sodium Level 146 mmol/L (136-145) 142 mmol/L (136-145) Potassium Level 3.3 mmol/L (3.5-5.1) 3.9 mmol/L (3.5-5.1) Chloride Level 107 mmol/L (98-107) 106 mmol/L (98-107) Carbon Dioxide Level 35 mmol/L (21-32) 34 mmol/L (21-32) Anion Gap 4 (6-14) 2 (6-14) Blood Urea Nitrogen 29 mg/dL (8-26) 23 mg/dL (8-26) Creatinine 1.7 mg/dL (0.7-1.3) 1.6 mg/dL (0.7-1.3) Estimated GFR (Cockcroft-Gault) 39.9 42.8 BUN/Creatinine Ratio 17 (6-20) 14 (6-20) Glucose Level 73 mg/dL (70-99) 44 mg/dL (70-99) Calcium Level 7.9 mg/dL (8.5-10.1) 7.5 mg/dL (8.5-10.1) Total Bilirubin 0.8 mg/dL (0.2-1.0) 0.7 mg/dL (0.2-1.0) Aspartate Amino Transf (AST/SGOT) 11 U/L (15-37) 12 U/L (15-37) Alanine Aminotransferase (ALT/SGPT) 10 U/L (16-63) 8 U/L (16-63) Alkaline Phosphatase 58 U/L (46-116) 65 U/L (46-116) Total Protein 6.3 g/dL (6.4-8.2) 6.6 g/dL (6.4-8.2) Albumin 2.0 g/dL (3.4-5.0) 2.1 g/dL (3.4-5.0) Albumin/Globulin Ratio 0.5 (1.0-1.7) 0.5 (1.0-1.7) O2 Saturation 91 % (92-99) Arterial Blood pH 7.47 (7.35-7.45) Arterial Blood pCO2 at Patient Temp 48 mmHg (35-46) Arterial Blood pO2 at Patient Temp 62 mmHg (65-108) Arterial Blood HCO3 34 mmol/L (21-28) Arterial Blood Base Excess 9 mmol/L (-3-3) FiO2 60 bipap Thyroid Stimulating Hormone (TSH) 1.787 uIU/mL (0.358-3.74) Glucose (Fingerstick) 65 mg/dL (70-99) Laboratory Tests Test 02/09/20 06:30 02/09/20 09:45 Sodium Level 142 mmol/L (136-145) Potassium Level 3.9 mmol/L (3.5-5.1) Chloride Level 106 mmol/L (98-107) Carbon Dioxide Level 34 mmol/L (21-32) Anion Gap 2 (6-14) Blood Urea Nitrogen 23 mg/dL (8-26) Creatinine 1.6 mg/dL (0.7-1.3) Estimated GFR (Cockcroft-Gault) 42.8 BUN/Creatinine Ratio 14 (6-20) Glucose Level 44 mg/dL (70-99) Calcium Level 7.5 mg/dL (8.5-10.1) Total Bilirubin 0.7 mg/dL (0.2-1.0) Aspartate Amino Transf (AST/SGOT) 12 U/L (15-37) Alanine Aminotransferase (ALT/SGPT) 8 U/L (16-63) Alkaline Phosphatase 65 U/L (46-116) Total Protein 6.6 g/dL (6.4-8.2) Albumin 2.1 g/dL (3.4-5.0) Albumin/Globulin Ratio 0.5 (1.0-1.7) Thyroid Stimulating Hormone (TSH) 1.787 uIU/mL (0.358-3.74) Glucose (Fingerstick) 65 mg/dL (70-99) Medications Active Scripts Medications Dose Route/Sig Max Daily Dose Days Date Category Senokot (Sennosides) 8.6 Mg Tablet 2 Tab PO BID 20 02/07/20 Reported Finasteride 5 Mg Tablet 1 Tab PO DAILY 02/07/20 Reported Multi Vitamin Daily (Multivitamin) 1 Each Tablet 1 Tab PO DAILY 30 02/07/20 Reported Hydrocodone-Apap 10-325 (Hydrocodone Bit/Acetaminophen) 1 Tab Tablet 1 Tab PO PRN Q4HRS PRN 02/07/20 Reported Flomax (Tamsulosin Hcl) 0.4 Mg Cap.er.24h 1 Cap PO HS 02/07/20 Reported Eliquis (Apixaban) 5 Mg Tablet 5 Mg PO BID 02/07/20 Reported Tylenol (Acetaminophen) 325 Mg Tablet 2 Tab PO PRN Q4HRS 12/05/18 Reported Nystatin 15 Gm Powder 1 [place] TP TID 12/05/18 Reported Carvedilol (Carvedilol) 6.25 Mg Tablet 6.25 Mg PO BIDWMEALS 12/05/18 Reported Torsemide 20 Mg Tablet 2 Tab PO DAILY 12/05/18 Reported Glimepiride 2 Mg Tablet 1 Tab PO DAILY 12/05/18 Reported Aspirin 81 Mg Tab.chew 1 Tab PO DAILY 12/05/18 Reported Amlodipine Besylate 5 Mg Tablet 5 Mg PO DAILY 12/05/18 Reported Amiodarone Hcl 200 Mg Tablet 1 Tab PO DAILY 12/05/18 Reported Impression . IMPRESSION: 1. Acute hypoxemic respiratory failure. 2. Bacteremia 3. Abnormal x-ray revealing bilateral pulmonary infiltrates. 4. Possible COVID-19. First SARS-CoV-2 negative repeat test pending 5. Acute on chronic heart failure. 6. Renal insufficiency. 7. Diabetes. 8. Hypertension. Plan . Antibiotics per ID SARS-CoV-2 negative, clinical presentation highly suspicious will repeat test. Empiric antibiotics. Maintain in isolation DVT GI prophylax PRN BiPAP Total cumulative critical care time of 30 minutes, reviewing data, labs, chest x-ray, and formulating a plan ZORA CATHERINE MD Feb 09, 2020 10:28
--- NOTE | 2020-02-09 15:22 | NUR ---
SS following up with discharge planning. SS reviewed pt chart and discussed with pt RN. COVID19 negative. Pt remains on the BIPAP at this time. Pt on IV Zosyn. SS left voicemail with [facility] to discuss discharge planning and LTACH referral. SS phoned and faxed referral to [facility], ; fax [phone]. SS will continue to follow for discharge planning.
--- NOTE | 2020-02-09 20:10 | PN ---
DATE: 02/09/2020 SUBJECTIVE: The patient is resting, slightly propped up in bed, in no apparent respiratory distress. He is definitely more awake and alert. Denied any complaint. Nursing staff, however, stated that his blood sugars dropped down this morning to about 49. He did receive 50 mL of 50% dextrose. PHYSICAL EXAMINATION: GENERAL: When I examined him this afternoon, he looked pale. No jaundice, cyanosis, or thyromegaly. No jugular venous distention. No limb edema. VITAL SIGNS: His rate was 72, blood pressure was 117/70, temperature was 98.6, respiratory rate was 16, and oxygen saturation was 94% on FiO2 of 60% on BiPAP machine. HEAD, EYES, EARS, NOSE AND THROAT: Showed normocephalic and atraumatic. NECK: Supple. CARDIAC: Normal first and second heart sounds. No gallop or murmur. CHEST: Clear to auscultation. No crepitation or rhonchi. ABDOMEN: Distended, soft, and nontender. NEUROLOGIC: He was grossly intact. His intake over the last 24 hours was 1925 and output was 1400. LABORATORY DATA: Lab work this morning showed a serum sodium of 142, potassium was 3.9, chloride 106, bicarbonate 34, anion gap of 2, BUN 23, creatinine 1.6, and estimated GFR was 43 mL per minute. His glucose was 44 and calcium was 7.5. Total bilirubin, AST, ALT, and alkaline phosphatase were normal. Total protein 6.6 and albumin 2.1. TSH was 1.787. His white cell count was 6700, hemoglobin 10, hematocrit 32, MCV 100, and platelet count of 182,000. His coronavirus by PCR was not detectable. ASSESSMENT: 1. This is a 69-year-old male patient who was admitted with acute hypoxic hypercapnic respiratory failure. 2. Healthcare-associated pneumonia with growth of Staphylococcus aureus in 2 bottles out of 2, for which he is on Zosyn and daptomycin. 3. The patient is known to have chronic hypoxic hypercapnic respiratory failure, on CPAP. 4. Morbid obesity with obstructive sleep apnea. 5. Cardiomyopathy with chronic diastolic congestive heart failure. 6. The patient is known to have atrial fibrillation, rate controlled, well anticoagulated. 7. Chronic kidney disease. 8. Type 2 diabetes mellitus. 9. Hypertension. 10. Sick sinus syndrome with episodes of ventricular tachycardia, for which he has an AICD. 12. Chronic intertriginous candidiasis. PLAN: Plan is to continue with IV antibiotic in the form of daptomycin as well as Zosyn. Continue with IV Lasix. I will discontinue his glimepiride altogether. Continue with amiodarone and carvedilol to control the heart rate. RENEA RAGLAND MD DR: ANGEL/nila JOB#: [id number] / [id number]
[2020-02-10] VITALS (12 sets, daily range): BP systolic 107–139; BP diastolic 63–83
[2020-02-10] MEDS: PIPERACILLIN/TAZOBACTAM 2.25 GM in IV NORMAL SALINE 50ML 50 ML IV SCH ×4 (01:05→17:17)
[2020-02-10 04:59] LABS: PROTHROMBIN TIME PATIENT 18.1 SEC (11.7-14.0)
--- NOTE | 2020-02-10 07:52 | PDOC ---
Infectious Disease Note Subjective Subjective pt is awake, on bipap, says feeling ok ROS ROS no n/v/d/sob Vital Sign Vital Signs Vital Signs Date Time Temp Pulse Resp B/P (MAP) Pulse Ox O2 Delivery O2 Flow Rate FiO2 02/10/20 06:00 76 21 139/82 (101) 98 BiPAP/CPAP 02/10/20 05:00 98.7 98.7 02/09/20 18:00 15.0 Physical Exam PHYSICAL EXAM GENERAL: Alert, oriented gentleman, not in distress. VITAL SIGNS: Stable HEENT: NAD. NECK: Supple, no JVP, no lymphadenopathy. LUNGS: Clear. HEART: S1, S2 regular. ABDOMEN: Benign. EXTREMITIES: No edema, cyanosis. The patient does have venous insufficiency changes in the leg. SKIN: Unremarkable. NEUROLOGIC: The patient is alert, awake, able to communicate simple questions and able to answer appropriately, does move all the extremities, although very weak and debilitated. Labs Lab Laboratory Tests Test 02/09/20 09:45 02/09/20 21:49 02/10/20 04:00 Glucose (Fingerstick) 65 mg/dL (70-99) 74 mg/dL (70-99) Prothrombin Time 18.1 SEC (11.7-14.0) Prothromb Time International Ratio 1.5 (0.8-1.1) Micro Blood culture 1 out of 2 MSSA Objective Assessment IMPRESSION: 1. Blood cultures positive MSSA from 02/05, 02/08 pending identification is pending. 2. Pulmonary infiltrate. COVID-19 neg 3. Hypoxemia. 3. Congestive heart failure. 4. Renal insufficiency. 5. Diabetes. 6. Hypertension. 7. Obesity. Plan Plan of Care cont antibiotics, Zosyn, for now soon to change to iv cefazolin cont supportive care bipap overall prognosis guarded MARY ARMENTA MD Feb 10, 2020 07:52
[2020-02-10] MEDS: AMMONIUM LACTATE 12% TOPICAL LOTION 226GM BOTTLE. TP SCH ×2 (09:00→20:48)
[2020-02-10] MEDS: NYSTATIN TOPICAL POWDER 15GM BOTTLE. TP SCH ×3 (09:00→20:48)
[2020-02-10] MEDS: CARVEDILOL 6.25 MG TABLET. PO SCH ×2 (09:21→17:17)
[2020-02-10] MEDS: APIXABAN 5 MG TABLET. PO SCH ×2 (09:21→20:48)
[2020-02-10] MEDS: LACTOBACILLUS RHAMNOSUS GG 1 CAPSULE. PO SCH ×2 (09:21→20:48)
[2020-02-10] MEDS: POLYETHYLENE GLYCOL 3350 17 GM PACKET. PO SCH (09:21)
[2020-02-10] MEDS: TORSEMIDE 20 MG TABLET. PO SCH (09:21)
[2020-02-10] MEDS: AMIODARONE HCL 200 MG TABLET. PO SCH (09:22)
[2020-02-10] MEDS: ASPIRIN CHEWABLE 81 MG TABLET. PO SCH (09:22)
[2020-02-10] MEDS: amLODIPine BESYLATE 5 MG TABLET PO SCH (09:22)
--- NOTE | 2020-02-10 12:53 | PN ---
DATE: 02/10/2020 SUBJECTIVE: The patient is resting, slightly propped up in bed, no apparent distress. He is awake, alert, continued to require high oxygen flow. He is on 15 liters, maintaining his oxygen saturation at around 92-93%. He continues to be on IV antibiotics and apparently was accepted at [facility], although they would not be able to take him today. I discussed this option with him and he is agreeable to it. PHYSICAL EXAMINATION: GENERAL: When I examined him this morning, he looked pale, but no jaundice, cyanosis or thyromegaly. No jugular venous distention. No limb edema. VITAL SIGNS: His heart rate was 82, blood pressure was 129/83, temperature was 99.2, respiratory rate was 21 and oxygen saturation was 92% on 15 liters of oxygen. HEAD, EYES, EARS, NOSE AND THROAT: Showed normocephalic, atraumatic. NECK: Supple. HEART: Showed normal first and second heart sounds with no gallop or murmur. CHEST: Clear to auscultation. No crepitation or rhonchi. ABDOMEN: Distended, soft, nontender. NEUROLOGIC: He was awake, alert, responding appropriately. All cranial nerves are intact. He moves extremities without difficulty, although he is mostly bedbound. His intake over the last 24 hours was 1750, output 1575 mL. LABORATORY DATA: His most recent white cell count was 6700, hemoglobin 11, hematocrit 32, MCV 100, and platelet count of 182,000. His chemistry showed a serum sodium 142, potassium 3.9, chloride 106, bicarbonate 34, anion gap of 2, BUN 23, creatinine 1.6, estimated GFR was 43 mL per minute. His glucose was 686, calcium was 7.5. Total bilirubin, AST, ALT, alkaline phosphatase were normal. Total protein was 6.6, albumin 2.1. TSH of 1.787. His serology showed that his coronavirus by PCR nondetectable twice. ASSESSMENT: This is a 69-year-old male patient who was admitted with; 1. Acute hypoxic hypercapnic respiratory failure. 2. He is diagnosed with healthcare-associated pneumonia with growth of Staphylococcus aureus in 2/2 bottles, for which he is on Zosyn and daptomycin. FINAL DIAGNOSES: 1. Staphylococcus capitis sensitive to ceftriaxone. 2. The patient is known to have chronic hypoxic hypercapnic respiratory failure, on CPAP. 3. Morbid obesity, obstructive sleep apnea. 4. Chronic diastolic congestive heart failure. 5. The patient is known to have atrial fibrillation, rate controlled, well anticoagulated. 6. Chronic kidney disease. 7. Type 2 diabetes mellitus. 8. Hypertension. 9. Sick sinus syndrome with episodes of ventricular tachycardia for which he has an AICD. 10. Chronic intertriginous candidiasis. PLAN: To continue with IV antibiotic in the form of ceftriaxone and Zosyn. Continue with IV Lasix. I have discontinued his glimepiride because of hypoglycemia. Meanwhile, continue with amiodarone and carvedilol to control the heart rate, we will transfer him tomorrow to [facility]. RENEA RAGLAND MD DR: ANGEL/nila JOB#: [id number] / [id number]
--- NOTE | 2020-02-10 14:23 | NUR ---
SS following up with discharge planning. SS reviewed pt chart and discussed with pt RN. Pt on BIPAP. COVID19 negative. Pt accepted at [facility], ; fax [phone], when bed available. Dr. Brennan notified. Packet and med list on the chart. SS will continue to follow for discharge planning.
--- NOTE | 2020-02-10 15:28 | PDOC ---
PULMONARY PROGRESS NOTES Subjective Patient off of BiPAP, feels slightly better. Cough mostly nonproductive no chest pain no pressure Vitals Vital Signs Date Time Temp Pulse Resp B/P (MAP) Pulse Ox O2 Delivery O2 Flow Rate FiO2 02/10/20 12:00 Nasal Cannula 02/10/20 11:00 99.2 82 21 129/83 (98) 92 15.0 99.2 ROS: No Nausea, No Chest Pain, No Abdominal Pain, No Increase Cough General: Alert Lungs: Crackles Cardiovascular: S1, S2 Abdomen: Other Neuro Exam: Alert Extremities: Other (Edema, peripheral vascular change) Skin: Warm Labs Laboratory Tests Test 02/09/20 06:30 02/09/20 09:45 02/09/20 21:49 02/10/20 04:00 Sodium Level 142 mmol/L (136-145) Potassium Level 3.9 mmol/L (3.5-5.1) Chloride Level 106 mmol/L (98-107) Carbon Dioxide Level 34 mmol/L (21-32) Anion Gap 2 (6-14) Blood Urea Nitrogen 23 mg/dL (8-26) Creatinine 1.6 mg/dL (0.7-1.3) Estimated GFR (Cockcroft-Gault) 42.8 BUN/Creatinine Ratio 14 (6-20) Glucose Level 44 mg/dL (70-99) Calcium Level 7.5 mg/dL (8.5-10.1) Total Bilirubin 0.7 mg/dL (0.2-1.0) Aspartate Amino Transf (AST/SGOT) 12 U/L (15-37) Alanine Aminotransferase (ALT/SGPT) 8 U/L (16-63) Alkaline Phosphatase 65 U/L (46-116) Total Protein 6.6 g/dL (6.4-8.2) Albumin 2.1 g/dL (3.4-5.0) Albumin/Globulin Ratio 0.5 (1.0-1.7) Thyroid Stimulating Hormone (TSH) 1.787 uIU/mL (0.358-3.74) Glucose (Fingerstick) 65 mg/dL (70-99) 74 mg/dL (70-99) Prothrombin Time 18.1 SEC (11.7-14.0) Prothromb Time International Ratio 1.5 (0.8-1.1) Test 02/10/20 08:08 Glucose (Fingerstick) 85 mg/dL (70-99) Laboratory Tests Test 02/09/20 21:49 02/10/20 04:00 02/10/20 08:08 Glucose (Fingerstick) 74 mg/dL (70-99) 85 mg/dL (70-99) Prothrombin Time 18.1 SEC (11.7-14.0) Prothromb Time International Ratio 1.5 (0.8-1.1) Medications Active Scripts Medications Dose Route/Sig Max Daily Dose Days Date Category Senokot (Sennosides) 8.6 Mg Tablet 2 Tab PO BID 20 02/07/20 Reported Finasteride 5 Mg Tablet 1 Tab PO DAILY 02/07/20 Reported Multi Vitamin Daily (Multivitamin) 1 Each Tablet 1 Tab PO DAILY 30 02/07/20 Reported Hydrocodone-Apap 10-325 (Hydrocodone Bit/Acetaminophen) 1 Tab Tablet 1 Tab PO PRN Q4HRS PRN 02/07/20 Reported Flomax (Tamsulosin Hcl) 0.4 Mg Cap.er.24h 1 Cap PO HS 02/07/20 Reported Eliquis (Apixaban) 5 Mg Tablet 5 Mg PO BID 02/07/20 Reported Tylenol (Acetaminophen) 325 Mg Tablet 2 Tab PO PRN Q4HRS 12/05/18 Reported Nystatin 15 Gm Powder 1 Yamila TP TID 12/05/18 Reported Carvedilol (Carvedilol) 6.25 Mg Tablet 6.25 Mg PO BIDWMEALS 12/05/18 Reported Torsemide 20 Mg Tablet 2 Tab PO DAILY 12/05/18 Reported Glimepiride 2 Mg Tablet 1 Tab PO DAILY 12/05/18 Reported Aspirin 81 Mg Tab.chew 1 Tab PO DAILY 12/05/18 Reported Amlodipine Besylate 5 Mg Tablet 5 Mg PO DAILY 12/05/18 Reported Amiodarone Hcl 200 Mg Tablet 1 Tab PO DAILY 12/05/18 Reported Impression . IMPRESSION: 1. Acute hypoxemic respiratory failure. 2. Bacteremia 3. Abnormal x-ray revealing bilateral pulmonary infiltrates. 4. Morbid obesity 5. Acute on chronic heart failure. 6. Renal insufficiency. 7. Diabetes. 8. Hypertension. 9. SARS-CoV-2 negative x2 Plan . Antibiotics per ID Continue PRN BiPAP Empiric antibiotics. Maintain in isolation DVT GI prophylax Discussed with Dr. Brennan Total cumulative critical care time of 30 minutes, reviewing data, labs, chest x-ray, and formulating a plan ZORA CATHERINE MD Feb 10, 2020 15:28
--- NOTE | 2020-02-10 22:00 | NUR ---
Pt transferred out of ICU to CVC room 201. Nursing report given to Baron GONZALEZ. Pt on non rebreather during transfer, no s/s distress, alert and oriented x 4 and updated on plan of care.
--- NOTE | 2020-02-10 22:00 | NUR ---
ICU TRANSFER, assumed care of patient. placed on bipap, resting in bed, call light in reach. Will continue to monitor.
[2020-02-11] MEDS: PIPERACILLIN/TAZOBACTAM 2.25 GM in IV NORMAL SALINE 50ML 50 ML IV SCH ×3 (00:40→12:24)
[2020-02-11 03:50] VITALS: BP 137/78
--- NOTE | 2020-02-11 05:48 | PDOC ---
PULMONARY PROGRESS NOTES Subjective on bipap, alert, sob not worse, has occ cough, is tired Vitals Vital Signs Date Time Temp Pulse Resp B/P (MAP) Pulse Ox O2 Delivery O2 Flow Rate FiO2 02/11/20 04:03 15.0 02/11/20 04:00 94 BiPAP/CPAP 02/11/20 03:50 81 24 137/78 (97) 02/10/20 23:10 97.8 97.8 ROS: No Nausea, No Chest Pain, No Abdominal Pain, No Increase Cough General: Alert Lungs: Crackles Cardiovascular: S1, S2 Abdomen: Other Neuro Exam: Alert Extremities: Other (Edema, peripheral vascular change) Skin: Warm Labs Laboratory Tests Test 02/09/20 06:30 02/09/20 09:45 02/09/20 21:49 02/10/20 04:00 Sodium Level 142 mmol/L (136-145) Potassium Level 3.9 mmol/L (3.5-5.1) Chloride Level 106 mmol/L (98-107) Carbon Dioxide Level 34 mmol/L (21-32) Anion Gap 2 (6-14) Blood Urea Nitrogen 23 mg/dL (8-26) Creatinine 1.6 mg/dL (0.7-1.3) Estimated GFR (Cockcroft-Gault) 42.8 BUN/Creatinine Ratio 14 (6-20) Glucose Level 44 mg/dL (70-99) Calcium Level 7.5 mg/dL (8.5-10.1) Total Bilirubin 0.7 mg/dL (0.2-1.0) Aspartate Amino Transf (AST/SGOT) 12 U/L (15-37) Alanine Aminotransferase (ALT/SGPT) 8 U/L (16-63) Alkaline Phosphatase 65 U/L (46-116) Total Protein 6.6 g/dL (6.4-8.2) Albumin 2.1 g/dL (3.4-5.0) Albumin/Globulin Ratio 0.5 (1.0-1.7) Thyroid Stimulating Hormone (TSH) 1.787 uIU/mL (0.358-3.74) Glucose (Fingerstick) 65 mg/dL (70-99) 74 mg/dL (70-99) Prothrombin Time 18.1 SEC (11.7-14.0) Prothromb Time International Ratio 1.5 (0.8-1.1) Test 02/10/20 08:08 Glucose (Fingerstick) 85 mg/dL (70-99) Laboratory Tests Test 02/10/20 08:08 Glucose (Fingerstick) 85 mg/dL (70-99) Medications Active Scripts Medications Dose Route/Sig Max Daily Dose Days Date Category Senokot (Sennosides) 8.6 Mg Tablet 2 Tab PO BID 20 02/07/20 Reported Finasteride 5 Mg Tablet 1 Tab PO DAILY 02/07/20 Reported Multi Vitamin Daily (Multivitamin) 1 Each Tablet 1 Tab PO DAILY 30 02/07/20 Reported Hydrocodone-Apap 10-325 (Hydrocodone Bit/Acetaminophen) 1 Tab Tablet 1 Tab PO PRN Q4HRS PRN 02/07/20 Reported Flomax (Tamsulosin Hcl) 0.4 Mg Cap.er.24h 1 Cap PO HS 02/07/20 Reported Eliquis (Apixaban) 5 Mg Tablet 5 Mg PO BID 02/07/20 Reported Tylenol (Acetaminophen) 325 Mg Tablet 2 Tab PO PRN Q4HRS 12/05/18 Reported Nystatin 15 Gm Powder 1 Yamila TP TID 12/05/18 Reported Carvedilol (Carvedilol) 6.25 Mg Tablet 6.25 Mg PO BIDWMEALS 12/05/18 Reported Torsemide 20 Mg Tablet 2 Tab PO DAILY 12/05/18 Reported Glimepiride 2 Mg Tablet 1 Tab PO DAILY 12/05/18 Reported Aspirin 81 Mg Tab.chew 1 Tab PO DAILY 12/05/18 Reported Amlodipine Besylate 5 Mg Tablet 5 Mg PO DAILY 12/05/18 Reported Amiodarone Hcl 200 Mg Tablet 1 Tab PO DAILY 12/05/18 Reported Impression . IMPRESSION: 1. Acute hypoxemic respiratory failure. 2. MSSA bacteremia from 02/05, Repeat BC 02/08 neg to date 3. Abnormal x-ray revealing bilateral pulmonary infiltrates. 4. Morbid obesity 5. Acute on chronic heart failure. 6. Renal insufficiency. 7. Diabetes. 8. Hypertension. 9. SARS-CoV-2 negative x2 Plan . 02 titration Antibiotics per ID Continue PRN BiPAP during day and continuously at night Empiric antibiotics. DVT GI prophylax Discussed with MACHO Haas MD Feb 11, 2020 05:48
[2020-02-11 07:00] VITALS: BP 113/61
[2020-02-11] MEDS: POLYETHYLENE GLYCOL 3350 17 GM PACKET. PO SCH (08:00)
[2020-02-11] MEDS: NYSTATIN TOPICAL POWDER 15GM BOTTLE. TP SCH (09:00)
[2020-02-11] MEDS: APIXABAN 5 MG TABLET. PO SCH (09:00)
[2020-02-11] MEDS: amLODIPine BESYLATE 5 MG TABLET PO SCH (09:00)
[2020-02-11] MEDS: AMMONIUM LACTATE 12% TOPICAL LOTION 226GM BOTTLE. TP SCH (09:00)
[2020-02-11] MEDS: AMIODARONE HCL 200 MG TABLET. PO SCH (09:01)
[2020-02-11] MEDS: CARVEDILOL 6.25 MG TABLET. PO SCH (09:01)
[2020-02-11] MEDS: LACTOBACILLUS RHAMNOSUS GG 1 CAPSULE. PO SCH (09:01)
[2020-02-11] MEDS: ASPIRIN CHEWABLE 81 MG TABLET. PO SCH (09:01)
[2020-02-11] MEDS ORDERED: PIPE2.257 IV (09:57)
--- NOTE | 2020-02-11 09:58 | SNU/HH DC ---
DISCHARGE ORDERS DISCHARGE INFORMATION: DISCHARGE DATE: Feb 11, 2020 FINAL DIAGNOSIS Problems Medical Problems: (1) Pneumonia Status: Acute CONDITION ON DISCHARGE: Stable CODE STATUS: Code Status: Full LTAC: ADMIT TO LTAC: Yes POST DISCHARGE ORDERS: ACTIVITY ORDERS: Resume previous activity BATHING ORDERS: Shower-keep dressing dry, No Tub Bath until see DIET AFTER DISCHARGE: ADA CHECKS AFTER DISCHARGE: CHECKS AFTER DISCHARGE: Check blood press - daily, Check blood sugar, ac/hs, Weigh Yourself Daily TREATMENT/EQUIPMENT ORDERS: ADAPTIVE EQUIPMENT NEEDED: None RESPIRATORY EQUIPMENT NEEDED: Oxygen, CPAP Physical Therapy For: Evalulation/Treatment Occupational Therapy For: Evaluation/Treatment DISCHARGE MEDICATIONS: Home Meds Active Scripts Cvnouarqqqtc-Lslp-Iigskxdl,Iso (ZOSYN 2.25 GM PRE-MIX BAG) 2.25 Gm/50 Ml Froz.piggy, 2.25 GM IV Q6H for HCAP for 7 Days, #28 EACH Prov:RENEA RAGLAND MD 02/11/20 Reported Medications Sennosides (SENOKOT) 8.6 Mg Tablet, 2 TAB PO BID for constipation for 20 Days, #80 TAB 0 Refills 02/07/20 Finasteride (FINASTERIDE) 5 Mg Tablet, 1 TAB PO DAILY for BPH, #30 TAB 11 Refills 02/07/20 Multivitamin (MULTI VITAMIN DAILY) 1 Each Tablet, 1 TAB PO DAILY for Multivitamin for 30 Days, #30 TAB 0 Refills 02/07/20 Hydrocodone Bit/Acetaminophen (HYDROCODONE-APAP 10-325 ) 1 Tab Tablet, 1 TAB PO PRN Q4HRS PRN for PAIN, TAB 0 Refills 02/07/20 Tamsulosin Hcl (FLOMAX) 0.4 Mg Cap.er.24h, 1 CAP PO HS for BPH, #30 CAP 11 Refills 02/07/20 Apixaban (ELIQUIS) 5 Mg Tablet, 5 MG PO BID for Afib, TAB 02/07/20 Acetaminophen (TYLENOL) 325 Mg Tablet, 2 TAB PO PRN Q4HRS for pain, #30 TAB 12/05/18 Nystatin (NYSTATIN) 15 Gm Powder, 1 DAVON TP TID for infected sites, #1 BOTTLE 12/05/18 Carvedilol (CARVEDILOL ) 6.25 Mg Tablet, 6.25 MG PO BIDWMEALS for CARDIAC, TAB 5/12/19 Torsemide (TORSEMIDE) 20 Mg Tablet, 2 TAB PO DAILY for fluid retention, #90 TAB 1 Refill 12/05/18 Glimepiride (GLIMEPIRIDE) 2 Mg Tablet, 1 TAB PO DAILY for blood sugars, #30 TAB 5 Refills 12/05/18 Aspirin (ASPIRIN) 81 Mg Tab.chew, 1 TAB PO DAILY for antiplatelet, #30 TAB 3 Refills 12/05/18 Amlodipine Besylate (AMLODIPINE BESYLATE) 5 Mg Tablet, 5 MG PO DAILY for blood pressure, TAB 12/05/18 Amiodarone Hcl (AMIODARONE HCL) 200 Mg Tablet, 1 TAB PO DAILY for heart , #90 TAB 1 Refill 12/05/18 RENEA RAGLAND MD Feb 11, 2020 09:58
[2020-02-11] MEDS: TORSEMIDE 20 MG TABLET. PO SCH (09:59)
--- NOTE | 2020-02-11 10:03 | PDOC ---
Infectious Disease Note Subjective Subjective Denies worsening SOA/cough Denies fever or chills Denies N/V/D ate 100% breakfast ROS ROS as mentioned above Vital Sign Vital Signs Vital Signs Date Time Temp Pulse Resp B/P (MAP) Pulse Ox O2 Delivery O2 Flow Rate FiO2 02/11/20 09:01 75 113/61 02/11/20 07:55 15.0 02/11/20 07:52 92 BiPAP/CPAP 02/11/20 07:00 99.0 25 99.0 Physical Exam PHYSICAL EXAM GENERAL: Propped up in bed, alert, calm, on a nonrebreather HEENT: Oral cavity clear NECK: Supple, no JVP, no lymphadenopathy. LUNGS: Clear. HEART: S1, S2 regular. ABDOMEN: Obee, soft, nontender EXTREMITIES: No edema, cyanosis. venous insufficiency changes in the legs. SKIN: warm to touch. No signs of rash. . NEUROLOGIC: Alert, awake, able to communicate simple questions and able to answer appropriately, does move all the extremities, although very weak and debilitated. PIV Labs Micro Microbiology 02/09/20 Blood Culture - Preliminary, Resulted NO GROWTH AFTER 1 DAY 02/05. FINAL ID= [STAPHYLOCOCCUS AUREUS] STAPHYLOCOCCUS AUREUS ANTIMICROBIAL SUSCEPTIBILITY Final Comment POS EVON TYPE 38 STAPHYLOCOCCUS AUREUS ANTIBIOTIC RESULT INTERPRETATION AZITHROMYCIN <=2 S CLINDAMYCIN 0.5 S CEFOXITIN SCREEN <=4 NEG CIPROFLOXACIN <=1 S CEFTAROLINE <=0.5 S DAPTOMYCIN 1 S ERYTHROMYCIN <=0.25 S GENTAMICIN <=4 S LINEZOLID 2 S LEVOFLOXACIN <=1 S OXACILLIN <=0.25 S PENICILLIN <=0.03 Lang RIFAMPIN <=1 S TRIMETHOPRIM/SULFAMETHOXAZOLE <=0.5/9.5 S TETRACYCLINE >8 R VANCOMYCIN 1 S Objective Assessment MSSA bacteremia from 02/05, Repeat BC 02/08 neg to date Pulmonary infiltrate. COVID-19 neg Hypoxemia. Congestive heart failure. Renal insufficiency. Diabetes. Hypertension. Obesity. On amiodarone Plan Plan of Care Zosyn for now soon to change to iv cefazolin Probiotcs f/u BC Maintain aspiration precautions LTAC soon D/w nursing Overall prognosis guarded Attending Co-Sign The patient was seen and interviewed as well as examined at the bedside. The chart was reviewed. The case was discussed. Agree with the plan of care. REZA BURNHAM APRN Feb 11, 2020 10:02 MARY ARMENTA MD Feb 11, 2020 13:20
--- NOTE | 2020-02-11 10:26 | RAD ---
CHEST AP ONLY 02/11/2020 10:03 AM INDICATION: Worsening shortness of breath COMPARISON: 02/06/2020 TECHNIQUE: Portable frontal view of the chest is provided. FINDINGS: The cardiomediastinal silhouette is similar in appearance. Left chest wall cardiac device is in similar position. Small left and trace right pleural effusion appear progressed with adjacent compressive atelectasis versus infiltrate. Bilateral mixed interstitial and alveolar airspace disease appears worsened with increased consolidative change in the lateral right lower lobe and central right lower lobe. No suspicious osseous abnormality. IMPRESSION: Worsening bilateral mixed interstitial and alveolar airspace disease with more confluent opacity in the lateral right lower lobe and right upper lobe. Increased small left and trace right pleural effusions with adjacent basilar atelectasis versus infiltrates. Electronically signed by: Olesya Lion MD (02/11/2020 10:23 AM) MIKE
[2020-02-11 10:48] LABS: HEMATOCRIT 30.7 % (39.0-53.0); HEMOGLOBIN 10.4 g/dL (13.0-17.5); RED BLOOD COUNT 3.1 x10^6/uL (4.30-5.70); RED CELL DISTRIBUTION WIDTH 15.2 % (11.5-14.5); WHITE BLOOD COUNT 6.7 x10^3/uL (4.0-11.0)
[2020-02-11 11:00] VITALS: BP 124/81
[2020-02-11 11:08] LABS: CALCIUM 7.8 mg/dL (8.5-10.1); CREATININE 1.5 mg/dL (0.7-1.3); GFR 46.1; POTASSIUM 3.9 mmol/L (3.5-5.1)
[2020-02-11 11:21] LABS: ALBUMIN/GLOBULIN RATIO 0.4 (1.0-1.7); TOTAL BILIRUBIN 0.8 mg/dL (0.2-1.0); TOTAL PROTEIN 6.8 g/dL (6.4-8.2)
--- NOTE | 2020-02-11 12:03 | PN ---
DATE: 02/11/2020 SUBJECTIVE: The patient is resting slightly, propped up in bed, no apparent distress. He is awake, alert. On questioning him, he stated that he does not feel generally well, although he could not be more specific. In particular, he denied any chest pain or shortness of breath. PHYSICAL EXAMINATION: GENERAL: When I examined him, he looked well and was clearly in no apparent distress, slightly pale. No jaundice, cyanosis or thyromegaly. No jugular venous distention. No lower limb edema. VITAL SIGNS: His heart rate was 75, blood pressure 113/61, temperature was 99, respiratory rate 25, and oxygen saturation was 92% on 15 liters of oxygen. HEAD, EYES, EARS, NOSE AND THROAT: Normocephalic, atraumatic. NECK: Supple. HEART: Showed normal first and second heart sounds. No gallop or murmur. CHEST: Clear to auscultation. No crepitation or rhonchi. ABDOMEN: Distended, soft, nontender. No guarding or rigidity. No organomegaly. All hernial orifice intact. Bowel sounds normal. NEUROLOGIC: He is awake, alert, responding appropriately. All his cranial nerves are intact. He moves all extremities without difficulty, although he is mostly bedbound. His intake over the last 24 hours was 1800, output was 1985. LABORATORY DATA: As of this morning, his white cell count was 6700, hemoglobin 10, hematocrit 30, MCV 100, and platelet 182,000. As of yesterday, his creatinine was 1.6 with a BUN of 23. ASSESSMENT: 1. Acute hypoxic hypercapnic respiratory failure. 2. Healthcare-associated pneumonia with growth of Staphylococcus capitis, for which he is now on Zosyn. 3. Morbid obesity, obstructive sleep apnea. 4. Chronic diastolic congestive heart failure. 5. Chronic atrial fibrillation, rate controlled, well anticoagulated. 6. Chronic kidney disease. 7. Type 2 diabetes mellitus. 8. Hypertension. 9. Sick sinus syndrome, for which he has automatic implantable cardioverter defibrillator. 10. Chronic intertriginous candidiasis. PLAN: To continue with IV antibiotic in the form of Zosyn. Continue with all his other medications. I will arrange for him to have a chest x-ray ____ was accepted at [facility], he will be discharged there today. RENEA RAGLAND MD DR: Fabio JOB#: [id number] / [id number]
--- NOTE | 2020-02-11 13:10 | NUR ---
Discharge orders and med rec faxed to [facility]. Report called to Estelita at
--- NOTE | 2020-03-09 13:46 | DS ---
DATE OF DISCHARGE: 02/11/2020 HOSPITAL COURSE: The patient is a 70-year-old male patient, who is a resident at [facility] and who apparently was noted by the nursing staff there to be hypoxic, markedly short of breath, confused. He was also febrile with a temperature of 101.5, tachypneic. He was extensively investigated in the Emergency Room. His lab work showed that his white cell count was normal. His chemistries were mostly unremarkable. He has chronic kidney disease and his prothrombin time, INR were subtherapeutic. His blood gases showed acute hypoxic hypercapnic respiratory failure. Chest x-ray showed the patient has cardiomegaly with worsening bilateral airspace infiltrate. Therefore, the patient was admitted with acute hypoxic hypercapnic respiratory failure and treated with healthcare-associated pneumonia protocol in the form of vancomycin and Zosyn. Shortly after he was admitted, he continued to be hypoxic and therefore, he was transferred to the ICU to continue on BiPAP machine. Eventually, he was treated with IV antibiotics and steroids together with bronchodilators. His coronavirus by PCR was not detected twice on 02/05 and 02/07 and his blood cultures remained negative. Eventually, it did grow methicillin-sensitive Staph aureus and as he continued to require IV antibiotics, steroids as well as BiPAP machine, a decision was made to transfer him to [facility] to continue with all these modalities and to start the process of physical and occupational therapy. PHYSICAL EXAMINATION: GENERAL: On the day of discharge, he looked well and was clearly in no apparent respiratory distress, pale, but no jaundice, cyanosis, or thyromegaly. No jugular venous distention. No lower limb edema. VITAL SIGNS: His heart rate was 77, blood pressure was 124/81, temperature was 98, respiratory rate was 20, and oxygen saturation was 97% on 15 liters of oxygen. HEAD, EYES, EARS, NOSE, AND THROAT: Showed normocephalic, atraumatic. NECK: Supple. HEART: Showed normal first and second heart sounds. No gallop or murmur. CHEST: Clear to auscultation. No crepitation or rhonchi anteriorly. ABDOMEN: Distended, soft, nontender. NEUROLOGIC: He was awake, alert, responding appropriately. All cranial nerves intact. He moves extremities without difficulty, though he is mostly bedbound, chair bound. His intake over the last 24 hours was 1800, output was 1985. LABORATORY DATA: His lab work on the day of discharge showed a white cell count of 6700, hemoglobin 10, hematocrit 30, MCV 99, and platelet count of 193,000. His chemistry showed a serum sodium 141, potassium 3.9, chloride 104, bicarbonate 32, anion gap of 5, BUN 18, creatinine 1.5, estimated GFR was 46 mL per minute, his glucose 190, calcium was 7.8. Total bilirubin, AST, ALT, alkaline phosphatase were normal. Total protein 6.8, albumin was 2. His prothrombin time was 18.1, INR 1.5. His coronavirus PCR was negative twice. DISCHARGE MEDICATIONS: He was transferred to [facility] to continue on piperacillin/tazobactam 2.25 g IV every 6 hours, Tylenol 650 mg every 4 hours, amiodarone 200 mg once a day, amlodipine besylate 5 mg daily, apixaban 5 mg twice a day, aspirin 81 mg once a day, carvedilol 6.25 mg twice a day, finasteride 5 mg daily, glimepiride 2 mg daily, hydrocodone/APAP 10/325 one tablet every 4 hours, multivitamin 1 tablet once a day, nystatin powder apply topically 2 times a day, senna 2 tablets twice a day, tamsulosin/Flomax 0.4 mg at bedtime, and torsemide 40 mg once a day. FINAL DISCHARGE DIAGNOSES: 1. Acute hypoxic hypercapnic respiratory failure. 2. Healthcare-associated pneumonia with growth of Staphylococcus capitis, for which he is now on Zosyn. 3. Morbid obesity, obstructive sleep apnea. 4. Chronic diastolic congestive heart failure. 5. Chronic atrial fibrillation, rate controlled, well anticoagulated. 6. Chronic kidney disease. 7. Type 2 diabetes mellitus. 8. Hypertension. 9. Sick sinus syndrome, for which he has automatic implantable cardioverter defibrillator. 10. Chronic intertriginous candidiasis. RENEA RAGLAND MD DR: ANGEL/nila JOB#: [id number] / [id number]
== END 2020-02-11 13:15 | DRG 177 ==
LOC: ER 18:26 → 6 SOUTH 19:02 → 1 WEST ICU 23:20 → 2 NORTH 02-10 22:34
PROVIDERS: ADMIT Internal Medicine; ATTEND Internal Medicine
PROC: 5A09457 Assistance with Respiratory Ventilation, 24-96 Consecutive Hours, Continuous Positive Airway Pressure (ICD-10-PCS; principal; 2020-02-06)
PROC: 5A09357 Assistance with Respiratory Ventilation, Less than 24 Consecutive Hours, Continuous Positive Airway Pressure (ICD-10-PCS; 2020-02-10)
PROC: 5A09357 Assistance with Respiratory Ventilation, Less than 24 Consecutive Hours, Continuous Positive Airway Pressure (ICD-10-PCS; 2020-02-11)
DX: J15.6 Pneumonia due to other Gram-negative bacteria (principal); J96.21 Acute and chronic respiratory failure with hypoxia; J96.22 Acute and chronic respiratory failure with hypercapnia; I50.33 Acute on chronic diastolic (congestive) heart failure; Z68.41 Body mass index [BMI] 40.0-44.9, adult; I13.0 Hypertensive heart and chronic kidney disease with heart failure and stage 1 through stage 4 chronic kidney disease, or unspecified chronic kidney disease; I42.9 Cardiomyopathy, unspecified; I48.20 Chronic atrial fibrillation, unspecified; J44.0 Chronic obstructive pulmonary disease with (acute) lower respiratory infection; I47.2 Ventricular tachycardia; J15.9 Unspecified bacterial pneumonia; B37.2 Candidiasis of skin and nail; B95.61 Methicillin susceptible Staphylococcus aureus infection as the cause of diseases classified elsewhere; E11.22 Type 2 diabetes mellitus with diabetic chronic kidney disease; E66.01 Morbid (severe) obesity due to excess calories; G47.33 Obstructive sleep apnea (adult) (pediatric); I49.5 Sick sinus syndrome; N18.9 Chronic kidney disease, unspecified; R79.1 Abnormal coagulation profile; Y95 Nosocomial condition; Z20.828 Contact with and (suspected) exposure to other viral communicable diseases; Z79.01 Long term (current) use of anticoagulants; Z82.49 Family history of ischemic heart disease and other diseases of the circulatory system; Z87.891 Personal history of nicotine dependence; Z95.810 Presence of automatic (implantable) cardiac defibrillator; Z86.73 Personal history of transient ischemic attack (TIA), and cerebral infarction without residual deficits; Z91.041 Radiographic dye allergy status
CPT/HCPCS: 36415; 36600; 71045; 80048; 80053; 82805; 82962; 83605; 83735; 83880; 84443; 84484; 85025; 85027; 85610; 87040; 87205; 93005; 94660; 96374; 96375; 99285; J0456; J0878; J2020; J2060; J2270; J2543; J3370; J7040; G0378; U0003-CS